=== PATIENT | male | born 1985 | race Caucasian/White ===

== ENCOUNTER 2022-06-11 11:40 | Inpatient (IN) | payer BC ==
--- OUTSIDE RECORDS SUMMARY | 2022-06-11 11:50 | XMS REPORT | Continuity of Care Document ---
:1985 Author Organization [facility] t Address [address] [place] [address] Care Team Providers Name Role Phone JOSE PABON Primary Care Physician Unavailable GUERLINE ADAM Attending Clinician Unavailable Val Lambert Attending Clinician [phone] NHAN EVANS Attending Clinician Unavailable Nhan Stark Attending Clinician Unknown, Attending Attending Clinician Unavailable Doctor Unassigned, [place] Attending Clinician Unavailable Margie Attending Clinician Unavailable Mookie MATIAS, Mackenzie Moore Attending Clinician Unavailable ETHAN PETTY Attending Clinician Unavailable ETHAN PETTY Attending Clinician Unavailable Jakub RAMÍREZ, Tiffanie Bryan Attending Clinician Sravan Ryan MD, Cristofer Castillo Attending Clinician [phone] Ita RAMÍREZ, Pancho Bowling Attending Clinician Peter PRADO, Ethan Attending Clinician Barbara RAMÍREZ, Uvaldo Celeste Attending Clinician ESCOBAR MACHADO Attending Clinician Unavailable Jeannette RAMÍREZ, Escobar Kenney Attending Clinician CODY DENT Attending Clinician Unavailable Alexandria RAMÍREZ, Wai Hemphill Attending Clinician Christofer RAMÍREZ, Evie Alvarez Attending Clinician Ree RAMÍREZ, Yudi Luna Attending Clinician [phone] Laura RAMÍREZ, Cody Massey Attending Clinician Kwame MATIAS, Niesha Attending Clinician Unavailable Kathleen Petty Attending Clinician Unavailable Daniela Baumann Attending Clinician Unavailable MINOR ALVAREZ Attending Clinician Unavailable Minor Alvarez OD Attending Clinician UNKNOWN, ATTENDING Attending Clinician Unavailable ESTELA GOMES Attending Clinician Unavailable MELLO DARDEN Attending Clinician Unavailable Aurora Mcgowan Audio Employee Attending Clinician Unavailable Michelle OSBORNE, Marla Moore Attending Clinician MARLA LEE Attending Clinician Unavailable Heidi Diaz MD Attending Clinician Tito Stewart MD Attending Clinician Pcp-Lab Attending Clinician Unavailable Romero RAMÍREZ, Rachell Attending Clinician Ye Kirkpatrick MD Attending Clinician Darwin Yao MD Attending Clinician Piazza_D Admitting Clinician Unavailable ETHAN PETTY Admitting Clinician Unavailable Ethan Petty DO Admitting Clinician ESCOBAR MACHADO Admitting Clinician Unavailable YUDI KEENAN Admitting Clinician Unavailable Yudi Keenan MD Admitting Clinician [phone] Physician, No Primary or Family Admitting Clinician Unavaila ble Payers Payer Name Policy Type Policy Number Effective Date Expiration Date Samreen [id number] [place] [id number] 2022 (POS) 00:00:00 [facility] [id number] 2021 (PPO) 00:00:00 Problems Condition Condition Condition Status Onset Resolution Last Treating Co mments Source Name Details Category Date Date Treatment Clinician Date Asperger's Asperger's Problem Active V illage disorder Disorder 09-11 Family 00:00: Practic 00 e Acute Acute Problem [facility] pancreatit Pancreatit 08-11 Fa crystal is is 00:00: Practic 00 e Type II Type II Problem [facility] diabetes Diabetes 08-11 Family mellitus Mellitus 00:00: Practi c uncontroll Uncontroll 00 e ed ed Tobacco Tobacco Disease Active Univers use use 3-30 ity of disorder disorder 00:00: [place] 00 Medical Branch Type 2 Type 2 Disease Active Univers diabetes diabetes 3-30 ity of mellitus mellitus 00:00: [place] without without 00 Medical complicati complicati Br anch on, on, without without long-term long-term current current use of use of insulin insulin SALVADOR SALVADOR Disease Active Univers (obstructi (obstructi 3-30 it y of ve sleep ve sleep 00:00: [place] apnea) apnea) 00 Medical Branch Abnormal Abnormal Disease Active Unive rs liver liver 3-04 ity of function function 00:00: [place] tests tests 00 Medical Branch Allergy to Allergy to Disease Active Overview : Univers other other 3-04 Formattin ity of foods foods 00:00: g of this [place] 00 note Medical might be Branch different from the original. 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-04 it y of recurrent recurrent 00:00: [place] allen major major 00 Medical depressive depressive Br anch disorder disorder Obesity Obesity Disease Active Univers 3-04 ity of 00:00: [place] Medical [facility] Obstructiv Obstructiv Disease Active U nivers e sleep e sleep 3-04 ity of apnea apnea 00:00: [place] (adult) (adult) 00 Medical (pediatric (pediatric Br anch ) ) Other Other Disease Active Univers specified specified 3-04 ity of pervasive pervasive 00:00: [place] developmen developmen 00 Me dical augusto augusto Branch disorders disorders No known No known Disease Unive rs active active ity of problems problems [facility] Allergies, Adverse Reactions, Alerts Allergy Allergy Status Severity Reaction(s) Onset Inactive Treating Comm ents Source Name Type Date Date Clinician SHELLFIS DRUG Active Rash Univers H INGREDI 07-10 ity of DERIVED 00:00: [place] [facility] Shellfis Propensi Active Rash RN Univer s h ty to 07-10 confirmed ity of Derived adverse 00:00: with [place] reaction 00 patient Medical s that Branch allergy is to shellfish only, has received Iodine before with no reaction. Penicill DA Active U UNKNOWN 2020-04 [facility] ins 05-29 [place] 00:00: [facility] 00 are [facility] shellfis FA Active U UNKNOWN 2020-04 [facility] h 05-29 [place] derived 00:00: [facility] 00 are [facility] shellfis FA Active SV 2018-04 [facility] h 06-03 [place] derived 00:00: d 00 [facility] shellfis FA Active SV HIVES 2018-04 [facility] h 2 Clear derived 00:00: [place] 00 [facility] IODINE Drug Active Rash 2013-04 Univers AND Class 0-08 ity of IODIDE 00:00: [place] CONTAINI 00 Medical NG Branch PRODUCTS Iodine Propensi Active Rash 2013-04 Univers And ty to 0-08 ity of Iodide adverse 00:00: [place] Containi reaction 00 Medica l ng s Branch Products PENICILL Drug Active Unknown-Cmnt Un cathy INS Class 7-01 ity of 00:00: [place] 00 Medical Branch Penicill Propensi Active Unknown - Uni vers ins ty to See comments 10-10 ity of adverse 00:00: [place] reaction 00 Medical s Branch Penicill Propensi Active Unknown - Uni vers ins ty to See comments 10-10 ity of adverse 00:00: [place] reaction 00 Medical s Branch Penicill Propensi Active Unknown - Uni vers ins ty to See comments 10-10 ity of adverse 00:00: [place] reaction 00 Medical s Branch PENICILL DA Active U [facility] IN 09-13 Clear 00:00: [place] 00 [facility] Penicill Allergy Active [place] in v to Family substanc Practic e e SULFA Allergy Active [place] (SULFONA to Family MIDE substanc Practic ANTIBIOT e e ICS) Social History Social Habit Start Date Stop Date Quantity Comments Source History [facility] University o f Alcohol Frequency [facility] Branch History [facility] o f Alcohol Std Drinks [facility] Branch History [facility] o f Alcohol Binge [facility] Branch History of tobacco Cigarette Smoker University of use [facility] Exposure to 2022-03-30 2022-04-09 Yes University of SARS-CoV-2 (event) 00:00:00 10:16:00 [facility] Alcohol intake 2022-01-20 2022-01-20 Current drinker Unive rsity of 00:00:00 00:00:00 of alcohol [facility] (finding) Branch Tobacco use and 2019-07-24 2019-07-24 Smokeless Universit y of exposure 00:00:00 00:00:00 tobacco non-user [facility] dical Branch Cigarettes smoked 2019-07-24 2019-07-24 Univers ity of current (pack per 00:00:00 00:00:00 [facility] ) - Reported Branch Cigarette 2019-07-24 2019-07-24 University of pack-years 00:00:00 00:00:00 [facility] Alcohol Comment 2018-11-21 2018-11-21 Seldom Universit y of 00:00:00 00:00:00 [facility] Sex [birth year] Universit y of 00:00:00 00:00:00 [facility] Smoking Status Start Date Stop Date Source Never Smoker [place] Family Dash partida Unknown if ever smoked Universit y of [facility] Smokes tobacco daily 2019-07-24 00:00:00 Univers ity [facility] Medications Ordered Filled Start Stop Current Ordering Indication Dosage Frequency Signature Comments Components Source Medication Medication Date Date Medication? Clinician (SIG) Name Name benzonatate 2021-04 Yes [id number] 200mg Take 1 Univers 200 mg 2-29 capsule by ity of capsule 00:00: mouth 3 [place] (three) Medical times [place] daily as needed for Cough. fluticasone 2021-04 Yes [id number] 2{spray Use 2 Univers propionate 2-29 } Sprays in ity of 50 00:00: each [place] mcg/actuati 00 nostril in Me dical on nasal the Branch spray morning. benzonatate 2021-04 Yes [id number] 200mg Take 1 Univers 200 mg 2-29 capsule by ity of capsule 00:00: mouth 3 [place] 00 (three) Medical times Branch daily as needed for Cough. fluticasone 2021-04 Yes [id number] 2{spray Use 2 Univers propionate 2-29 } Sprays in ity of 50 00:00: each [place] mcg/actuati 00 nostril in Me dical on nasal the Branch spray morning. benzonatate 2021-04 Yes [id number] 200mg Take 1 Univers 200 mg 2-29 capsule by ity of capsule 00:00: mouth 3 [place] 00 (three) Medical times Branch daily as needed for Cough. fluticasone 2021-04 Yes [id number] 2{spray Use 2 Univers propionate 2-29 } Sprays in ity of 50 00:00: each [place] mcg/actuati 00 nostril in Me dical on nasal the Branch spray morning. predniSONE 2021-04- Yes [id number] 40mg Take 2 Univers 20 mg 2-29 01-04 tablets by ity of tablet 00:00: 05:59 mouth in [place] 00 :00 the Medical morning Branch for 5 days. predniSONE 2021-04- Yes [id number] 40mg Take 2 Univers 20 mg 04-15 tablets by ity of tablet 00:00: 05:59 mouth in [place] 00 :00 the Medical morning Branch for 5 days. predniSONE 2021-04- Yes [id number] 40mg Take 2 Univers 20 mg - tablets by ity of tablet 00:00: 05:59 mouth in [place] 00 :00 the Medical morning Branch for 5 days. insulin 2021-04 Yes 38U 38 Units, Unive rs glargine 0-16 Subcutaneo ity o f (LANTUS 02:00: us, [facility], [place] U-100) 00 First dose Medical injection (after Branch 38 Units last modificati on) on 01/24/22 at 2100, Until Discontinu ed, Routine insulin 2021-04 Yes 7U 7 Units, Univer s lispro 0-15 Subcutaneo ity of (human) 17:00: us, TID [place] (HumaLOG 00 MEALS, Medical U-100) First dose Branch injection 7 (after Units last modificati on) on 01/24/22 at 1200, Until Discontinu ed, Routine insulin 2021-04- No 35U 35 Units, Univ ers glargine 0-15 10-15 Subcutaneo ity of (LANTUS 02:00: 14:43 us, [facility], [place] U-100) 00 :22 First dose Medical injection on Wed Branch 35 Units 01/23/22 at 2100, Until Discontinu ed, Routine insulin 2021-04 Yes [id number] 25U inject 25 Univers glargine 0-15 Units ity of 100 unit/mL 00:00: under the [place] injection 00 skin at Medical bedtime. Branch insulin 2021-04 Yes [id number] 6U inject 6 U nivers lispro, 0-15 Units ity of human, 100 00:00: under the [place] unit/mL 00 skin in Medical injection the Branch morning and 6 Units at noon and 6 Units in the evening. inject with meals. insulin 2021-04 Yes [id number] 2U inject 2 U nivers lispro, 0-15 Units ity of human, 100 00:00: under the [place] unit/mL 00 skin 3 Medical injection (three) Branch times daily with meals and at bedtime. insulin 2021-04 Yes [id number] 25U inject 25 Univers glargine 0-15 Units ity of 100 unit/mL 00:00: under the [place] injection 00 skin at Medical bedtime. Branch insulin 2021-04 Yes [id number] 6U inject 6 U nivers lispro, 0-15 Units ity of human, 100 00:00: under the [place] unit/mL 00 skin in Medical injection the Branch morning and 6 Units at noon and 6 Units in the evening. inject with meals. insulin 2021-04 Yes [id number] 2U inject 2 U nivers lispro, 0-15 Units ity of human, 100 00:00: under the [place] unit/mL 00 skin 3 Medical injection (three) Branch times daily with meals and at bedtime. insulin 2021-04 Yes [id number] 25U inject 25 Univers glargine 0-15 Units ity of 100 unit/mL 00:00: under the [place] injection 00 skin at Medical bedtime. Branch insulin 2021-04 Yes [id number] 6U inject 6 U nivers lispro, 0-15 Units ity of human, 100 00:00: under the [place] unit/mL 00 skin in Medical injection the Branch morning and 6 Units at noon and 6 Units in the evening. inject with meals. insulin 2021-04 Yes [id number] 2U inject 2 U nivers lispro, 0-15 Units ity of human, 100 00:00: under the [place] unit/mL 00 skin 3 Medical injection (three) Branch times daily with meals and at bedtime. insulin 2021-04 Yes [id number] 25U inject 25 Univers glargine 0-15 Units ity of 100 unit/mL 00:00: under the [place] injection 00 skin at Medical bedtime. Branch insulin 2021-04 Yes [id number] 6U inject 6 U nivers lispro, 0-15 Units ity of human, 100 00:00: under the [place] unit/mL 00 skin in Medical injection the Branch morning and 6 Units at noon and 6 Units in the evening. inject with meals. insulin 2021-04 Yes [id number] 2U inject 2 U nivers lispro, 0-15 Units ity of human, 100 00:00: under the [place] unit/mL 00 skin 3 Medical injection (three) Branch times daily with meals and at bedtime. insulin 2021-04 Yes [id number] 25U inject 25 Univers glargine 0-15 Units ity of 100 unit/mL 00:00: under the [place] injection 00 skin at Medical bedtime. Branch insulin 2021-04 Yes [id number] 6U inject 6 U nivers lispro, 0-15 Units ity of human, 100 00:00: under the [place] unit/mL 00 skin in Medical injection the Branch morning and 6 Units at noon and 6 Units in the evening. inject with meals. insulin 2021-04 Yes [id number] 2U inject 2 U nivers lispro, 0-15 Units ity of human, 100 00:00: under the [place] unit/mL 00 skin 3 Medical injection (three) Branch times daily with meals and at bedtime. insulin 2021-04 Yes [id number] 25U inject 25 Univers glargine 0-15 Units ity of 100 unit/mL 00:00: under the [place] injection 00 skin at Medical bedtime. Branch insulin 2021-04 Yes [id number] 6U inject 6 U nivers lispro, 0-15 Units ity of human, 100 00:00: under the [place] unit/mL 00 skin in Medical injection the Branch morning and 6 Units at noon and 6 Units in the evening. inject with meals. insulin 2021-04 Yes [id number] 2U inject 2 U nivers lispro, 0-15 Units ity of human, 100 00:00: under the [place] unit/mL 00 skin 3 Medical injection (three) Branch times daily with meals and at bedtime. Sliding 2021-04 Yes Subcutaneo Univ ers Scale 0-14 us, TID ity of Insulin - 22:00: MEALS+HS, [place] Lispro 00 First dose Medical (HumaLOG) + on Wed Branch Fsbg 01/23/22 Testing at 1700, Until Discontinu ed, Routine insulin 2021-04- No 6U 6 Units, Unive rs lispro 0-14 10-15 Subcutaneo ity of (human) 22:00: 14:43 us, TID [place] (HumaLOG 00 :22 MEALS, Medical U-100) First dose Branch injection 6 on Fri Units 01/23/22 at 1700, Until Discontinu ed, Routine dextrose 2021-04 Yes 250mL 250 mL, IV Un cathy 10% (D10W) 0-14 Infusion, ity of bolus 21:29: PRN - SEE [place] infusion 00 INSTRUCTIO Medic al 250 mL NS, Branch Administer over 60 Minutes, Other, If blood glucose is < or = 70 mg/dL and patient is unable to swallow or has mental status changes, Starting on 01/23/22 at 1629
If blood glucose is < or = 70 mg/dL and patient is unable to swallow or has mental status changes (Give glucagon order if patient needs fluid restrictio n): IF IV access available: Dextrose 10%. 1. 125 mL (? bag) of D10W IV infusion - equivalent to 12.5 g dextrose 2. Blood glucose - draw blood glucose 15 minutes after D10W Administra tion. 3. If blood glucose is < 80 mg/dL, repeat.
glucagon 2021-04 Yes 1mg 1 mg, Univers (GLUCAGEN 0-14 Intramuscu ity of DIAGNOSTIC 21:28: lar, PRN, [place] KIT) 56 Starting Medical injection 1 on Fri Branch mg 01/23/22 at 1628, Until Discontinu ed, SERG, Blood Glucose < or = 70 mg/dL and patient is unable to swallow or has mental changes. KCL 2021-04- No 40meq 40 mEq, Univers (KLOR-CON 0-13 10-13 Oral, ity of M20) tablet 20:02: 20:36 ONCE, 1 [place] 40 mEq 00 :00 dose, On Medical [place] Branch 01/22/22 at 1515, Routine D10W 10 % 2021-04- No at 175 Unive rs IV infusion 0-13 10-14 mL/hr, IV it y of 14:45: 14:02 Infusion, [place] 00 :27 CONTINUOUS Medical , Starting Branch on [place] 01/22/22 at 0945, Until 01/23/22 at 0902, Routine D10W 10 % 2021-04- No at 150 Unive rs IV infusion 0-13 10-13 mL/hr, IV it y of 11:30: 14:37 Infusion, [place] 00 :29 CONTINUOUS [facility] , Starting Branch on [facility] 01/22/22 at 0630, Until [facility] 01/22/22 at 0937, Routine D10W 10 % 2021-04- No at 250 Unive rs IV infusion 0-13 10-13 mL/hr, IV it y of 10:15: 11:26 Infusion, [place] 00 :23 CONTINUOUS Medical , Starting Branch on [facility] 01/22/22 at 0515, Until [facility] 01/22/22 at 0626, Routine D10W 10 % 2021-04- No at 200 Unive rs IV infusion 0-13 10-13 mL/hr, IV it y of 07:00: 10:01 Infusion, [place] 00 :12 CONTINUOUS [facility] , Starting Branch on [facility] 01/22/22 at 0200, Until [facility] 01/22/22 at 0501, Routine KCL 2021-04- No 40meq 40 mEq, Univers (KLOR-CON 0-13 10-13 Oral, ity of M20) tablet 06:30: 05:48 ONCE, 1 [place] 40 mEq 00 :00 dose, On Medical [facility] Branch 01/22/22 at 0130, Routine D10W 10 % 2021-04- No at 150 Unive rs IV infusion 0-13 10-13 mL/hr, IV it y of 05:30: 06:54 Infusion, [place] 00 :00 [facility] , Starting Branch on [facility] 01/22/22 at 0030, Until [facility] 01/22/22 at 0154, Routine atorvastati 2021-04 Yes 40mg 40 mg, Univ ers n (LIPITOR) 0-13 Oral, QHS, it y of tablet 40 02:00: First dose [place] mg 00 on [facility] 01/21/22 Branch at 2100, Until Discontinu ed, Routine acetaminoph 2021-04 Yes 650mg 650 mg, Un cathy en 0-13 Oral, ity of (TYLENOL) 01:04: [facility], [place] tablet 650 43 Starting Medic al mg on [facility] Branch 01/21/22 at 2004, Until Discontinu ed, Routine, Pain (scale 4-6), Temp > 38.5 C D5W IV 2021-04- No 1000mL at 150 Univer s infusion 0-12 10-13 mL/hr, IV ity o f 1,000 mL 23:15: 03:56 Infusion, [place] 00 :46 CONTINUOUS Medical , Starting Branch on Wed01/21/22 at 1815, Until Wed01/21/22 at 2256, Routine D5W IV 2021-04- No 1000mL at 125 Univer s infusion 0-12 10-12 mL/hr, IV ity o f 1,000 mL 21:30: 23:06 Infusion, [place] 00 :57 CONTINUOUS Medical , Starting Branch on Wed01/21/22 at 1630, Until Wed01/21/22 at 1806, Routine KCL 2021-04- No 40meq 40 mEq, Univers (KLOR-CON 0-12 10-12 Oral, ity of M20) tablet 17:23: 17:39 ONCE, 1 [place] 40 mEq 00 :00 dose, On Medical Wed Branch 01/21/22 at 1230, SERG D5W IV 2021-04- No 1000mL at 100 Univer s infusion 0-12 10-12 mL/hr, IV ity o f 1,000 mL 16:34: 21:25 Infusion, [place] 00 :09 CONTINUOUS Medical , Starting Branch on Wed01/21/22 at 1145, Until Wed01/21/22 at 1625, Routine insulin 2021-04- No .2U/kg/ 0.2 Univer s regular 0-12 10-14 h Units/kg/h ity o f human 16:31: 11:16 r ?98.9 kg [place] (HUMULIN R) 10 :12 (19.78 Medica l 100 Units mL/hr), IV Bran ch in NaCl Infusion, 0.9% (NS) TITRATE, 100 mL Parameters infusion in Admin. Instr., Starting on Wed01/21/22 at 1131
PL EASE USE NORMOGLYCE MARILEE CALCULATOR &nbs p;For Patients WITHOUT ESRD: &nbs p;INITIA TION OF INSULIN DRIP:&nb sp; I f two consecutiv e blood glucose levels (BG) are at or above 180 mg/dL: begin continuous intravenou s infusion of regular Insulin (100 units/100 mL NS) at the following rate: as follows:&n bsp; 1 unit/hr (1 mL/hr.) if initial BG between 180 and 220 mg/dL OR 2 units/hr (2 mL/hr.) if initial BG above 220 mg/dL. &nbs p;Check BG at least every hour until three consecutiv e BG measuremen ts remain in the 140- 180 mg/dL range; BG monitoring may then change to every 2 hours if patient is otherwise stable. Go back to closer BG monitoring as soon as condition warrants. &nbs p; INSULIN RATE ADJUSTMENT INSTRUCTIO NS (to keep BG in the 140- 180 mg/dL range) &n bsp;FOR BLOOD GLUCOSE LESS THAN OR EQUAL THAN 70 MG/DL: Stop insulin infusion, notify ICU dimension warehouse supervisor, and treat using hypoglycem ia protocol. Once BG &n bsp;greate r than 80 mg/dL start monitoring glucose every hour. Restart Insulin infusion at HALF of prior rate only when TWO consecutiv e BG levels 1 hour apart are at or above 180 mg/dL. &nbs p;FOR BLOOD GLUCOSE BETWEEN 71-139 MG/DL:&nbs p; St op insulin and continue to check BG every hour.&nbsp ; Res tart insulin infusion at HALF of prior rate once BG is above 140 mg/dL.&nbs p; FO R BLOOD GLUCOSE BETWEEN 140-180 MG/DL: Monitor BG hourly; may recheck BG in 2 hours if BG has been stable within this range for THREE consecutiv e readings.& nbsp;&nbsp ;If BG is stable (+/- 20 mg/dL change) at 140-180 mg/dL, no insulin rate change is needed.&nb sp; If BG hourly levels decreasing by more than 20 mg/dL: DECREASE insulin rate by 1.0 unit/hr. If BG hourly levels increasing by more than 20 mg/dL: INCREASE insulin rate by 0.5 unit/hr.&n bsp; FOR BLOOD GLUCOSE ABOVE 180 MG/DL: Monitor BG hourly. If BG falls by less than 40 mg/dL from previous measure, increase insulin rate by 1 unit an hour if BG is between 180 and 220 mg/dL and by 2 units an hour if BG is above 220 mg/dL. Recheck BG in 1 hour.&nbsp ; If BG falls by 40 mg/dL or more from previous measure, then no rate change is needed.&nb sp; N otify ICU Lithoplate Maker if BG remains above 220 mg/dL for longer than 4 hours despite treatment.
fenofibrate 2021-04 Yes 134mg 134 mg, Un cathy micronized 0-12 Oral, ity of (LOFIBRA) 14:00: DAILY, [place] capsule 134 00 First dose Me dical mg on Wed Branch 01/21/22 at 0900, Until Discontinu ed, Routine heparin 2021-04 Yes 5000U 5,000 Univers (porcine) 0-12 Units, ity of injection 13:00: Subcutaneo [place] 5,000 Units 00 us, Q12H, Med ical First dose Branch on Wed01/21/22 at 0800, Until Discontinu ed, Routine KCL 2021-04- No 40meq 40 mEq, Univers (KLOR-CON 001-21 Oral, ity of M20) tablet 07:30: 09:27 ONCE, 1 [place] 40 mEq 00 :00 dose, On Medical Wed Branch 01/21/22 at 0230, Routine potassium 2021-04- No 20meq 20 mEq, IV Univers chloride in 001-21 Piggyback, i ty of water (KCL) 07:00: 10:59 Q2H, 2 [place] 20 mEq/100 00 :00 doses, Medical mL RTU IVPB First dose Br anch 20 mEq on Wed01/21/22 at 0200, Last dose on Wed01/21/22 at 0400, 100 mL magnesium 2021-04- No 2g 2 g, IV Univ ers sulfate in 001-21 Piggyback, it y of water 2 06:30: 07:38 Administer [place] gram/50 mL 00 :00 over 60 Medica l (4 %) Minutes, Branch infusion 2 ONCE, 1 g dose, On Wed01/21/22 at 0130, Routine KCL 2021-04- No 40meq 40 mEq, Univers (KLOR-CON 0-12 10-12 Oral, ity of M20) tablet 06:00: 06:27 ONCE, 1 [place] 40 mEq 00 :00 dose, On Medical Wed Branch 01/21/22 at 0100, Routine KCL 2021-04 No 20meq 20 mEq, Univers (KLOR-CON 0-12 10-12 Oral, Q2H, ity of M20) tablet 03:00: 04:55 2 doses, [place] 20 mEq 00 :00 First dose Medical on Wed Branch 01/20/22 at 2200, Last dose on Wed01/21/22 at 0000, Routine dextrose 50 2021-04 Yes 25mL 25 mL, Univ ers % in water 0-12 Slow IV ity of (D50W) 02:32: Push, PRN, [place] injection 21 Starting Medica l 25 mL on [facility] Branch 01/20/22 at 2132, Until Discontinu ed, SERG, Blood Glucose < or = 70 mg/dL and patient is unable to swallow or has mental status changes. glucagon 2021-04 No 1mg 1 mg, Univers (GLUCAGEN 0-14 Intramuscu ity of DIAGNOSTIC 02:32: 19:38 lar, PRN, [place] KIT) 21 :50 Starting Medical injection 1 on [facility] mg 01/20/22 at 2132, Until Wed01/23/22 at 1438, SERG, Blood Glucose < or = 70 mg/dL and patient is unable to swallow or has mental changes. insulin 2021-04- No 9U/h 9 Units/hr Uni vers regular 001-21 (9 mL/hr), ity o f human 09:18: 16:35 IV [place] (HUMULIN R) 37 :30 Infusion, Med ical 100 Units TITRATE, Branch in NaCl Parameters 0.9% (NS) in Admin. 100 mL Instr., infusion Starting on Wed01/20/22 at 0418
PL EASE USE NORMOGLYCE MARILEE CALCULATOR &nbs p;For Patients WITHOUT ESRD: &nbs p;INITIA TION OF INSULIN DRIP:&nb sp; I f two consecutiv e blood glucose levels (BG) are at or above 180 mg/dL: begin continuous intravenou s infusion of regular Insulin (100 units/100 mL NS) at the following rate: as follows:&n bsp; 1 unit/hr (1 mL/hr.) if initial BG between 180 and 220 mg/dL OR 2 units/hr (2 mL/hr.) if initial BG above 220 mg/dL. &nbs p;Check BG at least every hour until three consecutiv e BG measuremen ts remain in the 140- 180 mg/dL range; BG monitoring may then change to every 2 hours if patient is otherwise stable. Go back to closer BG monitoring as soon as condition warrants. &nbs p; INSULIN RATE ADJUSTMENT INSTRUCTIO NS (to keep BG in the 140- 180 mg/dL range) &n bsp;FOR BLOOD GLUCOSE LESS THAN OR EQUAL THAN 70 MG/DL: Stop insulin infusion, notify ICU dimension warehouse supervisor, and treat using hypoglycem ia protocol. Once BG &n bsp;greate r than 80 mg/dL start monitoring glucose every hour. Restart Insulin infusion at HALF of prior rate only when TWO consecutiv e BG levels 1 hour apart are at or above 180 mg/dL. &nbs p;FOR BLOOD GLUCOSE BETWEEN 71-139 MG/DL:&nbs p; St op insulin and continue to check BG every hour.&nbsp ; Res tart insulin infusion at HALF of prior rate once BG is above 140 mg/dL.&nbs p; FO R BLOOD GLUCOSE BETWEEN 140-180 MG/DL: Monitor BG hourly; may recheck BG in 2 hours if BG has been stable within this range for THREE consecutiv e readings.& nbsp;&nbsp ;If BG is stable (+/- 20 mg/dL change) at 140-180 mg/dL, no insulin rate change is needed.&nb sp; If BG hourly levels decreasing by more than 20 mg/dL: DECREASE insulin rate by 1.0 unit/hr. If BG hourly levels increasing by more than 20 mg/dL: INCREASE insulin rate by 0.5 unit/hr.&n bsp; FOR BLOOD GLUCOSE ABOVE 180 MG/DL: Monitor BG hourly. If BG falls by less than 40 mg/dL from previous measure, increase insulin rate by 1 unit an hour if BG is between 180 and 220 mg/dL and by 2 units an hour if BG is above 220 mg/dL. Recheck BG in 1 hour.&nbsp ; If BG falls by 40 mg/dL or more from previous measure, then no rate change is needed.&nb sp; N otify ICU Lithoplate Maker if BG remains above 220 mg/dL for longer than 4 hours despite treatment.
morpHINE (4 2021-04 No 4mg 4 mg, Slow Univers mg/mL) 001-20 IV Push, ity of injection 4 08:30: 07:46 ONCE, 1 [place] mg 00 :00 dose, On Medical [facility] 01/20/22 at 0330, STAT iopamidol 2021-04- No [id number] 100mL 100 mL, Univers (ISOVUE 001-20 Intravenou ity o f 370-500 mL) 08:00: 08:00 s, ONCE, 1 [place] injection 00 :00 dose, On Medica l 100 mL [facility] 01/20/22 at 0300, Routine ondansetron 2021-04 No 4mg 4 mg, Slow Univers (ZOFRAN 001-20 IV Push, ity of (PF)) 07:30: 07:46 ONCE, 1 [place] injection 4 00 :00 dose, On Medi elian mg [facility] 01/20/22 at 0230, SERG cephALEXin 2021- No [id number] 500mg Take 1 Univers (KEFLEX) 08-09 [id number] capsule by it y of 500 mg 00:00: 04:59 mouth 2 [place] capsule 00 :00 (two) Medical [facility] daily for 7 days. fenofibrate Yes [id number] 134mg Take 1 Univers micronized 4-04 capsule by ity of 134 mg 00:00: mouth [place] capsule 00 daily. [facility] Branch fenofibrate Yes [id number] 134mg Take 1 Univers micronized 4-04 capsule by ity of 134 mg 00:00: mouth [place] capsule 00 daily. Medical Branch fenofibrate Yes [id number] 134mg Take 1 Univers micronized 4-04 capsule by ity of 134 mg 00:00: mouth [place] capsule 00 daily. Medical Branch fenofibrate Yes [id number] 134mg Take 1 Univers micronized 4-04 capsule by ity of 134 mg 00:00: mouth [place] capsule 00 daily. Medical Branch fenofibrate Yes [id number] 134mg Take 1 Univers micronized 4-04 capsule by ity of 134 mg 00:00: mouth [place] capsule 00 daily. Medical Branch fenofibrate Yes [id number] 134mg Take 1 Univers micronized 4-04 capsule by ity of 134 mg 00:00: mouth [place] capsule 00 daily. Medical Branch fenofibrate Yes [id number] 134mg Take 1 Univers micronized 4-04 capsule by ity of 134 mg 00:00: mouth [place] capsule 00 daily. Medical Branch fenofibrate Yes [id number] 134mg Take 1 Univers micronized 4-04 capsule by ity of 134 mg 00:00: mouth [place] capsule 00 daily. Medical Branch fenofibrate Yes [id number] 134mg Take 1 Univers micronized 4-04 capsule by ity of 134 mg 00:00: mouth [place] capsule 00 daily. Medical Branch fenofibrate Yes [id number] 134mg Take 1 Univers micronized 4-04 capsule by ity of 134 mg 00:00: mouth [place] capsule 00 daily. Medical Branch Sliding Yes Subcutaneo Univ ers Scale 4-03 us, TID ity of Insulin - 22:00: MEALS+HS, [place] Lispro 00 First dose Medical (HUMALOG) + (after Branch Fsbg last Testing modificati on) on 07/13/21 at 1700, Until Discontinu ed, Routine insulin Yes 15U 15 Units, Unive rs glargine 4-03 Subcutaneo ity o f (LANTUS 14:00: [place], DAILY, [place] U-100) 00 First dose Medical injection on Sun Branch 15 Units 07/13/21 at 0900, Until Discontinu ed, Routine magnesium 2021- No 2g 2 g, IV Univ ers sulfate in 07-13 04-03 Piggyback, it y of water 2 12:30: 14:23 Administer [place] gram/50 mL 00 :00 over 60 Medica l (4 %) Minutes, Branch infusion 2 ONCE, 1 g dose, On 07/13/21 at 0730, Routine atorvastati Yes [id number] 40mg Take 1 Univers n 40 mg 4-03 tablet by ity of tablet 00:00: mouth at [place] 00 bedtime. Medical Branch lancets Yes [id number] Check Unive rs (TECHLITE 4-03 blood ity of LANCETS) 28 00:00: glucose 3 [place] gauge Misc 00 time(s) a Medi elian day. Branch blood sugar Yes [id number] Check U nivers diagnostic 4-03 blood ity of (GLUCOCARD 00:00: glucose 3 [place] SHINE TEST 00 time(s) a Medi elian STRIPS) day. Branch strip Lancing Yes [id number] Use as Univ ers Device with 4- directed ity of Lancets 00:00: [place] (MULTI-LANC 00 Medical ET DEVICE Branch 2) Kit Insulin Yes [id number] Use as Univ ers [place], 4- directed ity of Disposable, 00:00: [place] (BD INSULIN 00 Medical PEN NEEDLE Branch UF) 31 gauge x 5/16" Ndle atorvastati Yes [id number] 40mg Take 1 Univers n 40 mg 4- tablet by ity of tablet 00:00: mouth at [place] 00 bedtime. Medical Branch lancets Yes [id number] Check Unive rs (TECHLITE 4-03 blood ity of LANCETS) 28 00:00: glucose 3 [place] gauge Misc 00 time(s) a Medi elian day. Branch blood sugar Yes [id number] Check U nivers diagnostic 4-03 blood ity of (GLUCOCARD 00:00: glucose 3 [place] SHINE TEST 00 time(s) a Medi elian STRIPS) day. Branch strip Lancing Yes [id number] Use as Univ ers Device with 4-03 directed ity of Lancets 00:00: [place] (MULTI-LANC 00 Medical ET DEVICE Branch 2) Kit Insulin Yes [id number] Use as Univ ers [place], 4-03 directed ity of Disposable, 00:00: [place] (BD INSULIN 00 Medical PEN NEEDLE Branch UF) 31 gauge x 5/16" Ndle atorvastati Yes [id number] 40mg Take 1 Univers n 40 mg 4-03 tablet by ity of tablet 00:00: mouth at [place] 00 bedtime. Medical Branch lancets Yes [id number] Check Unive rs (TECHLITE 4-03 blood ity of LANCETS) 28 00:00: glucose 3 [place] gauge Misc 00 time(s) a Medi elian day. Branch blood sugar Yes [id number] Check U nivers diagnostic 4-03 blood ity of (GLUCOCARD 00:00: glucose 3 [place] SHINE TEST 00 time(s) a Medi elian STRIPS) day. Branch strip Lancing Yes [id number] Use as Univ ers Device with 4-03 directed ity of Lancets 00:00: [place] (MULTI-LANC 00 Medical ET DEVICE Branch 2) Kit Insulin Yes [id number] Use as Univ ers [place], 4-03 directed ity of Disposable, 00:00: [place] (BD INSULIN 00 Medical PEN NEEDLE Branch UF) 31 gauge x 5/16" Ndle atorvastati Yes [id number] 40mg Take 1 Univers n 40 mg 4-03 tablet by ity of tablet 00:00: mouth at [place] 00 bedtime. Medical Branch lancets Yes [id number] Check Unive rs (TECHLITE 4-03 blood ity of LANCETS) 28 00:00: glucose 3 [place] gauge Misc 00 time(s) a Medi elian day. Branch blood sugar Yes [id number] Check U nivers diagnostic 4-03 blood ity of (GLUCOCARD 00:00: glucose 3 [place] SHINE TEST 00 time(s) a Medi elian STRIPS) day. Branch strip Lancing Yes [id number] Use as Univ ers Device with 4-03 directed ity of Lancets 00:00: [place] (MULTI-LANC 00 Medical ET DEVICE Branch 2) Kit Insulin Yes [id number] Use as Univ ers [place], 4-03 directed ity of Disposable, 00:00: [place] (BD INSULIN Medical PEN NEEDLE Branch UF) 31 gauge x 5/16" Ndle atorvastati 0 Yes [id number] 40mg Take 1 Univers n 40 mg 4-03 tablet by ity of tablet 00:00: mouth at [place] 00 bedtime. Medical Branch lancets Yes [id number] Check Unive rs (TECHLITE 4-03 blood ity of LANCETS) 28 00:00: glucose 3 [place] gauge Misc 00 time(s) a Medi elian day. Branch blood sugar Yes [id number] Check U nivers diagnostic 4-03 blood ity of (GLUCOCARD 00:00: glucose 3 [place] SHINE TEST 00 time(s) a Medi elian STRIPS) day. Branch strip Lancing Yes [id number] Use as Univ ers Device with 4-03 directed ity of Lancets 00:00: [place] (MULTI-LANC 00 Medical ET DEVICE Branch 2) Kit Insulin Yes [id number] Use as Univ ers [place], 4-03 directed ity of Disposable, 00:00: [place] (BD INSULIN Medical PEN NEEDLE Branch UF) 31 gauge x 5/16" Ndle atorvastati 0 Yes [id number] 40mg Take 1 Univers n 40 mg 4-03 tablet by ity of tablet 00:00: mouth at [place] 00 bedtime. Medical Branch lancets Yes [id number] Check Unive rs (TECHLITE 4-03 blood ity of LANCETS) 28 00:00: glucose 3 [place] gauge Misc 00 time(s) a Medi elian day. Branch blood sugar Yes [id number] Check U nivers diagnostic 4-03 blood ity of (GLUCOCARD 00:00: glucose 3 [place] SHINE TEST 00 time(s) a Medi elian STRIPS) day. Branch strip Lancing Yes [id number] Use as Univ ers Device with 4-03 directed ity of Lancets 00:00: [place] (MULTI-LANC 00 Medical ET DEVICE Branch 2) Kit Insulin Yes [id number] Use as Univ ers [place], 4-03 directed ity of Disposable, 00:00: [place] (BD INSULIN 00 Medical PEN NEEDLE Branch UF) 31 gauge x 5/16" Ndle atorvastati Yes [id number] 40mg Take 1 Univers n 40 mg 4-03 tablet by ity of tablet 00:00: mouth at [place] 00 bedtime. Medical Branch lancets Yes [id number] Check Unive rs (TECHLITE 4-03 blood ity of LANCETS) 28 00:00: glucose 3 [place] gauge Misc 00 time(s) a Medi elian day. Branch blood sugar Yes [id number] Check U nivers diagnostic 4-03 blood ity of (GLUCOCARD 00:00: glucose 3 [place] SHINE TEST 00 time(s) a Medi elian STRIPS) day. Branch strip Lancing Yes [id number] Use as Univ ers Device with 4-03 directed ity of Lancets 00:00: [place] (MULTI-LANC 00 Medical ET DEVICE Branch 2) Kit Insulin Yes [id number] Use as Univ ers [place], 4-03 directed ity of Disposable, 00:00: [place] (BD INSULIN Medical PEN NEEDLE Branch UF) 31 gauge x 5/16" Ndle atorvastati Yes [id number] 40mg Take 1 Univers n 40 mg 4-03 tablet by ity of tablet 00:00: mouth at [place] 00 bedtime. Medical Branch lancets Yes [id number] Check Unive rs (TECHLITE 4-03 blood ity of LANCETS) 28 00:00: glucose 3 [place] gauge Misc 00 time(s) a Medi elian day. Branch blood sugar Yes [id number] Check U nivers diagnostic 4-03 blood ity of (GLUCOCARD 00:00: glucose 3 [place] SHINE TEST 00 time(s) a Medi elian STRIPS) day. Branch strip Lancing Yes [id number] Use as Univ ers Device with 4-03 directed ity of Lancets 00:00: [place] (MULTI-LANC 00 Medical ET DEVICE Branch 2) Kit Insulin Yes [id number] Use as Univ ers [place], 4-03 directed ity of Disposable, 00:00: [place] (BD INSULIN 00 Medical PEN NEEDLE Branch UF) 31 gauge x 5/16" Ndle atorvastati 2022-0 Yes [id number] 40mg Take 1 Univers n 40 mg 4-03 tablet by ity of tablet 00:00: mouth at [place] 00 bedtime. Medical Branch lancets Yes [id number] Check Unive rs (TECHLITE 4-03 blood ity of LANCETS) 28 00:00: glucose 3 [place] gauge Misc 00 time(s) a Medi elian day. Branch blood sugar Yes [id number] Check U nivers diagnostic 4-03 blood ity of (GLUCOCARD 00:00: glucose 3 [place] SHINE TEST 00 time(s) a Medi elian STRIPS) day. Branch strip Lancing Yes [id number] Use as Univ ers Device with 4-03 directed ity of Lancets 00:00: [place] (MULTI-LANC 00 Medical ET DEVICE Branch 2) Kit Insulin Yes [id number] Use as Univ ers [place], 4-03 directed ity of Disposable, 00:00: [place] (BD INSULIN Medical PEN NEEDLE Branch UF) 31 gauge x 5/16" Ndle atorvastati Yes [id number] 40mg Take 1 Univers n 40 mg 4-03 tablet by ity of tablet 00:00: mouth at [place] 00 bedtime. Medical Branch lancets Yes [id number] Check Unive rs (TECHLITE 4-03 blood ity of LANCETS) 28 00:00: glucose 3 [place] gauge Misc 00 time(s) a Medi elian day. Branch blood sugar Yes [id number] Check U nivers diagnostic 4-03 blood ity of (GLUCOCARD 00:00: glucose 3 [place] SHINE TEST 00 time(s) a Medi elian STRIPS) day. Branch strip Lancing Yes [id number] Use as Univ ers Device with 4-03 directed ity of Lancets 00:00: [place] (MULTI-LANC 00 Medical ET DEVICE Branch 2) Kit Insulin Yes [id number] Use as Univ ers [place], 4-03 directed ity of Disposable, 00:00: [place] (BD INSULIN 00 Medical PEN NEEDLE Branch UF) 31 gauge x 5/16" Ndle Insulin 2021- No [id number] 22U inject 22 Univers Glargine 4-03 07-03 Units ity of (LANTUS 00:00: 04:59 under the [facility] SOLOSTAR 00 :00 skin daily Medic al U-100 for 90 Branch INSULIN) days. 100 unit/mL (3 mL) injection insulin 2021- No [id number] 3U inject 3 U nivers lispro 4- 07-03 Units ity of (HUMALOG 00:00: 04:59 under the [place] as [place] 00 :00 skin 3 Medical KWIKPEN (three) Branch U-100) 100 times unit/mL daily inph before meals for 90 days. metFORMIN 2021- No [id number] 1000mg Take 2 Univers 500 mg -06 16-03 tablets by ity of tablet 00:00: 04:59 mouth 2 [place] 00 :00 (two) Medical times Branch daily with meals for 90 days. Insulin 2021- No [id number] 22U inject 22 Univers Glargine 4- 07-03 Units ity of (LANTUS 00:00: 04:59 under the [facility] SOLOSTAR 00 :00 skin daily Medic al U-100 for 90 Branch INSULIN) days. 100 unit/mL (3 mL) injection insulin 2021- No [id number] 3U inject 3 U nivers lispro 4- 07-03 Units ity of (HUMALOG 00:00: 04:59 under the [place] 00 :00 skin 3 Medical KWIKPEN (three) Branch U-100) 100 times unit/mL daily inph before meals for 90 days. metFORMIN 2021- No [id number] 1000mg Take 2 Univers 500 mg -06 16-03 tablets by ity of tablet 00:00: 04:59 mouth 2 00 :00 (two) Medical times Branch daily with meals for 90 days. Insulin 2021- No [id number] 22U inject 22 Univers Glargine 4-03 07-03 Units ity of (LANTUS 00:00: 04:59 under the [facility] [employer] SOLOSTAR 00 :00 skin daily Medic al U-100 for 90 Branch INSULIN) days. 100 unit/mL (3 mL) injection insulin 2021- No [id number] 3U inject 3 U nivers lispro 4- 07-03 Units ity of (HUMALOG 00:00: 04:59 under the [place] 00 :00 skin 3 Medical KWIKPEN (three) Branch U-100) 100 times unit/mL daily inph before meals for 90 days. metFORMIN 2021- No [id number] 1000mg Take 2 Univers 500 mg 07-13-03 tablets by ity of tablet 00:00: 04:59 mouth 2 [place] 00 :00 (two) Medical times Branch daily with meals for 90 days. Insulin 2021- No [id number] 22U inject 22 Univers Glargine 07-13-03 Units ity of (LANTUS 00:00: 04:59 [place] SOLOSTAR 00 :00 skin daily Medic al U-100 for 90 Branch INSULIN) days. 100 unit/mL (3 mL) injection insulin 2021- No [id number] 3U inject 3 U nivers lispro 07-13-03 Units ity of (HUMALOG 00:00: 04:59 under the [place] 00 :00 skin 3 Medical KWIKPEN (three) Branch U-100) 100 times unit/mL daily inph before meals for 90 days. metFORMIN 2021- No [id number] 1000mg Take 2 Univers 500 mg 07-13- tablets by ity of tablet 00:00: 04:59 mouth 2 [place] 00 :00 (two) Medical times Branch daily with meals for 90 days. flu 2021- No [id number] .5mL 0.5 mL by Uni vers vaccine, 07-13 Intramuscu ity of cell-based, 00:00: 04:59 lar route [place] 6 months to 00 :00 once now Medi elian 65 yrs 60 for 1 Branch mcg (15 mcg dose. x 4)/0.5 mL flu 2021- No [id number] .5mL 0.5 mL by Uni vers vaccine, 07-13 Intramuscu ity of cell-based, 00:00: 04:59 lar route [place] 6 months to 00 :00 once now Medi elian 65 yrs 60 for 1 Branch mcg (15 mcg dose. x 4)/0.5 mL pen needle, 2021- No [id number] 1{box} 1 Box Univers diabetic 30 07-13 04-03 daily. ity o f gauge x 00:00: 00:00 [place] 316" Ndle 00 :00 Medical [place] fenofibrate Yes 134mg 134 mg, Un cathy micronized 07-12 Oral, ity of (LOFIBRA) 14:00: DAILY, [place] capsule 134 00 First dose Me dical mg on Sat Branch 07/12/21 at 0900, Until Discontinu ed, Routine insulin Yes .15U/kg 5 Units Univ ers lispro 4- /d (rounded ity of (human) 22:00: from 5.075 [place] (HumaLOG 00 Units = Medical U-100) 0.15 Branch injection 5 Units/kg/d Units ay ?101.5 kg), Subcutaneo us, TID MEALS, First dose on Wed07/11/21 at 1700, Until Discontinu ed, Routine Sliding Subcutaneo Uni vers Scale 07-1103 us, Q4H, ity of Insulin - 21:00: 18:48 First dose [place] Lispro 00 :47 on Wed Medical (HUMALOG) + 07/11/21 at [facility] Fsbg 1600, Testing Until Discontinu ed, Routine dextrose Yes 250mL 250 mL, IV Un cathy 10% (D10W) 07-11 Infusion, ity of bolus 20:38: PRN - SEE [place] infusion 48 INSTRUCTIO Medic al 250 mL NS, Branch hypoglycem ia, Starting on Wed07/11/21 at 1538
De xtrose 10% 250 mL bag contains:& nbsp;10 gm = 100 mL 20 gm = 200 mL 25 gm = 250 mL (whole bag) The maximum rate at which dextrose can be infused without producing glycosuria is 0.5 g/kg/hour. &nbs p;BUD: If wrapper is open bag is good for 30 days at room temperatur e. <b r> KCL Yes 40meq 40 mEq, Univers (KLOR-CON 07-11 Oral, ity of M20) tablet 17:45: DAILY, [place] 40 mEq 00 First dose Medical (after Branch last modificati on) on Wed07/11/21 at 1245, Until Discontinu ed, Routine D5W-LR IV 2021- No 1000mL at 200 Uni vers infusion 07-11 mL/hr, IV ity o f 1,000 mL 17:30: 23:45 Infusion, [place] 00 :35 CONTINUOUS Medical , Starting Branch on Wed07/11/21 at 1230, Until Wed07/11/21 at 1845, Routine NaCl 0.9% Yes 10mL 10 mL, Univer s (NS) 07-11 Slow IV ity of injection 13:18: Push, PRN, [place] 10 mL 00 Starting Medical on Wed Branch 07/11/21 at 0818, Until Discontinu ed, Routine, line maintenanc e lidocaine Yes 5mL 5 mL, Univers 1% (PF) 07-11 Subcutaneo ity of (XYLOCAINE) 13:18: us, PRN, [place] injection 5 00 Starting Medi elian mL on Wed Branch 07/11/21 at 0818, Until Discontinu ed, Routine, Local anesthesia acetaminoph Yes 650mg 650 mg, Un cathy en 07-11 Oral, ity of (TYLENOL) 13:14: Q6HPRN, [place] tablet 650 44 Starting Medic al mg on Wed Branch 07/11/21 at 0814, Until Discontinu ed, Routine, Pain (scale 4-6) heparin Yes 5000U 5,000 Univers (porcine) 07-11 Units, ity of injection 13:00: Subcutaneo [place] 5,000 Units 00 us, Q12H, Med ical First dose Branch on Wed07/11/21 at 0800, Until Discontinu ed, Routine D10W 0.9% 2021- No IV Univers NaCl (NS) 07-11 Infusion, ity of WITH 08:30: 13:24 CONTINUOUS [place] ADDITIVES 00 :59 , Starting Medi elian on Wed Branch 07/11/21 at 0330, Until Wed07/11/21 at 0824, 1,000 mL, at 100 mL/hr insulin Yes .05U/kg 0.05 Univers regular 4-01 /h Units/kg/h ity of human 07:30: r ?102.1 [place] (HUMULIN R) 09 kg (5.105 Med ical 100 Units mL/hr, Branch in NaCl rounded to 0.9% (NS) 5.11 100 mL mL/hr), IV infusion Infusion, TITRATE, Parameters in Admin. Instr., Follow DKA Insulin Rate Adjustment Protocol, Starting on Wed07/11/21 at 0230
- Start insulin infusion at 0.1 units/kg /hr. Fixed dose - Hold insulin and NHO STAT if potassium is less than 3.3 mEq/L.&nbs p;- NHO STAT if blood glucose less than 100 mg/dL or greater than 600 mg/dL or if blood glucose not decreased by 50 mg/dL in the first hour of insulin infusion.& nbsp;- Once blood glucose is less than or equal to 200 mg/dL in patient with DKA or blood glucose is less than or equal to 300 mg/dL in patient with HHS, change to fluids with dextrose.< br> insulin 2021-0 202- No .1U/kg/ 0.1 [facility] regular 4-01 04-01 h Units/kg/h ity o f human 02:58: 07:30 r ?102.1 [place] (HUMULIN R) 21 :27 kg (10.21 Med ical 100 Units mL/hr), IV Bran ch in NaCl Infusion, 0.9% (NS) TITRATE, 100 mL Parameters infusion in Admin. Instr., Follow DKA Insulin Rate Adjustment Protocol, Starting on Wed07/10/21 at 2158
- Start insulin infusion at 0.1 units/kg /hr. Fixed dose - Hold insulin and NHO STAT if potassium is less than 3.3 mEq/L.&nbs p;- NHO STAT if blood glucose less than 100 mg/dL or greater than 600 mg/dL or if blood glucose not decreased by 50 mg/dL in the first hour of insulin infusion.& nbsp;- Once blood glucose is less than or equal to 200 mg/dL in patient with DKA or blood glucose is less than or equal to 300 mg/dL in patient with HHS, change to fluids with dextrose.< br> D5W 0.9% IV Univers NaCl (NS) 1 07-11 Infusion, it y of L + KCL 20 02:22: 16:14 at 200 [place] mEq 00 :51 mL/hr, PRN Medical - SEE Branch INSTRUCTIO NS, Starting on Wed07/10/21 at 2122, Until Wed07/11/21 at 1114, SERG, Blood glucose control atorvastati Yes 40mg 40 mg, Univ ers n (LIPITOR) 07-11 Oral, QHS, it y of tablet 40 02:00: First dose [place] mg 00 on [place] [facility] 07/10/21 at Branch 2100, Until Discontinu ed, Routine Sliding No Subcutaneo Uni vers Scale 07-10 us, Q6H, ity of Insulin - 23:00: 19:43 First dose [place] Lispro 00 :23 (after Medical (HumaLOG) + last Branch Fsbg modificati Testing on) on [facility] 07/10/21 at 1800, Until Discontinu ed, Routine iopamidol 2021- No [id number] 100mL 100 mL, Univers (ISOVUE 07-10 Intravenou ity o f 370-500 mL) 15:34: 15:35 s, ONCE, 1 [place] injection 00 :00 dose, On Medica l 100 mL [facility] Branch 07/10/21 at 1045, Routine insulin 2021- No 15U 15 Units, Univ ers glargine 07-10 Subcutaneo ity of (LANTUS 02:00: 03:28 us, QHS, [place] U-100) 00 :23 First dose Medical injection on Wed Branch 15 Units 07/09/21 at 2100, Until Discontinu ed, Routine famotidine Yes 20mg 20 mg, Unive rs (PEPCID 07-10 Slow IV ity of (PF)) 01:00: Push, [place] injection 00 Q12H, Medical 20 mg First dose Branch on Wed07/09/21 at 2000, Until Discontinu ed, Routine heparin 2021- No 5000U 5,000 Univers (porcine) 07-10 Units, ity of injection 01:00: 02:46 Subcutaneo [place] 5,000 Units 00 :43 us, Q12H, Med ical First dose Branch on Wed07/09/21 at 2000, Until Discontinu ed, Routine gemfibroziL 600mg 600 mg, U nivers (LOPID) 07-09 0402 Oral, ity of tablet 600 22:15: 02:56 BIDAC, [place] mg 00 :14 First dose Medical on Wed Branch 07/09/21 at 1715, Until Discontinu ed, Routine Sliding Subcutaneo Uni vers Scale 07-09 0331 us, TID ity of Insulin - 22:00: 17:10 MEALS+HS, [place] Lispro 00 :02 First dose Medical (HumaLOG) + on Wed Branch Fsbg 07/09/21 at Testing 1700, Until Discontinu ed, Routine magnesium No 2g 2 g, IV [facility] ers sulfate in 07-09 Piggyback, it y of water 2 21:00: 23:43 Administer [place] gram/50 mL 00 :00 over 60 Medica l (4 %) Minutes, Branch infusion 2 ONCE, 1 g dose, On Wed07/09/21 at 1600, Routine nicotine Yes 1{patch 1 Patch, Un cathy (NICODERM) 07-09 } Topical, ity o f 21 mg/24 hr 19:45: Administer [place] patch 1 00 over 24 Medical Patch Hours, Branch Q24H, First dose on Wed07/09/21 at 1445, Until Discontinu ed, Routine glucagon Yes 1mg 1 mg, Univers (GLUCAGEN 07-09 Intramuscu ity of DIAGNOSTIC 18:04: lar, PRN, [place] KIT) 43 Starting Medical injection 1 on Wed Branch mg 07/09/21 at 1304, Until Discontinu ed, SERG, Blood Glucose < or = 70 mg/dL and patient is unable to swallow or has mental changes. lactated 1000mL at 306 [facility] ers ringers IV 07-09 04-01 mL/hr, ity of infusion 17:45: 03:37 1,000 mL, [place] 1,000 mL 00 :59 IV Medical Infusion, Branch CONTINUOUS , Starting on Wed07/09/21 at 1245, Until [place] 07/10/21 at 2237, Routine morpHINE 2021- No 4mg 4 mg, Slow Un cathy injection 4 07-09 04-01 IV Push, ity of mg 17:28: 03:26 Q4HPRN, [place] 27 :16 Starting Medical on Wed Branch 07/09/21 at 1228, Until [place] 07/10/21 at 2226, Routine, Pain (scale 7-10) ondansetron Yes 4mg 4 mg, Slow Univers (ZOFRAN 3-30 IV Push, ity of (PF)) 17:27: Q6HPRN, [place] injection 4 50 Starting Medi elian mg on Wed Branch 07/09/21 at 1227, Until Discontinu ed, Routine, Nausea and Vomiting (N/V) ondansetron 2021-0 2021- No 8mg 8 mg, Slow Univers (ZOFRAN 3-30 -30 IV Push, ity of (PF)) 16:30: 15:34 ONCE, 1 [place] injection 8 00 :00 dose, On Medi elian mg Wed Branch 07/09/21 at 1130, SERG NaCl 0.9% 2021- No 1000mL at 999 Uni vers (NS) bolus 3 03-30 mL/hr, ity of infusion 16:30: 16:58 1,000 mL, [place] as 1,000 mL 00 :00 IV Medical Infusion, Branch ONCE, 1 dose, On Wed07/09/21 at 1130, SERG insulin 2021-0 2021- No 6U 6 Units, Unive rs regular 07-09-30 Subcutaneo ity o f human 16:15: 15:22 us, ONCE, [place] (HUMULIN R) 00 :00 1 dose, On Me dical injection 6 Wed Branch Units 07/09/21 at 1115, Routine NaCl 0.9% 2021- No 1000mL at 999 Uni vers (NS) bolus 330 03-30 mL/hr, ity of infusion 14:45: 14:45 1,000 mL, [place] as 1,000 mL 00 :00 IV Medical Infusion, Branch ONCE, 1 dose, On Wed07/09/21 at 0945, SERG ondansetron 2021- No 8mg 8 mg, Slow Univers (ZOFRAN 07-09 IV Push, ity of (PF)) 14:45: 13:49 ONCE, 1 [place] injection 8 00 :00 dose, On Medi elian mg Wed Branch 07/09/21 at 0945, SERG ketorolac 2021- No 30mg 30 mg, Unive rs (TORADOL) 07-09 Intramuscu ity of injection 14:45: 13:49 lar, ONCE, [place] 30 mg 00 :00 1 dose, On Medical Wed Branch 07/09/21 at 0945, SERG morpHINE 2021- No 4mg 4 mg, Slow Un cathy injection 4 07-09 IV Push, ity of mg 14:45: 13:47 ONCE, 1 [place] 00 :00 dose, On Medical Wed Branch 07/09/21 at 0945, STAT azithromyci Yes [id number] 250mg Take 1 Univers n 3-04 tablet by ity of (ZITHROMAX) 00:00: mouth [place] 250 mg 00 SEE-INSTRU Medical tablet CTIONS. Branch Take 500 mg day 1, then 250 mg days 2 to 5. azithromyci Yes [id number] 250mg Take 1 Univers n 3-04 tablet by ity of (ZITHROMAX) 00:00: mouth [place] 250 mg 00 SEE-INSTRU Medical tablet CTIONS. Branch Take 500 mg day 1, then 250 mg days 2 to 5. azithromyci Yes [id number] 250mg Take 1 Univers n 3-04 tablet by ity of (ZITHROMAX) 00:00: mouth [place] 250 mg 00 SEE-INSTRU Medical tablet CTIONS. Branch Take 500 mg day 1, then 250 mg days 2 to 5. azithromyci 2021- No [id number] 250mg Take 1 Univers n 3-04 03-30 tablet by ity of (ZITHROMAX) 00:00: 00:00 [place] 250 mg 00 :00 SEE-INSTRU Medical tablet CTIONS. Branch Take 500 mg day 1, then 250 mg days 2 to 5. carbamide 2020- No [id number] 5[drp] Place 5 Univers peroxide 3-04 04-04 [id number] Drops in ity o f 6.5 % otic 00:00: 04:59 [place] ears [place] solution 00 :00 2 (two) Medical times Branch daily for 30 days. carbamide 2020- No [id number] 5[drp] Place 5 Univers peroxide 3-04 04-04 [id number] Drops in ity o f 6.5 % otic 00:00: 04:59 [place] ears [place] solution 00 :00 2 (two) Medical times Branch daily for 30 days. carbamide 2020- No [id number] 5[drp] Place 5 Univers peroxide 3-04 04-04 [id number] Drops in ity o f 6.5 % otic 00:00: 04:59 [place] ears [place] solution 00 :00 2 (two) Medical times Branch daily for 30 days. SERTraline 2020-0 2020- No 50mg Take 50 mg Univers 50 mg 4-15 04-14 by mouth ity of tablet 01:06: 00:00 daily. [place] 56 :00 [facility] SERTraline 2020-0 2020- No 50mg Take 50 mg Univers 50 mg 4-15 04-14 by mouth ity of tablet 01:06: 00:00 daily. [place] 56 :00 [facility] SERTraline 2020-0 Yes 50mg Take 50 mg U nivers 50 mg 4-14 by mouth ity of tablet 19:11: daily. [address] carbamide 2019-0 2019- No [id number] 5[drp] Place 5 Univers peroxide 4-14 05-15 [id number] Drops in ity o f 6.5 % otic 00:00: 04:59 right ear [place] solution 00 :00 2 (two) Medical times Branch daily for 30 days. carbamide 2019-0 2019- No [id number] 5[drp] Place 5 Univers peroxide 4-14 05-15 [id number] Drops in ity o f 6.5 % otic 00:00: 04:59 right ear [place] solution 00 :00 2 (two) Medical times Branch daily for 30 days. carbamide 2019-0 2019- No [id number] 5[drp] Place 5 Univers peroxide 4-14 05-15 [id number] Drops in ity o f 6.5 % otic 00:00: 04:59 right ear [place] solution 00 :00 2 (two) Medical times Branch daily for 30 days. carbamide 2020- No [id number] 5[drp] Place 5 Univers peroxide 07-24 [id number] Drops in ity o f 6.5 % otic 00:00: 04:59 right ear [place] solution 00 :00 2 (two) Medical times Branch daily for 30 days. SERTraline 2019-0 Yes 50mg Take 50 mg U nivers 50 mg 8-13 by mouth ity of tablet 01:23: daily. [address] SERTraline 2019-0 Yes 50mg Take 50 mg U nivers 50 mg 8-13 by mouth ity of tablet 01:23: daily. [address] SERTraline 2019-0 Yes 50mg Take 50 mg U nivers 50 mg 8-13 by mouth ity of tablet 01:23: daily. [address] SERTraline 2019-0 Yes 50mg Take 50 mg U nivers 50 mg 8-13 by mouth ity of tablet 01:23: daily. [address] SERTraline 2019-0 Yes 50mg Take 50 mg U nivers 50 mg 8-13 by mouth ity of tablet 01:23: daily. [address] SERTraline 2019-0 Yes 50mg Take 50 mg U nivers 50 mg 8-13 by mouth ity of tablet 01:23: daily. [address] SERTraline 2019-0 Yes 50mg Take 50 mg U nivers 50 mg 8-13 by mouth ity of tablet 01:23: daily. [address] ciprofloxac 2018- 2019- No [id number] 4[drp] Place 4 Univers in-dexameth 8-12 08-20 Drops in ity of asone 00:00: 04:59 right ear [place] (CIPRODEX) 00 :00 2 (two) Medica l 0.3-0.1 % times Branch otic drops daily for 7 days. ciprofloxac 2018- 2019- No [id number] 4[drp] Place 4 Univers in-dexameth 8-12 08-20 Drops in ity of asone 00:00: 04:59 right ear [place] (CIPRODEX) 00 :00 2 (two) Medica l 0.3-0.1 % times Branch otic drops daily for 7 days. doxycycline Yes 100mg Take 1 Uni vers 100 mg 5-11 tablet by ity of tablet 00:00: mouth 2 [place] 00 (two) Medical times Branch daily. doxycycline 2018- No 100mg Take 1 Un cathy 100 mg 5-11 08-12 tablet by ity of tablet 00:00: 00:00 mouth 2 [place] 00 :00 (two) Medical times Branch daily. naproxen 2013-04 Yes 500mg Take 1 Tab Un [facility]athy (NAPROSYN) 0-08 by mouth 2 ity of 500 mg 00:00: (two) [place] tablet 00 times Medical daily with Branch meals. naproxen 2013-04- No 500mg Take 1 Tab U nivers (NAPROSYN) 0-08 08-12 by mouth 2 it y of 500 mg 00:00: 00:00 (two) [place] tablet 00 :00 times Medical daily with Branch meals. Lantus Lantus No [facility] Solostar Solostar Solostar Fam patito U-100 U-100 U-100 Practic Insulin 100 Insulin 100 Insulin e unit/mL (3 unit/mL (3 100 mL) mL) unit/mL (3 subcutaneou subcutaneou mL) s pen s pen subcutaneo INJECT 25 INJECT 25 us pen UNITS UNDER UNITS UNDER INJECT 25 THE SKIN THE SKIN UNITS DAILY FOR DAILY FOR UNDER THE 90 DAYS. 90 DAYS. SKIN DAILY FOR 90 DAYS. metformin metformin No metformin [place] 500 mg 500 mg 500 mg Family tablet TAKE tablet TAKE tablet Practic 2 TABLETS 2 TABLETS TAKE 2 e BY MOUTH 2 BY MOUTH 2 TABLETS BY (TWO) TIMES (TWO) TIMES MOUTH 2 DAILY WITH DAILY WITH (TWO) MEALS FOR MEALS FOR TIMES 90 DAYS. 90 DAYS. DAILY WITH MEALS FOR 90 DAYS. pioglitazon pioglitazon No pioglitazo [place] e 15 mg e 15 mg ne 15 mg Famil y tablet TAKE tablet TAKE tablet Practic 1 TABLET BY 1 TABLET BY TAKE 1 e MOUTH EVERY MOUTH EVERY TABLET BY DAY DAY MOUTH EVERY DAY Accu-Chek Accu-Chek No Accu-Chek [facility] Guide Guide Guide Family Glucose Glucose Glucose Practi c Meter TEST Meter TEST Meter TEST e GLUCOSE 3 GLUCOSE 3 GLUCOSE 3 TIMES DAILY TIMES DAILY TIMES DAILY Accu-Chek Accu-Chek No Accu-Chek [facility] Guide test Guide test Guide test Family strips TEST strips TEST strips Practic 3 TIMES 3 TIMES TEST 3 e DAILY DAILY TIMES DAILY Accu-Chek Accu-Chek No Accu-Chek [facility] Softclix Softclix Softclix Fam patito Lancets Lancets Lancets Practi c CHECK BLOOD CHECK BLOOD CHECK e GLUCOSE 3 GLUCOSE 3 BLOOD TIME(S) A TIME(S) A GLUCOSE 3 DAY. DAY. TIME(S) A DAY. atorvastati atorvastati No atorvastat [facility] n 40 mg n 40 mg in 40 mg Famil y tablet TAKE tablet TAKE tablet Practic 1 TABLET BY 1 TABLET BY TAKE 1 e MOUTH MOUTH TABLET BY EVERYDAY AT EVERYDAY AT MOUTH BEDTIME BEDTIME EVERYDAY AT BEDTIME BD BD No BD [place] Ultra-Fine Ultra-Fine Ultra-Fine Family Mini Pen Mini Pen Mini Pen Pra ctic Needle 31 Needle 31 Needle 31 e gauge x gauge x gauge x 3/16" USE 3/16" USE 3/16" USE DAILY FOR DAILY FOR DAILY FOR INSULIN INSULIN INSULIN PENS (4 PENS (4 PENS (4 DOSES DOSES DOSES DAILY) DAILY) DAILY) No known No [facility] fen[facility] fenofibrate No fenofibrat [facility] micronized micronized e Fam patito 134 mg 134 mg micronized Pract ic capsule capsule 134 mg e TAKE 1 TAKE 1 capsule CAPSULE BY CAPSULE BY TAKE 1 MOUTH EVERY MOUTH EVERY CAPSULE BY DAY DAY MOUTH EVERY DAY FreeStyle FreeStyle No FreeStyle [facility] [place] 14 [address] 14 [place] 14 Fam patito Day [place] Day Brashear Day Brashear Practic USE DAILY USE DAILY USE DAILY e TO CHECK TO CHECK TO CHECK BLOOD SUGAR BLOOD SUGAR BLOOD SUGAR FreeStyle FreeStyle No FreeStyle [facility] [place] 14 [place] 14 Gyu 14 Fam patito Day Sensor Day Sensor Day Sensor Practic kit USE kit USE kit USE e DAILY TO DAILY TO DAILY TO CHECK BLOOD CHECK BLOOD CHECK SUGAR SUGAR BLOOD SUGAR Humalog Humalog No Humalog [place] KwikPen KwikPen KwikPen Family (U-100) (U-100) (U-100) Practi c Insulin 100 Insulin 100 Insulin e unit/mL unit/mL 100 subcutaneou subcutaneou unit/mL s INJECT 3 s INJECT 3 subcutaneo UNITS UNDER UNITS UNDER us INJECT THE SKIN 3 THE SKIN 3 3 UNITS (THREE) (THREE) UNDER THE TIMES DAILY TIMES DAILY SKIN 3 BEFORE BEFORE (THREE) MEALS FOR MEALS FOR TIMES 90 DAYS. 90 DAYS. DAILY BEFORE MEALS FOR 90 DAYS. hydrocodone hydrocodone No hydrocodon [place] 5 5 e 5 Family mg-acetamin mg-acetamin mg-acetami Practic ophen 325 ophen 325 nophen 325 e mg tablet 1 mg tablet 1 mg tablet TABLET BY TABLET BY 1 TABLET MOUTH FOUR MOUTH FOUR BY MOUTH TIMES A DAY TIMES A DAY FOUR TIMES NEEDED NEEDED A DAY FOR FOR NEEDED FOR SHOULDER SHOULDER SHOULDER PAIN PAIN PAIN Immunizations Ordered Filled Immunization Date Status Comments [facility] e Immunization Name Name [facility] 2021-08-09 Completed University of 00:00: [facility] 2021-08-09 Completed University of 00:00: [facility] 2021-08-09 Completed University of 00:00: [facility] 2021-08-09 Completed University of 00:00:00 [facility] 2021-08-09 Completed University of 00:00: [facility] 2021-08-09 Completed University of 00:00:00 [facility] 2021-08-09 Completed University of 00:00:00 [facility] SARS-COV-2 COVID-19 2020-05-01 Completed Unive rsity of PFIZER VACCINE 00:00:00 [facility] SARS-COV-2 COVID-19 2020-05-01 Completed Unive rsity of PFIZER VACCINE 00:00:00 [facility] SARS-COV-2 COVID-19 2020-05-01 Completed Unive rsity of PFIZER VACCINE 00:00:00 [facility] SARS-COV-2 COVID-19 2020-05-01 Completed Unive rsity of PFIZER VACCINE 00:00:00 [facility] SARS-COV-2 COVID-19 2020-05-01 Completed Unive rsity of PFIZER VACCINE 00:00:00 [facility] SARS-COV-2 COVID-19 2020-05-01 Completed Unive rsity of PFIZER VACCINE 00:00:00 [facility] SARS-COV-2 COVID-19 2020-05-01 Completed Unive rsity of PFIZER VACCINE 00:00:00 [facility] SARS-COV-2 COVID-19 2020-05-01 Completed Unive rsity of PFIZER VACCINE 00:00:00 [facility] SARS-COV-2 COVID-19 2020-05-01 Completed Unive rsity of PFIZER VACCINE 00:00:00 [facility] SARS-COV-2 COVID-19 2020-05-01 Completed Unive rsity of PFIZER VACCINE 00:00:00 [facility] SARS-COV-2 COVID-19 2020-05-01 Completed Unive rsity of PFIZER VACCINE 00:00:00 [facility] SARS-COV-2 COVID-19 2020-05-01 Completed Unive rsity of PFIZER VACCINE 00:00:00 [facility] SARS-COV-2 COVID-19 2020-05-01 Completed Unive rsity of PFIZER VACCINE 00:00:00 [facility] Pfizer COVID-19 Pfizer COVID-19 2020-05-01 Completed Vaccine Vaccine 00:00:00 SARS-COV-2 COVID-19 2020-04-09 Completed Unive rsity of PFIZER VACCINE 00:00:00 [facility] SARS-COV-2 COVID-19 2020-04-09 Completed Unive rsity of PFIZER VACCINE 00:00:00 [facility] SARS-COV-2 COVID-19 2020-04-09 Completed Unive rsity of PFIZER VACCINE 00:00:00 [facility] SARS-COV-2 COVID-19 2020-04-09 Completed Unive rsity of PFIZER VACCINE 00:00:00 [facility] SARS-COV-2 COVID-19 2020-04-09 Completed Unive rsity of PFIZER VACCINE 00:00:00 [facility] SARS-COV-2 COVID-19 2020-04-09 Completed Unive rsity of PFIZER VACCINE 00:00:00 [facility] SARS-COV-2 COVID-19 2020-04-09 Completed Unive rsity of PFIZER VACCINE 00:00:00 [facility] SARS-COV-2 COVID-19 2020-04-09 Completed Unive rsity of PFIZER VACCINE 00:00:00 [facility] SARS-COV-2 COVID-19 2020-04-09 Completed Unive rsity of PFIZER VACCINE 00:00:00 [facility] SARS-COV-2 COVID-19 2020-04-09 Completed Unive rsity of PFIZER VACCINE 00:00:00 [facility] SARS-COV-2 COVID-19 2020-04-09 Completed Unive rsity of PFIZER VACCINE 00:00:00 [facility] SARS-COV-2 COVID-19 2020-04-09 Completed Unive rsity of PFIZER VACCINE 00:00:00 [facility] SARS-COV-2 COVID-19 2020-04-09 Completed Unive rsity of PFIZER VACCINE 00:00:00 [facility] Pfizer COVID-19 Pfizer COVID-19 2020-04-09 Completed Vaccine Vaccine 00:00:00 Influenza Virus 2019-01-31 Completed Universit y of Vaccine 00:00:00 [facility] Influenza Virus 2019-01-31 Completed Universit y of Vaccine 00:00:00 [facility] Influenza Virus 2019-01-31 Completed Universit y of Vaccine 00:00:00 [facility] Influenza Virus 2019-01-31 Completed Universit y of Vaccine 00:00:00 [facility] Influenza Virus 2019-01-31 Completed Universit y of Vaccine 00:00:00 [facility] Influenza Virus 2019-01-31 Completed Universit y of Vaccine 00:00:00 [facility] Influenza Virus 2019-01-31 Completed Universit y of Vaccine 00:00:00 [facility] Influenza Virus 2019-01-31 Completed Universit y of Vaccine 00:00:00 [facility] Influenza Virus 2019-01-31 Completed Universit y of Vaccine 00:00:00 [facility] Influenza Virus 2019-01-31 Completed Universit y of Vaccine 00:00:00 [facility] Influenza Virus 2019-01-31 Completed Universit y of Vaccine 00:00:00 [facility] Influenza Virus 2019-01-31 Completed Universit y of Vaccine 00:00:00 [facility] Influenza Virus 2019-01-31 Completed Universit y of Vaccine 00:00:00 [facility] Influenza Virus 2019-01-31 Completed Universit y of Vaccine 00:00:00 [facility] Influenza Virus 2019-01-31 Completed Universit y of Vaccine 00:00:00 [facility] Influenza Virus 2019-01-31 Completed Universit y of Vaccine 00:00:00 [facility] Influenza Virus 2019-01-31 Completed Universit y of Vaccine 00:00:00 [facility] Influenza Virus 2019-01-31 Completed Universit y of Vaccine 00:00:00 [facility] Influenza Virus 2019-01-31 Completed Universit y of Vaccine 00:00:00 [facility] Branch Influenza Virus 2019-01-31 Completed Universit y of Vaccine 00:00:00 [facility] Branch Influenza Virus 2019-01-31 Completed Universit y of Vaccine 00:00:00 [facility] Influenza Virus 2019-01-31 Completed Universit y of Vaccine 00:00:00 [facility] Influenza Virus 2019-01-31 Completed Universit y of Vaccine 00:00:00 [place] [facility] Td 2012-06-12 Completed University of 00:00:00 [place] [facility] Td 2012-06-12 Completed University of 00:00:00 [place] [facility] Td 2012-06-12 Completed University of 00:00:00 [place] [facility] Td 2012-06-12 Completed University of 00:00:00 [place] [facility] Td 2012-06-12 Completed University of 00:00:00 [place] [facility] Td 2012-06-12 Completed University of 00:00:00 [place] [facility] Td 2012-06-12 Completed University of 00:00:00 [place] [facility] Td 2012-06-12 Completed University of 00:00:00 [place] [facility] Td 2012-06-12 Completed University of 00:00:00 [place] [facility] Td 2012-06-12 Completed University of 00:00:00 [place] [facility] Td 2012-06-12 Completed University of 00:00:00 [place] [facility] Td 2012-06-12 Completed University of 00:00:00 [place] [facility] Td 2012-06-12 Completed University of 00:00:00 [place] [facility] Td 2012-06-12 Completed University of 00:00:00 [place] [facility] Td 2012-06-12 Completed University of 00:00:00 [place] [facility] Td 2012-06-12 Completed University of 00:00:00 [place] [facility] Td 2012-06-12 Completed University of 00:00:00 [place] [facility] Td 2012-06-12 Completed University of 00:00:00 [place] [facility] Td 2012-06-12 Completed University of 00:00:00 [place] [facility] Td 2012-06-12 Completed University of 00:00:00 [place] [facility] Td 2012-06-12 Completed University of 00:00:00 [facility] Branch TD, NOS 2012-06-12 Completed University of 00:00:00 [place] [facility] TD, NOS 2012-06-12 Completed University of 00:00:00 [place] [facility] Td 2012-06-12 Completed University of 00:00:00 [place] [facility] TD, NOS 2012-06-12 Completed University of 00:00:00 [place] [facility] TD, NOS 2012-06-12 Completed University of 00:00:00 [facility] Vital Signs Vital Name Observation Time Observation Value Comments Source Systolic blood 2022-04-09 16:19:00 135 mm[Hg] Univer sity of pressure [place] [facility] Diastolic blood 2022-04-09 16:19:00 86 mm[Hg] Unive rsity of pressure [place] [facility] Heart rate 2022-04-09 16:17:00 97 /min Universi ty of [place] [facility] Body temperature 2022-04-09 16:17:00 36.78 [place] Univ ersity of [place] [facility] Respiratory rate 2022-04-09 16:17:00 20 /min Univ ersity of [place] [facility] Body height 2022-04-09 16:17:00 188 cm Universi ty of [place] [facility] Body weight 2022-04-09 16:17:00 108.41 kg Universi ty of [place] [facility] BMI 2022-04-09 16:17:00 30.69 kg/m2 Universi ty of [place] [facility] Oxygen saturation in 2022-04-09 16:17:00 98 /min University of Arterial blood by [facility] Pulse oximetry Branch Systolic blood 2022-01-24 16:52:00 113 mm[Hg] Univer sity of pressure [place] [facility] Diastolic blood 2022-01-24 16:52:00 76 mm[Hg] Unive rsity of pressure [place] [facility] Heart rate 2022-01-24 16:52:00 87 /min Universi ty of [place] [facility] Body temperature 2022-01-24 16:52:00 36.61 [place] Univ ersity of [facility] Branch Oxygen saturation in 2022-01-24 16:52:00 97 /min University of Arterial blood by [facility] Pulse oximetry Branch Respiratory rate 2022-01-24 09:58:00 18 /min Univ ersity of [place] [facility] Body height 2022-01-23 14:26:00 188 cm Universi ty of [place] [facility] Body weight 2022-01-23 14:26:00 98.9 kg [facility] BMI 2022-01-23 14:26:00 27.99 kg/m2 [facility] BP Diastolic 2021-10-09 00:00:00 78 mm[Hg] [facility] Height 2021-10-09 00:00:00 74 [in_i] [facility] BMI (Body Mass 2021-10-09 00:00:00 29.5 kg/m2 [facility] BP Systolic 2021-10-09 00:00:00 130 mm[Hg] [facility] Body Weight 2021-10-09 00:00:00 230 [lb_av] [facility] BP Diastolic 2021-09-11 00:00:00 72 mm[Hg] [facility] Height 2021-09-11 00:00:00 74 [in_i] [facility] BMI (Body Mass 2021-09-11 00:00:00 29.4 kg/m2 [facility] BP Systolic 2021-09-11 00:00:00 110 mm[Hg] [facility] Body Weight 2021-09-11 00:00:00 229 [lb_av] [facility] BP Diastolic 2021-08-11 00:00:00 66 mm[Hg] [facility] Height 2021-08-11 00:00:00 74 [in_i] [facility] BMI (Body Mass 2021-08-11 00:00:00 29.5 kg/m2 [facility] BP Systolic 2021-08-11 00:00:00 122 mm[Hg] [facility] Body Weight 2021-08-11 00:00:00 229.8 [lb_av] [facility] Systolic blood 2021-08-09 10:42:00 119 mm[Hg] Univer sity of pressure [facility] Diastolic blood 2021-08-09 10:42:00 68 mm[Hg] Unive rsity of [facility] Heart rate 2021-08-09 10:42:00 84 /min [facility] Body temperature 2021-08-09 10:42:[address] [place] [address] 2021-08-09 10:42:00 16 /min [facility] Body weight 2021-08-09 10:42:00 98.884 kg [facility] [place] [facility] BMI 2021-08-09 10:42:00 27.99 kg/m2 [facility] [place] [facility] Oxygen saturation in 2021-08-09 10:42:00 99 /min University of Arterial blood by [place] [employer] elian Pulse oximetry Branch Systolic blood 2021-07-13 20:29:00 122 mm[Hg] Univer sity of pressure [place] [facility] Diastolic blood 2021-07-13 20:29:00 68 mm[Hg] Unive rsity of pressure [place] [facility] Heart rate 2021-07-13 20:29:00 70 /min Universi ty of [place] [facility] Body temperature 2021-07-13 20:29:00 36.61 [place] Univ ersity of [place] [facility] Respiratory rate 2021-07-13 20:29:00 18 /min Univ ersity of [place] [facility] Oxygen saturation in 2021-07-13 20:29:00 97 /min University of Arterial blood by [facility] Pulse oximetry Branch Body weight 2021-07-11 13:00:00 101.5 kg [facility] [place] [facility] BMI 2021-07-11 13:00:00 28.73 kg/m2 [facility] [place] [facility] Body height 2021-07-09 20:31:00 188 cm [facility] [place] [facility] Systolic blood 2020-06-13 20:20:00 135 mm[Hg] Univer sity of pressure [place] [facility] Diastolic blood 2020-06-13 20:20:00 89 mm[Hg] Unive rsity of pressure [place] [facility] Heart rate 2020-06-13 20:20:00 104 /min [facility] [place] [facility] Body temperature 2020-06-13 20:20:00 37 [place] Univ ersity of [place] [facility] Respiratory rate 2020-06-13 20:20:00 18 /min Univ ersity of [place] [facility] Body weight 2020-06-13 20:20:00 106.142 kg [facility] [place] [facility] BMI 2020-06-13 20:20:00 30.04 kg/m2 [facility] [place] [facility] Oxygen saturation in 2020-06-13 20:20:00 98 /min University of Arterial blood by [facility] Pulse oximetry Branch Systolic blood 2019-07-25 19:16:00 122 mm[Hg] Univer sity of pressure [place] [facility] Diastolic blood 2019-07-25 19:16:00 81 mm[Hg] Unive rsity of pressure [place] [facility] Heart rate 2019-07-25 19:16:00 122 /min [facility]i ty [facility] [place] [facility] Body temperature 2019-07-25 19:16:00 37.56 [place] Univ ers[facility] of [place] [facility] Respiratory rate 2019-07-25 19:16:00 16 /min Univ ersity of [place] [facility] Body height 2019-07-25 19:16:00 188 cm [facility]i [facility] [place] [facility] Body weight 2019-07-25 19:16:00 101.651 kg [facility] [place] [facility] BMI 2019-07-25 19:16:00 28.77 kg/m2 [facility] [place] [facility] Oxygen saturation in 2019-07-25 19:16:00 96 /min University of Arterial blood by [place] [employer] elian Pulse oximetry Branch Systolic blood 2019-05-27 18:16:00 105 mm[Hg] Univer sity of pressure [place] [facility] Diastolic blood 2019-05-27 18:16:00 72 mm[Hg] Unive rsity of pressure [facility] [place] [facility] Heart rate 2019-05-27 18:16:00 110 /min [facility]i ty [facility] [place] [facility] Body temperature 2019-05-27 18:16:00 36.83 [place] Univ ers[facility] of [place] [facility] Respiratory rate 2019-05-27 18:16:00 26 /min Univ ersity of [place] [facility] Body height 2019-05-27 18:16:00 188 cm [facility]i ty [facility] [place] [facility] Body weight 2019-05-27 18:16:00 108.138 kg [facility] [place] [facility] BMI 2019-05-27 18:16:00 30.61 kg/m2 [facility]i ty [facility] [place] [facility] Oxygen saturation in 2019-05-27 18:16:00 98 /min [facility] of Arterial blood by [place] [employer] elian Pulse oximetry Branch Systolic blood 2018-11-22 01:11:00 132 mm[Hg] Univer sity of pressure [place] [facility] Diastolic blood 2018-11-22 01:11:00 78 mm[Hg] Unive rsity of pressure [place] [facility] Heart rate 2018-11-22 01:11:00 90 /min [facility] [place] [facility] Body temperature 2018-11-22 01:11:00 36.72 Coral [facility] ersity of [facility] Respiratory rate 2018-11-22 01:11:00 18 /min Univ ersity of [facility] Body height 2018-11-22 01:11:00 188 cm [facility] [place] [facility] Body weight 2018-11-22 01:11:00 112.946 kg Universi ty of [facility] BMI 2018-11-22 01:11:00 31.97 kg/m2 Universi ty of [facility] Oxygen saturation in 2018-11-22 01:11:00 99 /min [facility] of Arterial blood by [facility] Pulse oximetry Branch Systolic blood 2018-11-22 01:11:00 132 mm[Hg] Univer sity of pressure [facility] Diastolic blood 2018-11-22 01:11:00 78 mm[Hg] Unive rsity of pressure [facility] Heart rate 2018-11-22 01:11:00 90 /min Universi ty of [facility] Body temperature 2018-11-22 01:11:00 36.72 Coral [facility] ersity of [facility] Respiratory rate 2018-11-22 01:11:00 18 /min [facility] ersity of [facility] Body height 2018-11-22 01:11:00 188 cm Universi ty of [facility] Body weight 2018-11-22 01:11:00 112.946 kg Universi ty of [facility] BMI 2018-11-22 01:11:00 31.97 kg/m2 Universi ty of [facility] Oxygen saturation in 2018-11-22 01:11:00 99 /min [facility] of Arterial blood by [facility] Pulse oximetry Branch Procedures Procedure Date / Time Performing Clinician Source Performed ASSIGNMENT OF BENEFITS 2022-04-09 15:47:22 Doctor Unassigned, No [facility] Name [facility] POCT SARS-COV-2 ANTIGEN 2022-04-09 00:00:00 Val Victor [facility] (BINAX NOW) [facility] POCT GLUCOSE (AUTOMATED) 2022-01-24 18:59:00 Ethan Petty [facility] POCT GLUCOSE (AUTOMATED) 2022-01-24 13:01:00 Ethan Petty [facility] BASIC METABOLIC PANEL 2022-01-24 08:28:00 Bijal Huertas [facility] (NA, K, CL, CO2, GLUCOSE, Medica l Branch BUN, CREATININE, CA) LIPID PANEL ([id number])(TOTAL 2022-01-24 08:28:00 Kiya [facility] CHOLESTEROL, [facility] TRIGLYCERIDES, HDL) CBC WITH DIFF 2022-01-24 08:28:00 Kiya [facility] LOW-DENSITY LIPOPROTEIN, 2022-01-24 08:28:00 Kiya [facility] DIRECT [facility] POCT GLUCOSE (AUTOMATED) 2022-01-24 01:42:00 Ethan Petty Uni versity [facility] POCT GLUCOSE (AUTOMATED) 2022-01-23 23:11:00 Pancho Jean Baptiste Uni versity [facility] LIPASE 2022-01-23 22:47:00 [facility] LIPID PANEL ([id number])(TOTAL 2022-01-23 22:47:00 [facility] CHOLESTEROL, [facility] TRIGLYCERIDES, HDL) LOW-DENSITY LIPOPROTEIN, 2022-01-23 22:47:00 [facility] POCT GLUCOSE (AUTOMATED) 2022-01-23 14:26:00 Pancho Jean Baptiste Uni versity [facility] POTASSIUM SERUM 2022-01-23 12:03:00 Mary Jane Soares [facility] TRIGLYCERIDES 2022-01-23 12:03:00 Pernell Ross [facility] POCT GLUCOSE (AUTOMATED) 2022-01-23 11:41:00 Pancho Jean Baptiste Uni versity of [facility] POCT GLUCOSE (AUTOMATED) 2022-01-23 10:49:00 Pancho Jean Baptiste Uni versity of [facility] POCT GLUCOSE (AUTOMATED) 2022-01-23 09:49:00 Pancho Jean Baptiste Uni versity of [facility] POCT GLUCOSE (AUTOMATED) 2022-01-23 09:04:00 Pancho Jean Baptiste [facility] [place] [facility] POCT GLUCOSE (AUTOMATED) 2022-01-23 07:48:00 Pancho Jean Baptiste Uni versity of [place] [facility] POCT GLUCOSE (AUTOMATED) 2022-01-23 05:54:00 Pancho Jean Baptiste Uni versity of [facility] Branch POTASSIUM SERUM 2022-01-23 05:09:00 [facility] TRIGLYCERIDES 2022-01-23 05:09:00 Pernell Ross [facility] POCT GLUCOSE (AUTOMATED) 2022-01-23 05:07:00 Pancho Jean Baptiste Uni versity of [place] [facility] POCT GLUCOSE (AUTOMATED) 2022-01-23 03:55:00 Pancho Jean Baptiste Uni versity [facility] [place] [facility] POCT GLUCOSE (AUTOMATED) 2022-01-23 02:53:00 Pancho Jean Baptiste Uni versity [facility] [place] [facility] POCT GLUCOSE (AUTOMATED) 2022-01-23 01:55:00 Pancho Jean Baptiste Uni versity [facility] [place] [facility] POCT GLUCOSE (AUTOMATED) 2022-01-23 00:37:00 Pancho Jean Baptiste [facility] [place] [facility] POCT GLUCOSE (AUTOMATED) 2022-01-22 22:58:00 Pancho Jean Baptiste Uni versity of [place] [facility] POCT GLUCOSE (AUTOMATED) 2022-01-22 22:17:00 Pancho Jean Baptiste Uni versity [facility] [place] [facility] POCT GLUCOSE (AUTOMATED) 2022-01-22 20:43:00 Pancho Jean Baptiste Uni versity of [place] [facility] POCT GLUCOSE (AUTOMATED) 2022-01-22 20:02:00 Pancho Jean Baptiste Uni versity of [facility] Branch POTASSIUM SERUM 2022-01-22 18:52:00 [facility] TRIGLY[facility]ES 2022-01-22 18:52:00 Vandana Pernell [facility] POCT GLUCOSE (AUTOMATED) 2022-01-22 18:51:00 Pancho Jean Baptiste Uni versity of [facility] Branch POCT GLUCOSE (AUTOMATED) 2022-01-22 17:07:00 Pancho Jean Baptiste [facility] [place] [facility] POCT GLUCOSE (AUTOMATED) 2022-01-22 16:04:00 Pancho Jean Baptiste Uni versity of [facility] POCT GLUCOSE (AUTOMATED) 2022-01-22 15:03:00 Pancho Jean Baptiste Uni versity of [facility] POCT GLUCOSE (AUTOMATED) 2022-01-22 14:21:00 Pancho Jean Baptiste Uni versity of [facility] POCT GLUCOSE (AUTOMATED) 2022-01-22 13:33:00 Pancho Jean Baptiste Uni versity of [facility] POTASSIUM SERUM 2022-01-22 12:53:00 Laurie Soareshemant [facility] TRIGLYCERIDES 2022-01-22 12:53:00 Pernell Ross [facility] POCT GLUCOSE (AUTOMATED) 2022-01-22 12:53:00 Pancho Jean Baptiste Uni versity of [facility] POCT GLUCOSE (AUTOMATED) 2022-01-22 11:22:00 Pancho Jean Baptiste Uni versity of [facility] POCT GLUCOSE (AUTOMATED) 2022-01-22 10:24:00 Pancho Jean Baptiste Uni versity of [facility] POCT GLUCOSE (AUTOMATED) 2022-01-22 09:57:00 Pancho Jean Baptiste Uni versity of [facility] Branch POCT GLUCOSE (AUTOMATED) 2022-01-22 09:54:00 Pancho Jean Baptiste Uni versity of [facility] POCT GLUCOSE (AUTOMATED) 2022-01-22 08:55:00 Pancho Jean Baptiste Uni versity of [place] [facility] POCT GLUCOSE (AUTOMATED) 2022-01-22 07:54:00 Pancho Jean Baptiste Uni versity of [facility] Branch POCT GLUCOSE (AUTOMATED) 2022-01-22 06:49:00 Pancho Jean Baptiste Uni versity of [facility] Branch POCT GLUCOSE (AUTOMATED) 2022-01-22 05:49:00 Pancho Jean Baptiste Uni versity of [place] [facility] TRIGLYCERIDES 2022-01-22 04:37:00 Ariel Da Silva [facility] BASIC METABOLIC PANEL 2022-01-22 04:37:00 Pernell Ross [facility] (NA, K, CL, CO2, GLUCOSE, Medica l Branch BUN, CREATININE, CA) POCT GLUCOSE (AUTOMATED) 2022-01-22 04:35:00 Pancho Jean Baptiste Uni versity of [facility] POCT GLUCOSE (AUTOMATED) 2022-01-22 03:52:00 Pancho Jean Baptiste Uni versity of [facility] POCT GLUCOSE (AUTOMATED) 2022-01-22 02:55:00 Pancho Jean Baptiste Uni versity of [facility] POCT GLUCOSE (AUTOMATED) 2022-01-22 02:14:00 Pancho Jean Baptiste Uni versity of [facility] POCT GLUCOSE (AUTOMATED) 2022-01-22 01:54:00 Pancho Jean Baptiste Uni versity of [facility] POTASSIUM SERUM 2022-01-22 00:50:00 [facility] POCT GLUCOSE (AUTOMATED) 2022-01-22 00:49:00 Pancho Jean Baptiste Uni versity of [facility] POCT GLUCOSE (AUTOMATED) 2022-01-21 23:37:00 Pancho Jean Baptiste Uni versity of [facility] POCT GLUCOSE (AUTOMATED) 2022-01-21 22:53:00 Pancho Jean Baptiste Uni versity of [facility] POCT GLUCOSE (AUTOMATED) 2022-01-21 21:16:00 Pancho Jean Baptiste Uni versity of [facility] TRIGLYCERIDES 2022-01-21 20:15:00 [facility] POCT GLUCOSE (AUTOMATED) 2022-01-21 20:12:00 Pancho Jean Baptiste Uni versity of [facility] POCT GLUCOSE (AUTOMATED) 2022-01-21 18:52:00 Pancoh Jean Baptiste Uni versity of [facility] BASIC METABOLIC PANEL 2022-01-21 17:44:00 Gio [facility] (NA, K, CL, CO2, GLUCOSE, Medica l Branch BUN, CREATININE, CA) LIPID PANEL ([id number])(TOTAL 2022-01-21 17:44:00 Pernell Ross [facility] CHOLESTEROL, Medical Branch TRIGLYCERIDES, HDL) LOW-DENSITY LIPOPROTEIN, 2022-01-21 17:44:00 Pernell Ross Uni versity of [facility] POCT GLUCOSE (AUTOMATED) 2022-01-21 17:10:00 Pancho Jean Baptiste Uni versity of [facility] POCT GLUCOSE (AUTOMATED) 2022-01-21 14:57:00 Pancho Jean Baptiste Uni versity of [facility] POCT GLUCOSE (AUTOMATED) 2022-01-21 14:09:00 Pancho Jean Baptiste Uni versity of [facility] BASIC METABOLIC PANEL 2022-01-21 14:07:00 Andrea Powers [facility] (NA, K, CL, CO2, GLUCOSE, Medica l Branch BUN, CREATININE, CA) LIPID PANEL ([id number])(TOTAL 2022-01-21 14:07:00 [facility], [facility] Branch TRIGLYCERIDES, HDL) LOW-DENSITY LIPOPROTEIN, 2022-01-21 14:07:00 Pernell Ross Uni versity of [facility] POCT GLUCOSE (AUTOMATED) 2022-01-21 13:01:00 Pancho Jean Baptiste Uni versity of [facility] POCT GLUCOSE (AUTOMATED) 2022-01-21 12:17:00 Pancho Jean Baptiste Uni versity of [facility] POCT GLUCOSE (AUTOMATED) 2022-01-21 11:39:00 Pancho Jean Baptiste Uni versity of [facility] POCT GLUCOSE (AUTOMATED) 2022-01-21 10:34:00 Pancho Jean Baptiste Uni versity of [facility] POCT GLUCOSE (AUTOMATED) 2022-01-21 09:25:00 Pancho Jean Baptiste Uni versity of [facility] Branch MAGNESIUM 2022-01-21 07:51:00 Pernell Ross [facility] BASIC METABOLIC PANEL 2022-01-21 07:51:00 Pernell Ross [facility] (NA, K, CL, CO2, GLUCOSE, Medica l Branch BUN, CREATININE, CA) LIPID PANEL ([id number])(TOTAL 2022-01-21 07:51:00 Pernell Ross [facility] CHOLESTEROL, [facility] TRIGLYCERIDES, HDL) CBC WITH DIFF 2022-01-21 07:51:00 Pernell Ross [facility] GLYCOSYLATED HEMOGLOBIN 2022-01-21 07:51:00 Andrea Powers [facility] (A1C) [facility] LOW-DENSITY LIPOPROTEIN, 2022-01-21 07:51:00 Pernell Ross [facility] DIRECT [facility] POCT GLUCOSE (AUTOMATED) 2022-01-21 07:33:00 Pancho Jean Baptiste Uni versity [facility] POCT GLUCOSE (AUTOMATED) 2022-01-21 06:27:00 Pancho Jean Baptiste Uni versity [facility] POCT GLUCOSE (AUTOMATED) 2022-01-21 05:28:00 Pancho Jean Baptiste Uni versity [facility] POCT GLUCOSE (AUTOMATED) 2022-01-21 04:25:00 Pancho Jean Baptiste Uni versity [facility] POCT GLUCOSE (AUTOMATED) 2022-01-21 03:10:00 Pancho Jean Baptiste Uni versity [facility] MAGNESIUM 2022-01-21 02:13:00 [facility] BASIC METABOLIC PANEL 2022-01-21 02:13:00 [facility] (NA, K, CL, CO2, GLUCOSE, Medica l Branch BUN, CREATININE, CA) POCT GLUCOSE (AUTOMATED) 2022-01-21 02:09:00 Pancho Jean Baptiste Uni versity [facility] MRSA / MSSA SCREEN BY 2022-01-21 01:07:00 Pernell Ross [facility] PCR, NARES [facility] POCT GLUCOSE (AUTOMATED) 2022-01-21 01:02:00 Pancho Jean Baptiste Uni versity of [facility] POCT GLUCOSE (AUTOMATED) 2022-01-20 23:46:00 Pancho Jean Baptiste Uni versity [facility] POCT GLUCOSE (AUTOMATED) 2022-01-20 22:31:00 Pancho Jean Baptiste Uni versity [facility] LIPASE 2022-01-20 21:08:00 Samuel, Antonio-Ritesh [facility] Medical Branch BASIC METABOLIC PANEL 2022-01-20 21:08:00 Aysah Baker [facility] (NA, K, CL, CO2, GLUCOSE, Medica l Branch BUN, CREATININE, CA) LIPID PANEL ([id number])(TOTAL 2022-01-20 21:08:00 Aysha Baker Un [facility] CHOLESTEROL, [facility] TRIGLYCERIDES, HDL) LOW-DENSITY LIPOPROTEIN, 2022-01-20 21:08:00 Aysha Baker [facility] POCT GLUCOSE (AUTOMATED) 2022-01-20 15:53:00 Pancho Jean Baptiste [facility] POCT GLUCOSE (AUTOMATED) 2022-01-20 14:42:00 Pancho Jean Baptiste [facility] POCT GLUCOSE (AUTOMATED) 2022-01-20 13:27:00 Pancho Jean Baptiste [facility] POCT GLUCOSE (AUTOMATED) 2022-01-20 11:01:00 Cristofer Hinson [facility] CT ABDOMEN PELVIS W 2022-01-20 07:07:13 Tiffanie Call [facility] CONTRAST [facility] URINALYSIS 2022-01-20 06:47:00 Tiffanie Call [facility] LIPASE 2022-01-20 06:37:00 Tiffanie Call [facility] COMP. METABOLIC PANEL 2022-01-20 06:37:00 Tiffanie Call [facility] ([id number]) Medical Branch LIPID PANEL ([id number])(TOTAL 2022-01-20 06:37:00 [facility] CHOLE[facility], [facility] TRIGLYCERIDES, HDL) CBC WITH DIFF 2022-01-20 06:37:00 Tiffanie Call [facility] LOW-DENSITY LIPOPROTEIN, 2022-01-20 06:37:00 Tiffanie Call [facility] CONSENT/REFUSAL FOR 2022-01-20 05:51:34 Doctor Unassigned, No Un [facility] DIAGNOSIS AND TREATMENT Name [facility] AR RESUP NPTERF WND BODY 2021-08-09 11:31:17 Escobar Macahdo [facility] 2.6-7.5 CM [facility] XR FOOT 3+ VW LEFT 2021-08-09 10:59:33 Escobar Machado [facility] CONSENT/REFUSAL FOR 2021-08-09 10:40:33 Doctor Unassigned, No Un [facility] DIAGNOSIS AND TREATMENT Name [facility] POCT GLUCOSE (AUTOMATED) 2021-07-13 22:01:00 Cody Dent Uni versity of [facility] POCT GLUCOSE (AUTOMATED) 2021-07-13 17:04:00 Cody Dent Uni versity of [facility] POCT GLUCOSE (AUTOMATED) 2021-07-13 13:27:00 Cody Dent Uni versity [facility] PHOSPHORUS 2021-07-13 09:27:00 [facility] LIPASE 2021-07-13 09:27:00 [facility] MAGNESIUM 2021-07-13 09:27:00 [facility] COMP. METABOLIC PANEL 2021-07-13 09:27:00 Gissell Dodson [facility] ([id number]) [facility] LIPID PANEL ([id number])(TOTAL 2021-07-13 09:27:00 Gissell Dodson [facility] CHOLESTEROL, [facility] TRIGLYCERIDES, HDL) CBC WITH DIFF 2021-07-13 09:27:00 [facility] LOW-DENSITY LIPOPROTEIN, 2021-07-13 09:27:00 Gissell Dodson [facility] DIRECT [facility] POCT GLUCOSE (AUTOMATED) 2021-07-13 09:20:00 Cody Dent Uni versity of [facility] POCT GLUCOSE (AUTOMATED) 2021-07-13 05:43:00 Cody Dent Uni versity of [facility] POCT GLUCOSE (AUTOMATED) 2021-07-13 01:40:00 Cody Dent Uni versity of [facility] POCT GLUCOSE (AUTOMATED) 2021-07-12 22:30:00 Cody Dent Uni versity of [facility] POCT GLUCOSE (AUTOMATED) 2021-07-12 17:50:00 Yudi Keenan iversity of [facility] Medical Branch POCT GLUCOSE (AUTOMATED) 2021-07-12 15:13:00 Yudi Keenan iversity of [facility] [place] LIPID PANEL ([id number])(TOTAL 2021-07-12 13:37:00 Ainsley Parkinson iversity of [place] CHOLESTEROL, Medical Branch TRIGLYCERIDES, HDL) LOW-DENSITY LIPOPROTEIN, 2021-07-12 13:37:00 Ainsley Parkinson Uni versity of [place] DIRECT Medical Branch POCT GLUCOSE (AUTOMATED) 2021-07-12 13:29:00 Yudi Keenan iversity of [facility] Medical Branch POCT GLUCOSE (AUTOMATED) 2021-07-12 09:25:00 Yudi Keenan iversity of [facility] Medical Branch POCT GLUCOSE (AUTOMATED) 2021-07-12 05:09:00 Yudi Keenan iversity of [facility] Medical Branch POCT GLUCOSE (AUTOMATED) 2021-07-12 00:42:00 Yudi Keenan iversity of [facility] Medical Branch POCT GLUCOSE (AUTOMATED) 2021-07-11 23:06:00 Yudi Keenan iversity of [facility] Medical Branch POCT GLUCOSE (AUTOMATED) 2021-07-11 22:13:00 Yudi Keenan iversity of [facility] Medical Branch POCT GLUCOSE (AUTOMATED) 2021-07-11 21:03:00 Yudi Keenan iversity of [facility] Medical Branch POCT GLUCOSE (AUTOMATED) 2021-07-11 20:06:00 Yudi Keenan iversity of [facility] Medical Branch LIPID PANEL ([id number])(TOTAL 2021-07-11 19:26:00 Luis A Jordan U niverslucila of [place] CHOLESTEROL, Medical Branch TRIGLYCERIDES, HDL) LOW-DENSITY LIPOPROTEIN, 2021-07-11 19:26:00 Luis A Jordan iversity of [place] DIRECT [facility] Branch POCT GLUCOSE (AUTOMATED) 2021-07-11 19:00:00 Yudi Keenan iversity of [facility] POCT GLUCOSE (AUTOMATED) 2021-07-11 17:56:00 Yudi Keenan Un iversity of [facility] POCT GLUCOSE (AUTOMATED) 2021-07-11 17:01:00 Yudi Keenan Un iversity of [facility] POCT GLUCOSE (AUTOMATED) 2021-07-11 16:03:00 Yudi Keenan Un iversity of [facility] POCT GLUCOSE (AUTOMATED) 2021-07-11 15:01:00 Yudi Keenan Un iversity of [facility] POCT GLUCOSE (AUTOMATED) 2021-07-11 14:11:00 Yudi Keenan Un iversity of [facility] POCT GLUCOSE (AUTOMATED) 2021-07-11 13:23:00 Yudi Keenan Un iversity of [facility] LACTIC ACID WHOLE BLOOD 2021-07-11 13:23:00 Al Rodriges [facility] POCT GLUCOSE (AUTOMATED) 2021-07-11 13:20:00 Yudi Keenan Un iversity of [facility] POCT GLUCOSE (AUTOMATED) 2021-07-11 12:03:00 Yudi Keenan Un iversity of [facility] POCT GLUCOSE (AUTOMATED) 2021-07-11 11:00:00 Yudi Keenan Un iversity of [facility] MAGNESIUM 2021-07-11 10:18:00 [facility] 2021-07-11 10:18:00 [facility] ([id number] (ALB,T.PRO,BILI Medical Branch T,BU/BC,ALT,AST,ALK PHOS) BASIC METABOLIC PANEL 2021-07-11 10:18:00 Ainsley Parkinson [facility] (NA, K, CL, CO2, GLUCOSE, Medica l Branch BUN, CREATININE, CA) LIPID PANEL ([id number])(TOTAL 2021-07-11 10:18:00 [facility] CHOLESTEROL, Medical Branch TRIGLYCERIDES, HDL) CBC WITH DIFF 2021-07-11 10:18:00 [facility] LOW-DENSITY LIPOPROTEIN, 2021-07-11 10:18:00 Ainsley Parkinson [facility] POCT GLUCOSE (AUTOMATED) 2021-07-11 10:07:00 [facility]OMATED) 2021-07-11 09:10:00 [facility]) 2021-07-11 07:19:00 [facility] PO[facility] (AUTOMATED) 2021-07-11 06:26:00 [facility] PO[facility]SE (AUTOMATED) 2021-07-11 05:21:00 [facility] BLOOD [facility] SCREEN 2021-07-11 04:15:00 Ainsley Parkinson [facility] POCT GLUCOSE (AUTOMATED) 2021-07-11 03:59:00 [facility] PO[facility]SE (AUTOMATED) 2021-07-11 02:56:00 [facility] MAGNESIUM 2021-07-11 02:48:00 Ainsley Parkinson [facility] HEPATIC FUNCTION PANEL 2021-07-11 02:48:00 Ainsley Parkinson [facility] ([id number]) (ALB,T.PRO,BILI Medical Branch T,BU/BC,ALT,AST,ALK PHOS) BASIC METABOLIC PANEL 2021-07-11 02:48:00 Ainsley Parkinson [facility] (NA, K, CL, CO2, GLUCOSE, Medica l Branch BUN, CREATININE, CA) LIPID PANEL ([id number])(TOTAL 2021-07-11 02:48:00 Ainsley Parkinson [facility] CHOLESTEROL, Medical Branch TRIGLYCERIDES, HDL) CBC WITH DIFF 2021-07-11 02:48:00 Iggy [facility] LOW-DENSITY LIPOPROTEIN, 2021-07-11 02:48:00 Ainsley Parkinson [facility] DIRECT [facility] POCT GLUCOSE (AUTOMATED) 2021-07-10 21:33:00 Evie Beaulieu [facility] POCT GLUCOSE (AUTOMATED) 2021-07-10 16:51:00 Evie Beaulieu [facility] CT ABDOMEN PELVIS W 2021-07-10 15:39:14 [facility] Branch TRIGLYCERIDES 2021-07-10 09:28:00 Esteban [facility] MAGNESIUM 2021-07-10 09:28:[facility] 2021-07-10 09:28:00 [facility] ([id number]) (ALB,T.PRO,BILI [facility] T,BU/BC,ALT,AST,ALK PHOS) BASIC METABOLIC PANEL 2021-07-10 09:28:00 [facility] (NA, K, CL, CO2, GLUCOSE, Medica l Branch BUN, CREATININE, CA) CBC WITH DIFF 2021-07-10 09:28:00 [facility] PO[facility] (AUTOMATED) 2021-07-10 01:23:00 Evie Beaulieu [facility] POCT GLUCOSE (AUTOMATED) 2021-07-09 22:43:00 Evie Beaulieu [facility] COVID-19 (ID NOW RAPID 2021-07-09 16:57:00 Wai Ibrahim [facility] TESTING) Medical Branch LAB ONLY COVID 2021-07-09 16:57:00 Wai Ibrahim [facility] INTERPRETATION [facility] US GALL BLADDER 2021-07-09 16:17:00 Wai Ibrahim [facility] POCT GLUCOSE (AUTOMATED) 2021-07-09 15:19:00 Wai Ibrahim [facility] URINALYSIS 2021-07-09 15:14:00 Wai Ibrahim [facility] CT ABDOMEN PELVIS WO 2021-07-09 13:58:00 [place] [facility] Branch PHOSPHORUS 2021-07-09 13:20:00 [facility] 2021-07-09 13:20:[address] [facility] MAGNESIUM 2021-07-09 13:20:00 Anamaria Hayes [facility] COMP. METABOLIC PANEL 2021-07-09 13:20:00 [place] [facility] ([id number]) [facility] [place] LIPID PANEL ([id number])(TOTAL 2021-07-09 13:20:00 Anamaria Hayes [facility] CHOLESTEROL, [facility] Branch TRIGLYCERIDES, HDL) CBC WITH DIFF 2021-07-09 13:20:[address] [facility] GLYCOSYLATED HEMOGLOBIN 2021-07-09 13:20:00 Freddy [facility] (A1C) [facility] LOW-DENSITY LIPOPROTEIN, 2021-07-09 13:20:00 Anamaria Hayes [facility] DIRECT [facility] CBC WITH DIFFERENTIAL 2019-07-25 20:12:00 Heidi Diaz [facility] POCT FLU A AND B 2019-05-27 00:00:00 Carline Esquivel [facility] (MOLECULAR) [facility] ASSIGNMENT OF BENEFITS 2018-11-22 01:00:08 Doctor Unassigned, No [facility] Name [facility] Branch Encounters Start End Encounter Admission Attending Care Care Encounter Source Date/Time Date/Time Type Type Clinicians Facility Department ID 2022-04-13 2022-04-13 [id number] Univers 00:00:00 00:00:00 Secure [facility] GetMaid [facility] 350.1.13.10 [facility] 4.2.7.2.686 [facility] [id number] [facility] PRIMARY & 370 Branch SPECIALTY CARE 2022-04-09 2022-04-09 Outpatient R MARGO [facility] [id number] Univers 10:00:00 11:06:[address] [facility] 2022-04-09 2022-04-09 Urgent Nhan Evans [facility] [[email or web address]] 1.2.840.1 [id number] Univers 10:00:00 11:06:37 Care Unknown, Attending HEALTH 350.1.13.10 ity of [place] 4.2.7.2.686 [facility] [id number] [facility] PRIMARY & 370 Branch SPECIALTY CARE 2022-04-09 2022-04-09 Orders Doctor MESSI 1.2.840.114 [id number] Univers 00:00:00 00:00:00 Only Unassigned, MICHAEL 350.1.13.10 ity of [facility] 4.2.7.2.686 Kameron [phone] [facility] 009 Branch 2022-04-07 2022-04-07 Outpatient Piazza_D VFP VFP [id number] 6-20 Village 00:00:00 00:00:00 [id number] Family Practic e 2022-04-07 2022-04-07 Outpatient Piazza_D VFP VFP [id number] 6-20 Village 00:00:00 00:00:00 [id number] Family Practic e 2022-04-07 2022-04-07 Outpatient Piazza_D VFP VFP [id number] 6-20 Village 00:00:00 00:00:00 [id number] Family Practic e 2022-04-02 2022-04-02 Outpatient R KIA [facility] [id number] Univers 16:20:00 16:20:00 GUERLINE ity of [facility] 2022-01-26 2022-01-26 Transition JASPAL Damico 1.2.840.114 [id number] Univers 00:00:00 00:00:00 of Care [place] FERNANDEZ 350.1.13.10 i ty of [place] 4.2.7.2.686 [facility] [id number] [facility] 403 Branch 2022-01-20 2022-01-24 Inpatient X ETHAN PETTY [facility] [id number] Univers 00:54:00 15:15:00 ETHAN PETTY i ty of [facility] 2022-01-20 2022-01-24 [facility] Tiffanie Call 1.2.840. 114 [id number] Univers 00:54:00 15:15:00 Encounter Cristofer Hinson MICHAEL 350.1.13. 10 [facility] 4.2.7.2.686 [place] Ethan Petty [id number] Renato Jimenez Uvaldo Roula 096 Br anch 2021-10-27 2021-10-27 Outpatient Piazza_D VFP VFP [id number] 6-20 Village 00:00:00 00:00:00 [id number] Family Practic e 2021-10-09 2021-10-09 Outpatient Piazza_D VFP VFP [id number] 6-20 Village 02:19:00 02:19:00 [id number] Family Practic e 2021-10-09 2021-10-09 Jose VFP [place] - [id number] V illage 00:00:00 00:00:00 Roneywitaina [facility] DO: 7111 Medical - Pract Medical VM_HOU_Beel e Stigler [address], [place] [address] , Ph. 2021-09-19 2021-09-19 Outpatient Piazza_D VFP VFP [id number] 6-20 [facility] 08:07:00 08:07:00 [id number] Family Practic e 2021-09-11 2021-09-11 Outpatient Piazza_D VFP VFP [id number] -20 [facility] 05:46:00 05:46:00 [id number] Family Practic e 2021-09-11 2021-09-11 Jose VFP [place] - [id number] V illage 00:00:00 00:00:00 [facility] DO: 7111 Medical - Pract Medical VM_HOU_Beel e Stigler [address], [place] [address] , Ph. 2021-09-04 2021-09-04 Outpatient Piazza_D VFP VFP [id number] 6-20 Village 09:38:00 09:38:00 [id number] Family Practic e 2021-08-29 2021-08-29 Outpatient Piazza_D VFP VFP [id number] 6-20 [facility] 11:00:00 11:00:00 [id number] Family Practic e 2021-08-11 2021-08-11 Outpatient Piazza_D VFP VFP [id number] [facility] 03:06:00 03:06:00 [id number] Family Practic e 2021-08-11 2021-08-11 Outpatient Piazza_D VFP VFP [id number] 20 [facility] 03:06:00 03:06:00 [id number] Family Practic e 2021-08-11 2021-08-11 Jose VFP [place] - [id number] V illage 00:00:00 00:00:00 Ivis Pabon Family DO: 7111 Medical - Pract ic Medical _HOU_Beel e [facility] Cristofer [address], [address], [place] [address] , Ph. 2021-08-10 2021-08-10 Outpatient Piazza_D VFP VFP [id number] [facility] 11:28:00 11:28:00 [id number] Family Practic e 2021-08-09 2021-08-09 Emergency X [facility], [facility] [[email or web address]] ERT [id number] Univers 05:43:00 06:45:00 ESCOBAR gaytan [facility] 2021-08-09 2021-08-09 Emergency [facility] [id number] [id number] Univers 05:43:00 06:45:00 [facility]13.[address] [facility] 4.2.7.2.686 [facility] [id number] [address] ([facility]) 2021-08-06 2021-08-06 Outpatient Piazza_D VFP VFP [id number] 20 [facility] 06:33:00 06:33:00 [id number] Family Practic e 2021-07-16 2021-07-16 Outpatient Piazza_D VFP VFP [id number] 20 [facility] 01:30:00 01:30:00 [id number] Family Practic e 2021-07-15 2021-07-15 Transition JASPAL Damico 1.2.840.114 [id number] Univers 00:00:00 00:00:00 of Care Mackenzie Moore REBECCA 350.1.13.10 i ty of [place] 4.2.7.2.[place] [id number] [facility] 403 Branch 2021-07-09 2021-07-13 Inpatient X CODY DENT [facility] [[email or web address]] MPU [id number] Univers 07:40:00 17:30:00 ity of [facility] 2021-07-09 2021-07-13 Hospital Wai Ibrahim 1.2.840 .114 [id number] Univers 07:40:00 17:30:00 Encounter Faviola Beaulieujuliette Kim MICHAEL 350.1.13. 10 ity [facility] 4.2.7.2. 686 [place] Cody Dent [id number] Medical 095 Branch 2021-07-13 2021-07-13 Nurse MESSI Puente 1.2.840.114 [id number] Univers 00:00:00 00:00:00 Triage Niesha MICHAEL 350.1.13.10 it y of [facility] 4.2.7.2.686 Kameron as [id number] [facility] 019 Branch 2021-04-15 2021-04-15 [facility] [id number] [facility] 16:05:00 16:05:[address] [place] [address] 2021-03-28 2021-03-28 Emergency CHUCKIE Baumann [facility] SAKSHI [id number] [facility] 01:20:00 01:29:00 Daniela 18 [facility] 2020-07-01 2020-07-01 Outpatient R [facility] [id number] [facility] 08:45:00 08:45:00 MINOR gaytan of [facility] 2020-06-26 2020-06-26 Office [facility] 1.2.840.114 [id number] [facility] 10:07:01 10:50:49 Visit Minor BAUM 350.1.13.10 ity [facility] [place]2.7.2.[place] [facility] [phone] [facility] Primary & 136 Branch Specialty Care 2020-06-26 2020-06-26 Outpatient R ANTONIO, [facility] [id number] Univers 10:30:00 10:30:[address] [facility] 2020-06-13 2020-06-13 Urgent Val Victor [facility] [[email or web address]] 1.2. 840.114 [id number] Univers 13:52:37 15:02:25 Care Unknown, Attending HEALTH 350.1.13.10 [facility] 4.2.7.2.686 [facility] [id number] [facility] Primary & [facility] Branch Specialty Care 2020-06-13 2020-06-13 Outpatient R ERIKA, [facility] [id number] Univers 14:00:00 14:00:[address] [facility] 2020-05-30 2020-05-30 Outpatient R ELISEO, [facility] [id number] Univers 08:45:00 08:45:[address] [facility] 2020-05-01 2020-05-01 Outpatient Roula DARDEN, [facility] [id number] Univers 08:20:00 08:20:[address] [facility] 2020-05-01 2020-05-01 Outpatient GCCOVIDV GCCOVIDV [id number] [facility]OVID 00:00:00 00:00:00 V 2020-04-09 2020-04-09 Outpatient Roula DARDEN, [facility] [id number] Univers 08:30:00 08:30:[address] [facility] 2020-04-09 2020-04-09 Outpatient GCCOVIDV GCCOVIDV [id number] [facility] 00:00:00 00:00:00 V 2019-11-21 2019-11-21 Ancillary Scrn, [employer] Employee [facility] [[email or web address]] 1.2.840.114 [id number] Univers 08:05:55 08:20:55 Visit Marla Lee 350.1.13.1 0 [facility] 4.2.7.2.686 [place] [id number] [facility] 141 Branch 2019-11-21 2019-11-21 Outpatient Roula LEE [facility] [id number] Univers 08:15:00 08:15:00 MARLA ity of [facility] 2019-07-27 2019-07-27 Telephone MESSI iDaz ..840.114 [id number] Univers 00:00:00 00:00:00 Heidi RODRIGUEZ 350.1.13.10 it y of HOSPITAL 4.2.7.2.686 [place] as [id number] [facility] [address] [place] 2019-07-25 2019-07-25 Urgent Heidi Diaz [facility] [[email or web address]] 1.2.840.11 [id number] Univers 14:01:53 16:26:30 Care [place] PRIMARY 350.1.13.10 ity of [place].7.2.[place] [id number] Mi dical [address]42 [place] 2019-07-25 2019-07-25 Chemical Plant Operator Pcp-Lab [facility] [[email or web address]] 1..840.114 [id number] Univers 15:11:26 15:13:11 Visit Tito Stewart PRIMARY 350.1.13.10 ity of [place].2.[place] [id number] Mi dical [address] [place] 2019-07-25 2019-07-25 Outpatient R [facility] [id number] Univers 14:00:00 14:00:00 ity of [facility] 2019-07-24 2019-07-24 Outpatient R [facility] [id number] Univers 15:40:00 15:40:00 ity [facility] 2019-07-24 2019-07-24 Telemedici Rachell Jasso [facility] [[email or web address]] ..840.11 4 [id number] Univers 10:53:09 11:13:09 ne Visit Ye Kirkpatrick E PRIMARY 350.1.13.10 ity of [place] [id number] Mi dical [address] [place] 2019-07-23 2019-07-23 Telephone Terry [facility] [[email or web address]] ..840.114 [id number] Univers 00:00:00 00:00:00 Tito PRIMARY 350.1.13.10 it y of [place].2.[place] [id number] [facility] 044 Branch 2019-06-29 2019-06-29 Telephone BEATRIZ Yao 1.2.840.114 [id number] Univers 00:00:00 00:00:00 Darwin Simon HEALTH 350.1.13.10 it y of [place] 4.2.7.2.686 [facility] [id number] [facility] Primary & 365 Branch Specialty Care 2019-06-29 2019-06-29 Telephone Doctor SWENSON 1.2.680.[id number] [place] [address] 00:00:00 00:00:00 Unassigned, MICHAEL 350.1.13.10 ity of [place] [facility] 4.2.7.2.686 [facility] [id number] [facility] 019 Branch 2019-05-27 2019-05-27 Urgent Luisacarlhemant Darwin Simon [facility] [[email or web address]] 1.2.840.1 14 [id number] [facility] 12:11:53 12:26:53 Care Unknown, Attending HEALTH 350.1.13.10 ity of [place] 4.2.7.2.[address] [place] [address] [phone] [facility] Primary & 370 Branch Specialty Care 2018-11-25 2018-11-25 Telephone Valente [facility] [[email or web address]] 1.2.840.114 [id number] 00:00:00 00:00:00 Val Arnold HEALTH 350.1.13.10 [place] 4.2.7.2.68[facility] [phone] Primary & 370 Specialty Care 2018-11-25 2018-11-25 Telephone Valente COVIDYA 1.2.840.114 [id number] Univers 00:00:00 00:00:00 Val Arnold HEALTH 350.1.13.10 ity of [place] 4.2.7.2.[address] [place] [address] [phone] [facility] Primary & 370 Branch Specialty Care 2018-11-21 2018-11-21 BEATRIZ Allen 1.2.930.858 [id number] 19:59:23 22:05:25 Care Val Arnold HEALTH 350.1.13.10 [place] 4.2.7.2.686 [facility] [phone] Primary & 370 Specialty Care 2018-11-21 2018-11-21 Urgent Val Victor [facility] [[email or web address]] 1.2. 840.114 [id number] Univers 19:59:23 22:05:25 Care Unknown, Attending HEALTH 350.1.13.10 ity of [place] 4.2.7.2.686 [facility] [phone] [facility] Primary & 370 Branch Specialty Care 2018-11-21 2018-11-21 Orders Doctor MESSI 1.2.840.114 [id number] 00:00:00 00:00:00 Only Unassigned, MICHAEL 350.1.13.10 [place] [facility] 4.2.7.2.686 [id number] 2018-11-21 2018-11-21 Orders Doctor MESSI 1.2.840.114 [id number] Univers 00:00:00 00:00:00 Only Unassigned, MICHAEL 350.1.13.10 ity of [place] [facility] 4.2.7.2.686 [facility] [id number] [facility] 009 Branch Results Test Description Test Time Test Comments Results Result Comments Source POCT SARS-COV-2 ANTIGEN (BINAX NOW) 2022-04-09 16:56:00 Test Item Value Reference Range Interpretation Comme nts POCT SARS-COV-2 ANTIGEN (test code = 32635-6) Positive Not Dete cted A On board controls acceptable with C Line (test code = 3574) Yes Lab Interpretation (test code = 38315-8) [facility]2022-[facility]-24 19:00:06 Test Item Value Reference Range Interpretation Comments POCT GLU (test code = 9990315251) 290 mg/dL 70-110 H Lab Interpretation (test code = Abnormal 58207-8) [facility]2022-[facility]-24 13:02:28 Test Item Value Reference Range Interpretation Comments POCT GLU (test code = 3634672548) 152 mg/dL 70-110 H Lab Interpretation (test code = Abnormal 48233-4) [facility] GLUCOSE (AUTOMATED)2022-01-24 01:56:36 Test Item Value Reference Range Interpretation Comments POCT GLU (test code = 0374203900) 172 mg/dL 70-110 H Lab Interpretation (test code = Abnormal 31168-2) [facility], [id number] 01:31:00 Test Item Value Reference Range Interpretation Comments dLDL Chol (test code = 77 mg/dL See_Comment [Aut omated message] 94866-7) The system [employer] generated this result transmitted ref erence range: <=130. T he reference range was not used to int erpret this result as normal/abnormal . Lab Interpretation (test Normal code = 89488-9) [facility] (68994)(TOTAL CHOLESTEROL, TRIGLYCERIDES, HDL)2022-01-24 00:10:00 Test Item Value Reference Range Interpretation Comments CHOL (test code = 212 mg/dL 120-200 H 6357782149) HDL (test code = 17 mg/dL See_Comment L [Automated message] 2273046128) The system [employer] generated this result transmitted ref erence range: >=40. Th e reference range was not used to int erpret this result as normal/abnormal . HDLC RATIO (test code = See_Comment H [Au tomated message] 8229718335) The system [employer] generated this result transmitted ref erence range: <=5.0. T he reference range was not used to int erpret this result as normal/abnormal . TRIG (test code = 624 mg/dL 30-170 H 6246757848) LDL CHOL (test code = Unable to calculate 61603-9) LDL due to elev ated triglyceride le [place] greater than 40 0 mg/dL. VLDL (test code = 125 mg/dL 5-60 H 8088669686) Lab Interpretation Abnormal (test code = 64840-1) [facility] GLUCOSE (AUTOMATED)2022-01-23 23:12:37 Test Item Value Reference Range Interpretation Comments POCT GLU (test code = 7780022903) 309 mg/dL 70-110 H Lab Interpretation (test code = Abnormal 08053-5) [facility] 23:08:32 Test Item Value Reference Range Interpretation Comments LIPASE (test code = 5929902087) 123 U/L 0-220 Lab Interpretation (test code = Normal 40718-6) [facility] GLUCOSE (AUTOMATED)2022-01-23 14:27:41 Test Item Value Reference Range Interpretation Comments POCT GLU (test code = 9233691878) 227 mg/dL 70-110 H Lab Interpretation (test code = Abnormal 34412-3) [facility]2022-01-23 11:42:02 Test Item Value Reference Range Interpretation Comments POCT GLU (test code = 5587158717) 147 mg/dL 70-110 H Lab Interpretation (test code = Abnormal 45862-0) [facility]2022-01-23 10:50:16 Test Item Value Reference Range Interpretation Comments POCT GLU (test code = 3826150494) 140 mg/dL 70-110 H Lab Interpretation (test code = Abnormal 42411-9) [facility]2022-01-23 09:49:50 Test Item Value Reference Range Interpretation Comments POCT GLU (test code = 9077849111) 114 mg/dL 70-110 H Lab Interpretation (test code = Abnormal 60355-3) [facility]2022-01-23 09:05:50 Test Item Value Reference Range Interpretation Comments POCT GLU (test code = 7858380579) 65 mg/dL 70-110 L Lab Interpretation (test code = Abnormal 92655-3) [facility]2022-01-23 07:49:25 Test Item Value Reference Range Interpretation Comments POCT GLU (test code = 6503238424) 122 mg/dL 70-110 H Lab Interpretation (test code = Abnormal 44336-4) [facility]2022-01-23 05:55:08 Test Item Value Reference Range Interpretation Comments POCT GLU (test code = 9533286814) 92 mg/dL 70-110 Lab Interpretation (test code = Normal 24845-9) [facility]2022-01-23 05:08:27 Test Item Value Reference Range Interpretation Comments POCT GLU (test code = 1523020561) 86 mg/dL 70-110 Lab Interpretation (test code = Normal 41851-0) [facility]2022-01-23 03:56:07 Test Item Value Reference Range Interpretation Comments POCT GLU (test code = 6298988226) 123 mg/dL 70-110 H Lab Interpretation (test code = Abnormal 65302-6) [facility]2022-[facility]23 02:54:33 Test Item Value Reference Range Interpretation Comments POCT GLU (test code = 1407422640) 74 mg/dL 70-110 Lab Interpretation (test code = Normal 05518-7) [facility]2022-01-23 01:56:25 Test Item Value Reference Range Interpretation Comments POCT GLU (test code = 9963982320) 91 mg/dL 70-110 Lab Interpretation (test code = Normal 96096-1) [facility] GLUCOSE (AUTOMATED)2022-01-23 00:38:18 Test Item Value Reference Range Interpretation Comments POCT GLU (test code = 9840557265) 98 mg/dL 70-110 Lab Interpretation (test code = Normal 25138-9) [facility] GLUCOSE (AUTOMATED)2022-01-22 22:59:47 Test Item Value Reference Range Interpretation Comments POCT GLU (test code = 4269013638) 117 mg/dL 70-110 H Lab Interpretation (test code = Abnormal 63876-9) [facility] GLUCOSE (AUTOMATED)2022-01-22 22:17:55 Test Item Value Reference Range Interpretation Comments POCT GLU (test code = 121 mg/dL 70-110 H Notifi ed Provider [id number]) Lab Interpretation (test Abnormal code = 96548-7) [facility] GLUCOSE (AUTOMATED)2022-01-22 20:44:50 Test Item Value Reference Range Interpretation Comments POCT GLU (test code = 8453653295) 103 mg/dL 70-110 Lab Interpretation (test code = Normal 39599-5) [facility] GLUCOSE (AUTOMATED)2022-01-22 20:03:32 Test Item Value Reference Range Interpretation Comments POCT GLU (test code = 143 mg/dL 70-110 H Notifi ed Provider [id number]) Lab Interpretation (test Abnormal code = 51863-0) [facility] GLUCOSE (AUTOMATED)2022-01-22 18:52:05 Test Item Value Reference Range Interpretation Comments POCT GLU (test code = 148 mg/dL 70-110 H Notifi ed Provider [id number]) Lab Interpretation (test Abnormal code = 02812-1) [facility] GLUCOSE (AUTOMATED)2022-01-22 17:08:42 Test Item Value Reference Range Interpretation Comments POCT GLU (test code = 8031925845) 217 mg/dL 70-110 H Lab Interpretation (test code = Abnormal 71102-8) [facility]2022-01-22 16:05:35 Test Item Value Reference Range Interpretation Comments POCT GLU (test code = 2798961541) 68 mg/dL 70-110 L Lab Interpretation (test code = Abnormal 69787-0) [facility]2022-01-22 15:04:24 Test Item Value Reference Range Interpretation Comments POCT GLU (test code = 2068700090) 77 mg/dL 70-110 Lab Interpretation (test code = Normal 61780-2) [facility]2022-01-22 14:22:56 Test Item Value Reference Range Interpretation Comments POCT GLU (test code = 78 mg/dL 70-110 Notifi ed Provider [id number]) Lab Interpretation (test Normal code = 76199-4) [facility]2022-01-22 13:34:22 Test Item Value Reference Range Interpretation Comments POCT GLU (test code = 8027105336) 89 mg/dL 70-110 Lab Interpretation (test code = Normal 97923-7) [facility]2022-01-22 12:55:10 Test Item Value Reference Range Interpretation Comments POCT GLU (test code = 2025962940) 88 mg/dL 70-110 Lab Interpretation (test code = Normal 63631-7) [facility]2022-01-22 11:23:49 Test Item Value Reference Range Interpretation Comments POCT GLU (test code = 6966269847) 143 mg/dL 70-110 H Lab Interpretation (test code = Abnormal 83745-7) [facility]2022-01-22 10:25:07 Test Item Value Reference Range Interpretation Comments POCT GLU (test code = 2726409430) 97 mg/dL 70-110 Lab Interpretation (test code = Normal 54643-8) [facility]2022-01-22 09:58:30 Test Item Value Reference Range Interpretation Comments POCT GLU (test code = 6841390277) 70 mg/dL 70-110 Lab Interpretation (test code = Normal 79020-9) [facility]2022-01-22 09:55:54 Test Item Value Reference Range Interpretation Comments POCT GLU (test code = 4778928130) 70 mg/dL 70-110 Lab Interpretation (test code = Normal 77629-0) [facility]2022-01-22 08:56:03 Test Item Value Reference Range Interpretation Comments POCT GLU (test code = 8466010648) 90 mg/dL 70-110 Lab Interpretation (test code = Normal 26101-8) [facility]2022-01-22 07:55:26 Test Item Value Reference Range Interpretation Comments POCT GLU (test code = 7811046848) 91 mg/dL 70-110 Lab Interpretation (test code = Normal 99097-5) [facility] GLUCOSE (AUTOMATED)2022-01-22 06:50:32 Test Item Value Reference Range Interpretation Comments POCT GLU (test code = 6080548314) 97 mg/dL 70-110 Lab Interpretation (test code = Normal 66860-1) [facility] GLUCOSE (AUTOMATED)2022-01-22 05:50:48 Test Item Value Reference Range Interpretation Comments POCT GLU (test code = 0850444978) 117 mg/dL 70-110 H Lab Interpretation (test code = Abnormal 70437-7) [facility] GLUCOSE (AUTOMATED)2022-01-22 04:37:57 Test Item Value Reference Range Interpretation Comments POCT GLU (test code = 157 mg/dL 70-110 H Notifi ed Provider [id number]) Lab Interpretation (test Abnormal code = 19530-1) [facility]2022-[facility]22 04:36:00 Test Item Value Reference Range Interpretation Comments POCT GLU (test code = 2392658011) 82 mg/dL 70-110 Lab Interpretation (test code = Normal 26811-2) [facility]2022-01-22 03:53:47 Test Item Value Reference Range Interpretation Comments POCT GLU (test code = 2145636871) 67 mg/dL 70-110 L Lab Interpretation (test code = Abnormal 13590-8) [facility] GLUCOSE (AUTOMATED)2022-01-22 02:56:31 Test Item Value Reference Range Interpretation Comments POCT GLU (test code = 7680544237) 106 mg/dL 70-110 Lab Interpretation (test code = Normal 40779-8) [facility] [facility] GLU[facility]SE (AUTOMATED)2022-01-22 02:18:11 Test Item Value Reference Range Interpretation Comments POCT GLU (test code = 0277476911) 92 mg/dL 70-110 Lab Interpretation (test code = Normal 32668-9) [facility] GLUCOSE (AUTOMATED)2022-01-22 01:55:45 Test Item Value Reference Range Interpretation Comments POCT GLU (test code = 0206957311) 71 mg/dL 70-110 Lab Interpretation (test code = Normal 16317-4) [facility] GLUCOSE (AUTOMATED)2022-01-22 00:50:27 Test Item Value Reference Range Interpretation Comments POCT GLU (test code = 5827607915) 116 mg/dL 70-110 H Lab Interpretation (test code = Abnormal 73350-3) [facility] GLUCOSE (AUTOMATED)2022-01-21 23:38:19 Test Item Value Reference Range Interpretation Comments POCT GLU (test code = 85 mg/dL 70-110 Notifi ed Provider [id number]) Lab Interpretation (test Normal code = 50680-8) [facility] GLUCOSE (AUTOMATED)2022-01-21 22:54:09 Test Item Value Reference Range Interpretation Comments POCT GLU (test code = 94 mg/dL 70-110 Notifi ed Provider [id number]) Lab Interpretation (test Normal code = 30241-9) [facility]-21 21:35:05 Test Item Value Reference Range Interpretation Comments HGB A1C (test code = 7.6 % 4-5.7 H 4548-4) VAHID (test code = VAHID) Reference RangesNormal: <5.7%Prediabetes: 5.7 - 6.4%Diabetes: > 6.5% Lab Interpretation (test Abnormal code = 62066-5) [facility] GLUCOSE (AUTOMATED)2022-01-21 21:17:58 Test Item Value Reference Range Interpretation Comments POCT GLU (test code = 4899750198) 116 mg/dL 70-110 H Lab Interpretation (test code = Abnormal 53695-7) [facility]OTE[facility], [id number] 20:12:15 Test Item Value Reference Range Interpretation Comments dLDL Chol (test code = See_Comment [Aut omated message] 46849-8) The system [employer] generated this result transmitted ref erence range: <=130. T he reference range was not used to int erpret this result as normal/abnormal . Lab Interpretation (test Normal code = 80479-6) [facility] (65572)(TOTAL CHOLESTEROL, TRIGLYCERIDES, HDL)2022-01-21 20:07:52 Test Item Value Reference Range Interpretation Comments CHOL (test code = 239 mg/dL 120-200 H 4723802261) HDL (test code = 26 mg/dL See_Comment L [Automated message] 3954866001) The system [employer] generated this result transmitted ref erence range: >=40. Th e reference range was not used to int erpret this result as normal/abnormal . HDLC RATIO (test code = See_Comment H [Au tomated message] 3951085082) The system [employer] generated this result transmitted ref erence range: <=5.0. T he reference range was not used to int erpret this result as normal/abnormal . TRIG (test code = 956 mg/dL 30-170 H 5776346265) LDL CHOL (test code = Unable to calculate 70308-7) LDL due to elev ated triglyceride [place] greater than 40 0 mg/dL. VLDL (test code = Unable to calculate 5578548000) VLDL due to era vated triglyceride [place] greater than 71 0 mg/dL. Lab Interpretation Abnormal (test code = 75737-6) [facility] 18:53:27 Test Item Value Reference Range Interpretation Comments POCT GLU (test code = 110 mg/dL 70-110 Notifi ed Provider [id number]) Lab Interpretation (test Normal code = 60746-8) [facility] (NA, K, CL, CO2, GLUCOSE, BUN, CREATININE, CA)2022-01-21 18:28:35 Test Item Value Reference Range Interpretation Comments NA (test code = 135 mmol/L 135-145 5426789851) K (test code = 3.9 mmol/L 3.5-5 4000619943) CL (test code = 102 mmol/L 98-108 3922856338) CO2 TOTAL (test code = 24 mmol/L 23-31 4981635971) AGAP (test code = 2-16 8540366581) BUN (test code = 12 mg/dL 7-23 0902738882) GLUCOSE (test code = 163 mg/dL 70-110 H 1465673184) CREATININE (test code = 0.65 mg/dL 0.6-1.25 3266763725) CALCIUM (test code = 8.7 mg/dL 8.6-10.6 3150029234) eGFR (test code = mL/min/1.73m2 7831786623) VAHID (test code = VAHID) Association of Glomerular Filtration Rate (GFR) and Staging of Kidney Disease* + --+ --+ ------+| GFR (mL/min/1.73 m2) ?| With Kidney Damage ?| ?Without Kidney Damage+ --------+ --------+ +| ?>90 ?| ?Stage one ?| ? Normal ?+ ---+ ---+ -------+| ?60-89 ?| ?Stage two ?| ? Decreased GFR ? + --+ --+ ------+| ?30-59 ?| ?Stage three ?| ? Stage three ? + --+ --+ ------+| ?15-29 ?| ?Stage four ? | ? Stage four ?+ ---+ ---+ -------+| ?<15 (or dialysis) ? ?| ?Stage five ? | ? Stage five ?+ ---+ ---+ -------+ *Each stage assumes the associated GFR level has been in effect for at least three months. ?Stages 1 to 5, with or without kidney disease, indicate chronic kidney disease. Notes: Determination of stages one and two (with eGFR >59mL/min/1.73 m2) requires estimation of kidney damage for at least three months as defined by structural or functional abnormalities of the kidney, manifested by either:Pathological abnormalities or Markers of kidney damage (including abnormalities in the composition of the blood or urine or abnormalities in imaging tests). Lab Interpretation Abnormal (test code = 39484-8) [facility] GLUCOSE (AUTOMATED)2022-01-21 17:12:55 Test Item Value Reference Range Interpretation Comments POCT GLU (test code = 5772709213) 196 mg/dL 70-110 H Lab Interpretation (test code = Abnormal 64546-2) [facility] GLUCOSE (AUTOMATED)2022-01-21 15:09:06 Test Item Value Reference Range Interpretation Comments POCT GLU (test code = 3028369866) 197 mg/dL 70-110 H Lab Interpretation (test code = Abnormal 58001-5) [facility] GLUCOSE (AUTOMATED)2022-01-21 14:10:26 Test Item Value Reference Range Interpretation Comments POCT GLU (test code = 173 mg/dL 70-110 H Notifi ed Provider [id number]) Lab Interpretation (test Abnormal code = 42907-4) [facility] L[facility]ROTEIN, [id number] 13:35:48 Test Item Value Reference Range Interpretation Comments dLDL Chol (test code = See_Comment [Au tomated message] 43690-4) The system [employer] generated this result transmitted ref erence range: <=130. T he reference range was not used to int erpret this result as normal/abnormal . Lab Interpretation (test Normal code = 67161-9) [facility] GLUCOSE (AUTOMATED)2022-01-21 13:14:32 Test Item Value Reference Range Interpretation Comments POCT GLU (test code = 6622846020) 195 mg/dL 70-110 H Lab Interpretation (test code = Abnormal 42086-2) [facility] GLUCOSE (AUTOMATED)2022-01-21 12:54:31 Test Item Value Reference Range Interpretation Comments POCT GLU (test code = 1460957854) 156 mg/dL 70-110 H Lab Interpretation (test code = Abnormal 00688-1) [facility] GLUCOSE (AUTOMATED)2022-01-21 12:54:31 Test Item Value Reference Range Interpretation Comments POCT GLU (test code = 1450182731) 158 mg/dL 70-110 H Lab Interpretation (test code = Abnormal 61998-6) [facility] GLUCOSE (AUTOMATED)2022-01-21 12:18:08 Test Item Value Reference Range Interpretation Comments POCT GLU (test code = 175 mg/dL 70-110 H Notifi ed Provider [id number]) Lab Interpretation (test Abnormal code = 16772-7) [facility] GLUCOSE (AUTOMATED)2022-01-21 11:42:50 Test Item Value Reference Range Interpretation Comments POCT GLU (test code = 9989812523) 194 mg/dL 70-110 H Lab Interpretation (test code = Abnormal 08928-5) [facility] GLUCOSE (AUTOMATED)2022-01-21 10:36:06 Test Item Value Reference Range Interpretation Comments POCT GLU (test code = 6453499410) 182 mg/dL 70-110 H Lab Interpretation (test code = Abnormal 28579-7) [facility]17124)(TOTAL CHOLESTEROL, TRIGLYCERIDES, HDL)2022-01-21 10:28:11 Test Item Value Reference Range Interpretation Comments CHOL (test code = 251 mg/dL 120-200 H 6748396814) HDL (test code = 26 mg/dL See_Comment L [Automated message] 1635518396) The system [employer] generated this result transmit heriberto reference range : >=40. The refer ence range was not u sed to interpret th is result as normal/abnormal . HDLC RATIO (test code = See_Comment H [Au tomated message] 9908229191) The system [employer] generated this result transmit heriberto reference range : <=5.0. The refe rence range was not u sed to interpret th is result as normal/abnormal . TRIG (test code = 1111 mg/dL 30-170 H 0429165305) LDL CHOL (test code = Unable to calculate 14720-4) LDL due to elev ated triglyceride [place] greater than 40 0 mg/dL. VLDL (test code = Unable to calculate 0081132850) VLDL due to era vated triglyceride [place] greater than 71 0 mg/dL. Lab Interpretation Abnormal (test code = 49276-2) [facility] GLUCOSE (AUTOMATED)2022-01-21 09:26:26 Test Item Value Reference Range Interpretation Comments POCT GLU (test code = 8384012325) 136 mg/dL 70-110 H Lab Interpretation (test code = Abnormal 85347-1) [facility] 08:32:50 Test Item Value Reference Range Interpretation Comments MAGNESIUM (test code = 9772646327) 2.2 mg/dL 1.7-2.4 Lab Interpretation (test code = Normal 67357-4) [facility] METABOLIC PANEL (NA, K, CL, CO2, GLUCOSE, BUN, CREATININE, CA)2022-01-21 08:32:49 Test Item Value Reference Range Interpretation Comments NA (test code = 136 mmol/L 135-145 0062731791) K (test code = 4.1 mmol/L 3.5-5 3188742505) CL (test code = 101 mmol/L 98-108 2797277755) CO2 TOTAL (test code = 25 mmol/L 23-31 4233717856) AGAP (test code = 2-16 5938600691) BUN (test code = 13 mg/dL 7-23 9795085616) GLUCOSE (test code = 145 mg/dL 70-110 H 9950651899) CREATININE (test code = 0.66 mg/dL 0.6-1.25 2074367137) CALCIUM (test code = 8.7 mg/dL 8.6-10.6 1409106708) eGFR (test code = mL/min/1.73m2 3871632255) VAHID (test code = VAHID) Association of Glomerular Filtration Rate (GFR) and Staging of Kidney Disease* + --+ --+ ------+| GFR (mL/min/1.73 m2) ?| With Kidney Damage ?| ?Without Kidney Damage+ --------+ --------+ +| ?>90 ?| ?Stage one ?| ? Normal ?+ ---+ ---+ -------+| ?60-89 ?| ?Stage two ?| ? Decreased GFR ? + --+ --+ ------+| ?30-59 ?| ?Stage three ?| ? Stage three ? + --+ --+ ------+| ?15-29 ?| ?Stage four ? | ? Stage four ?+ ---+ ---+ -------+| ?<15 (or dialysis) ? ?| ?Stage five ? | ? Stage five ?+ ---+ ---+ -------+ *Each stage assumes the associated GFR level has been in effect for at least three months. ?Stages 1 to 5, with or without kidney disease, indicate chronic kidney disease. Notes: Determination of stages one and two (with eGFR >59mL/min/1.73 m2) requires estimation of kidney damage for at least three months as defined by structural or functional abnormalities of the kidney, manifested by either:Pathological abnormalities or Markers of kidney damage (including abnormalities in the composition of the blood or urine or abnormalities in imaging tests). Lab Interpretation Abnormal (test code = 07337-8) [facility] WITH [id number] 08:16:07 Test Item Value Reference Range Interpretation Comments WBC (test code = See_Comment H [Automated 5690-2) message] The system which generated this result transmit heriberto reference range : 4.20 - 10.70 10*3/?L. The reference range was not used to interpret this result as normal/abnormal . RBC (test code = See_Comment [Automated 789-8) message] The system which generated this result transmit heriberto reference range : 4.26 - 5.52 10*6/?L. The reference range was not used to interpret this result as normal/abnormal . HGB (test code = 14.6 g/dL 12.2-16.4 718-7) HCT (test code = 40.8 % 38.4-49.3 4544-3) MCV (test code = 84.5 fL 81.7-95.6 787-2) MCH (test code = 30.2 pg 26.1-32.7 785-6) MCHC (test code = 35.8 g/dL 31.2-35 H 786-4) RDW-SD (test code = 38.9 fL 38.5-51.6 68300-1) RDW-CV (test code = 12.7 % 12.1-15.4 788-0) PLT (test code = See_Comment L [Automated 777-3) message] The system which generated this result transmit heriberto reference range : 150 - 328 10*3/ ?L. The reference range was not u sed to interpret th is result as normal/abnormal . MPV (test code = 11.8 fL 9.8-13 16118-1) NRBC/100 WBC (test See_Comment [Automat ed code = 4497517778) message] The system which generated this result transmit heriberto reference range : 0.0 - 10.0 /100 WBCs. The reference range was not used to interpret this result as normal/abnormal . NRBC x10^3 (test code See_Comment [Auto mated = 4546858871) message] The system which generated this result transmit heriberto reference range : 10*3/?L. The reference range was not used to interpret this result as normal/abnormal . GRAN MAT (NEUT) % 78.9 % (test code = 770-8) IMM GRAN % (test code 0.70 % = 7214117535) LYMPH % (test code = 11.3 % 736-9) MONO % (test code = 7.8 % 5905-5) EOS % (test code = 0.9 % 713-8) BASO % (test code = 0.4 % 706-2) GRAN MAT x10^3(ANC) 10.69 10*3/uL 1.99-6.95 H (test code = 0590182299) IMM GRAN x10^3 (test 0.10 10*3/uL 0-0.06 H code = 5863714401) LYMPH x10^3 (test code 1.53 10*3/uL 1.09-3.23 = 731-0) MONO x10^3 (test code 1.06 10*3/uL 0.36-1.02 H = 742-7) EOS x10^3 (test code = 0.12 10*3/uL 0.06-0.53 711-2) BASO x10^3 (test code 0.05 10*3/uL 0.01-0.09 = 704-7) Lab Interpretation Abnormal (test code = 10843-8) [facility] GLUCOSE (AUTOMATED)2022-01-21 07:33:39 Test Item Value Reference Range Interpretation Comments POCT GLU (test code = 0264064176) 146 mg/dL 70-110 H Lab Interpretation (test code = Abnormal 72469-7) [facility] GLUCOSE (AUTOMATED)2022-01-21 05:30:00 Test Item Value Reference Range Interpretation Comments POCT GLU (test code = 8943967141) 163 mg/dL 70-110 H Lab Interpretation (test code = Abnormal 64317-1) [facility] METABOLIC PANEL (NA, K, CL, CO2, GLUCOSE, BUN, CREATININE, CA)2022-01-21 03:50:43 Test Item Value Reference Range Interpretation Comments NA (test code = 135 mmol/L 135-145 3295478209) K (test code = 3.5 mmol/L 3.5-5 3995593072) CL (test code = 102 mmol/L 98-108 2861303227) CO2 TOTAL (test code = 24 mmol/L 23-31 8300548431) AGAP (test code = 2-16 0695179032) BUN (test code = 13 mg/dL 7-23 5270067365) GLUCOSE (test code = 134 mg/dL 70-110 H 7724055608) CREATININE (test code = 0.62 mg/dL 0.6-1.25 3988529363) CALCIUM (test code = 8.7 mg/dL 8.6-10.6 8793865790) eGFR (test code = mL/min/1.73m2 7654236659) VAHID (test code = VAHID) Association of Glomerular Filtration Rate (GFR) and Staging of Kidney Disease* + --+ --+ ------+| GFR (mL/min/1.73 m2) ?| With Kidney Damage ?| ?Without Kidney Damage+ --------+ --------+ +| ?>90 ?| ?Stage one ?| ? Normal ?+ ---+ ---+ -------+| ?60-89 ?| ?Stage two ?| ? Decreased GFR ? + --+ --+ ------+| ?30-59 ?| ?Stage three ?| ? Stage three ? + --+ --+ ------+| ?15-29 ?| ?Stage four ? | ? Stage four ?+ ---+ ---+ -------+| ?<15 (or dialysis) ? ?| ?Stage five ? | ? Stage five ?+ ---+ ---+ -------+ *Each stage assumes the associated GFR level has been in effect for at least three months. ?Stages 1 to 5, with or without kidney disease, indicate chronic kidney disease. Notes: Determination of stages one and two (with eGFR >59mL/min/1.73 m2) requires estimation of kidney damage for at least three months as defined by structural or functional abnormalities of the kidney, manifested by either:Pathological abnormalities or Markers of kidney damage (including abnormalities in the composition of the blood or urine or abnormalities in imaging tests). Lab Interpretation Abnormal (test code = 76044-0) [facility] Test Item Value Reference Range Interpretation Comments MAGNESIUM (test code = 6479913817) 1.6 mg/dL 1.7-2.4 L Lab Interpretation (test code = Abnormal 02460-6) [facility] GLUCOSE (AUTOMATED)2022-01-21 03:11:51 Test Item Value Reference Range Interpretation Comments POCT GLU (test code = 4413587675) 135 mg/dL 70-110 H Lab Interpretation (test code = Abnormal 50691-7) [facility] GLUCOSE (AUTOMATED)2022-01-21 02:13:55 Test Item Value Reference Range Interpretation Comments POCT GLU (test code = 6531133763) 135 mg/dL 70-110 H Lab Interpretation (test code = Abnormal 32799-7) [facility] GLUCOSE (AUTOMATED)2022-01-21 01:04:53 Test Item Value Reference Range Interpretation Comments POCT GLU (test code = 5604479459) 176 mg/dL 70-110 H Lab Interpretation (test code = Abnormal 96635-0) [facility] GLUCOSE (AUTOMATED)2022-01-20 23:48:22 Test Item Value Reference Range Interpretation Comments POCT GLU (test code = 9445807921) 196 mg/dL 70-110 H Lab Interpretation (test code = Abnormal 81491-0) [facility] GLUCOSE (AUTOMATED)2022-01-20 22:31:52 Test Item Value Reference Range Interpretation Comments POCT GLU (test code = 5457023645) 159 mg/dL 70-110 H Lab Interpretation (test code = Abnormal 03724-2) [facility] GLUCOSE (AUTOMATED)2022-01-20 20:54:40 Test Item Value Reference Range Interpretation Comments POCT GLU (test code = 2841222882) 212 mg/dL 70-110 H Lab Interpretation (test code = Abnormal 12552-1) [facility] GLUCOSE (AUTOMATED)2022-01-20 20:54:35 Test Item Value Reference Range Interpretation Comments POCT GLU (test code = 7262530352) 184 mg/dL 70-110 H Lab Interpretation (test code = Abnormal 76894-4) [facility] GLUCOSE (AUTOMATED)2022-01-20 20:54:10 Test Item Value Reference Range Interpretation Comments POCT GLU (test code = 7353264596) 192 mg/dL 70-110 H Lab Interpretation (test code = Abnormal 59748-7) [facility] GLUCOSE (AUTOMATED)2022-01-20 11:02:26 Test Item Value Reference Range Interpretation Comments POCT GLU (test code = 4037959933) 199 mg/dL 70-110 H Lab Interpretation (test code = Abnormal 35871-9) [facility] LIP[facility]OTEIN, [id number] 08:10:24 Test Item Value Reference Range Interpretation Comments dLDL Chol (test code = See_Comment [Aut omated message] 29735-4) The system [employer] generated this result transmitted ref erence range: <=130. T he reference range was not used to int erpret this result as normal/abnormal . Lab Interpretation (test Normal code = 79494-9) [facility]IP[facility] (95789)(TOTAL CHOLESTEROL, TRIGLYCERIDES, HDL)2022-01-20 07:45:14 Test Item Value Reference Range Interpretation Comments CHOL (test code = 262 mg/dL 120-200 H 5325737836) HDL (test code = 25 mg/dL See_Comment L [Automated message] 2919109751) The system [employer] generated this result transmitted ref erence range: >=40. Th e reference range was not used to int erpret this result as normal/abnormal . HDLC RATIO (test code = See_Comment H [Au tomated message] 3705820328) The system [employer] generated this result transmitted ref erence range: <=5.0. T he reference range was not used to int erpret this result as normal/abnormal . TRIG (test code = 30-170 H 8601045880) LDL CHOL (test code = Unable to calculate 58615-8) LDL due to elev ated triglyceride [place] greater than 40 0 mg/dL. VLDL (test code = Unable to calculate 2959195056) VLDL due to era vated triglyceride [place] greater than 71 0 mg/dL. Lab Interpretation Abnormal (test code = 87469-4) [facility] (87467)2022-01-20 07:13:14 Test Item Value Reference Range Interpretation Comments NA (test code = 138 mmol/L 135-145 7768866229) K (test code = 4.3 mmol/L 3.5-5 6924707709) CL (test code = 103 mmol/L 98-108 2509605790) CO2 TOTAL (test code = 23 mmol/L 23-31 2108676153) AGAP (test code = 2-16 0103509818) BUN (test code = 14 mg/dL 7-23 2934115805) GLUCOSE (test code = 241 mg/dL 70-110 H 6128751977) CREATININE (test code = 0.71 mg/dL 0.6-1.25 4421134404) TOTAL BILI (test code = 0.9 mg/dL 0.1-1.4 0617859961) CALCIUM (test code = 9.2 mg/dL 8.6-10.6 1090536462) T PROTEIN (test code = 7.8 g/dL 6.3-8.2 8102604517) ALBUMIN (test code = 4.6 g/dL 3.5-5 4914373666) ALK PHOS (test code = 84 U/L 34-122 3982446359) ALTv (test code = 60 U/L 5-50 H 1742-6) AST(SGOT) (test code = 48 U/L 13-40 H 2317765880) eGFR (test code = mL/min/1.73m2 4283026350) VAHID (test code = VAHID) Association of Glomerular Filtration Rate (GFR) and Staging of Kidney Disease* + --+ --+ ------+| GFR (mL/min/1.73 m2) ?| With Kidney Damage ?| ?Without Kidney Damage+ --------+ --------+ +| ?>90 ?| ?Stage one ?| ? Normal ?+ ---+ ---+ -------+| ?60-89 ?| ?Stage two ?| ? Decreased GFR ? + --+ --+ ------+| ?30-59 ?| ?Stage three ?| ? Stage three ? + --+ --+ ------+| ?15-29 ?| ?Stage four ? | ? Stage four ?+ ---+ ---+ -------+| ?<15 (or dialysis) ? ?| ?Stage five ? | ? Stage five ?+ ---+ ---+ -------+ *Each stage assumes the associated GFR level has been in effect for at least three months. ?Stages 1 to 5, with or without kidney disease, indicate chronic kidney disease. Notes: Determination of stages one and two (with eGFR >59mL/min/1.73 m2) requires estimation of kidney damage for at least three months as defined by structural or functional abnormalities of the kidney, manifested by either:Pathological abnormalities or Markers of kidney damage (including abnormalities in the composition of the blood or urine or abnormalities in imaging tests). Lab Interpretation Abnormal (test code = 33005-6) [facility] 07:13:14 Test Item Value Reference Range Interpretation Comments LIPASE (test code = 5780376532) 1602 U/L 0-220 H Lab Interpretation (test code = Abnormal 23434-8) [facility] WITH [id number] 07:03:10 Test Item Value Reference Range Interpretation Comments WBC (test code = See_Comment H [Automated 9222-2) message] The system which generated this result transmit heriberto reference range : 4.20 - 10.70 10*3/?L. The reference range was not used to interpret this result as normal/abnormal . RBC (test code = See_Comment [Automated 759-8) message] The system which generated this result transmit heriberto reference range : 4.26 - 5.52 10*6/?L. The reference range was not used to interpret this result as normal/abnormal . HGB (test code = 16.0 g/dL 12.2-16.4 718-7) HCT (test code = 44.9 % 38.4-49.3 4544-3) MCV (test code = 85.0 fL 81.7-95.6 787-2) MCH (test code = 30.3 pg 26.1-32.7 785-6) MCHC (test code = 35.6 g/dL 31.2-35 H 786-4) RDW-SD (test code = 38.1 fL 38.5-51.6 L 93118-6) RDW-CV (test code = 12.4 % 12.1-15.4 788-0) PLT (test code = See_Comment [Automated 777-3) message] The system which generated this result transmit heriberto reference range : 150 - 328 10*3/ ?L. The reference range was not u sed to interpret th is result as normal/abnormal . MPV (test code = 11.8 fL 9.8-13 57274-9) NRBC/100 WBC (test See_Comment [Automat ed code = 7120672687) message] The system which generated this result transmit heriberto reference range : 0.0 - 10.0 /100 WBCs. The reference range was not used to interpret this result as normal/abnormal . NRBC x10^3 (test code See_Comment [Auto mated = 1230957822) message] The system which generated this result transmit heriberto reference range : 10*3/?L. The reference range was not used to interpret this result as normal/abnormal . GRAN MAT (NEUT) % 82.8 % (test code = 770-8) IMM GRAN % (test code 0.80 % = 3913666995) LYMPH % (test code = 9.8 % 736-9) MONO % (test code = 5.9 % 5905-5) EOS % (test code = 0.4 % 713-8) BASO % (test code = 0.3 % 706-2) GRAN MAT x10^3(ANC) 12.13 10*3/uL 1.99-6.95 H (test code = 8867238294) IMM GRAN x10^3 (test 0.12 10*3/uL 0-0.06 H code = 6496737823) LYMPH x10^3 (test code 1.44 10*3/uL 1.09-3.23 = 731-0) MONO x10^3 (test code 0.86 10*3/uL 0.36-1.02 = 742-7) EOS x10^3 (test code = 0.06 10*3/uL 0.06-0.53 711-2) BASO x10^3 (test code 0.04 10*3/uL 0.01-0.09 = 704-7) Lab Interpretation Abnormal (test code = 56711-1) [facility] [[facility] activity/volume] in Serum or [id number] 00:00:00 Test Item Value Reference Range Interpretation Comments lipase (test code = lipase) 47 U[facility]L 7-[address] [facility] activity/volume] in Serum or Plasma 2021-08-13 00:00:00 Test Item Value Reference Range Interpretation Comments amylase (test code = amylase) 27 U/L 21-[address] [facility] HospitalHemoglobin A1c/Hemoglobin.total in [id number] 00:00:00 Test Item Value Reference Range Interpretation Comments Hemoglobin 8.3 % of total HGB <5.7 H A1c/Hemoglobin.total in Blood (test code = 4548-4) EAG (mg/dL) (test code = 192 mg/dL EAG (mg/dL)) EAG (mmol/L) (test code = 10.6 mmol/L EAG (mmol/L)) [facility] - Serum or [id number] 00:00:00 Test Item Value Reference Range Interpretation Comments glucose (test code 152 mg/dL 65-99 H = glucose) urea nitrogen 16 mg/dL 7-25 (BUN) (test code = urea nitrogen (BUN)) creatinine (test 0.89 mg/dL 0.60-1.35 code = creatinine) eGFR non-afr. 111 mL/min/1.73m2 See_Comment [Automat ed tuvaluan (test message] The code = eGFR system which non-afr. tuvaluan) generated this result transmit heriberto reference range : > or = 60. The reference range was not used to interpret this result as normal/abnormal . eGFR 128 mL/min/1.73m2 See_Comment [Automate d tuvaluan (test message] The code = eGFR system which ) generated this result transmit heriberto reference range : > or = 60. The reference range was not used to interpret this result as normal/abnormal . BUN/creatinine not applicable 6-22 ratio (test code = BUN/creatinine ratio) sodium (test code 138 mmol/L 135-146 = sodium) potassium (test 4.5 mmol/L 3.5-5.3 code = potassium) chloride (test 104 mmol/L 98-110 code = chloride) carbon dioxide 29 mmol/L 20-32 (test code = carbon dioxide) calcium (test code 9.6 mg/dL 8.6-10.3 = calcium) [facility] Ratio] in [id number] 00:00:00 Test Item Value Reference Range Interpretation Comments creatinine, random urine (test 177 mg/dL 20-320 code = creatinine, random urine) albumin, urine (test code = 1.2 mg/dL see note: albumin, urine) albumin/creatinine ratio, 7 mcg/mg creat <30 random urine (test code = albumin/creatinine ratio, random urine) [facility] GLUCOSE (AUTOMATED)2021-07-13 22:02:23 Test Item Value Reference Range Interpretation Comments POCT GLU (test code = 9182802518) 177 mg/dL 70-110 H Lab Interpretation (test code = Abnormal 24533-8) [facility] GLUCOSE (AUTOMATED)2021-07-13 17:06:19 Test Item Value Reference Range Interpretation Comments POCT GLU (test code = 8849831156) 174 mg/dL 70-110 H Lab Interpretation (test code = Abnormal 02777-2) [facility] GLUCOSE (AUTOMATED)2021-07-13 13:49:02 Test Item Value Reference Range Interpretation Comments POCT GLU (test code = 7003950758) 184 mg/dL 70-110 H Lab Interpretation (test code = Abnormal 18952-4) [facility], [id number] 10:48:08 Test Item Value Reference Range Interpretation Comments dLDL Chol (test code = 13273-6) 81 mg/dL <130 Lab Interpretation (test code = Normal 94795-6) [facility] (68705)(TOTAL CHOLESTEROL, TRIGLYCERIDES, HDL)2021-07-13 10:28:53 Test Item Value Reference Range Interpretation Comments CHOL (test code = 251 mg/dL 120-200 H 7929078896) HDL (test code = 23 mg/dL >40 L 9992944384) HDLC RATIO (test code = See_Comment H [Au tomated message] 8281792652) The system [employer] generated this result transmitted ref erence range: <=5.0. T he reference range was not used to int erpret this result as normal/abnormal . TRIG (test code = 799 mg/dL 30-170 H 7816139197) LDL CHOL (test code = Unable to calculate 31619-7) LDL due to elev ated triglyceride [place] greater than 40 0 mg/dL. VLDL (test code = Unable to calculate 5214966720) VLDL due to era vated triglyceride [place] greater than 71 0 mg/dL. Lab Interpretation Abnormal (test code = 93119-2) [facility]. METABOLIC PANEL (26665)2021-07-13 10:19:25 Test Item Value Reference Range Interpretation Comments NA (test code = 136 mmol/L 135-145 7721450211) K (test code = 4.1 mmol/L 3.5-5.0 9750687870) CL (test code = 104 mmol/L 98-108 0906866519) CO2 TOTAL (test code = 24 mmol/L 23-31 0334765584) AGAP (test code = 2-16 8115613720) BUN (test code = 10 mg/dL 7-23 0370051295) GLUCOSE (test code = 167 mg/dL 70-110 H 5216577846) CREATININE (test code = 0.49 mg/dL 0.60-1.25 L 2071917900) TOTAL BILI (test code = 0.7 mg/dL 0.1-1.9 7910847168) CALCIUM (test code = 9.0 mg/dL 8.6-10.6 6228733367) T PROTEIN (test code = 6.8 g/dL 6.3-8.2 5745540599) ALBUMIN (test code = 4.0 g/dL 3.5-5.0 9755205359) ALK PHOS (test code = 73 U/L 34-122 2726783311) ALTv (test code = 26 U/L 5-50 1742-6) AST(SGOT) (test code = 30 U/L 13-40 8962339907) eGFR (test code = mL/min/1.73m2 4837389215) VAHID (test code = VAHID) Association of Glomerular Filtration Rate (GFR) and Staging of Kidney Disease* + --+ --+ ------+| GFR (mL/min/1.73 m2) ?| With Kidney Damage ?| ?Without Kidney Damage+ --------+ --------+ +| ?>90 ?| ?Stage one ?| ? Normal ?+ ---+ ---+ -------+| ?60-89 ?| ?Stage two ?| ? Decreased GFR ? + --+ --+ ------+| ?30-59 ?| ?Stage three ?| ? Stage three ? + --+ --+ ------+| ?15-29 ?| ?Stage four ? | ? Stage four ?+ ---+ ---+ -------+| ?<15 (or dialysis) ? ?| ?Stage five ? | ? Stage five ?+ ---+ ---+ -------+ *Each stage assumes the associated GFR level has been in effect for at least three months. ?Stages 1 to 5, with or without kidney disease, indicate chronic kidney disease. Notes: Determination of stages one and two (with eGFR >59mL/min/1.73 m2) requires estimation of kidney damage for at least three months as defined by structural or functional abnormalities of the kidney, manifested by either:Pathological abnormalities or Markers of kidney damage (including abnormalities in the composition of the blood or urine or abnormalities in imaging tests). Lab Interpretation Abnormal (test code = 09555-8) [facility] 10:19:25 Test Item Value Reference Range Interpretation Comments MAGNESIUM (test code = 2770209918) 1.4 mg/dL 1.7-2.4 L Lab Interpretation (test code = Abnormal 34106-3) [facility] 10:19:25 Test Item Value Reference Range Interpretation Comments PHOSPHORUS (test code = 1879660140) 4.4 mg/dL 2.5-5.0 Lab Interpretation (test code = Normal 90492-8) [facility] 10:19:25 Test Item Value Reference Range Interpretation Comments LIPASE (test code = 0631151336) 272 U/L 0-220 H Lab Interpretation (test code = Abnormal 78724-4) [facility] [id number] 09:41:41 Test Item Value Reference Range Interpretation Comments WBC (test code = See_Comment [Automated message] 6690-2) The system whic h generated this result transmitted ref erence range: 4.20 - 1 0.70 10*3/?L. The re ference range was not u sed to interpret this result as normal/abnor mal. RBC (test code = See_Comment [Automated message] 789-8) The system [employer] generated this result transmitted ref erence range: 4.26 - 5 .52 10*6/?L. The re ference range was not u sed to interpret this result as normal/abnor mal. HGB (test code = 13.9 g/dL 12.2-16.4 718-7) HCT (test code = 41.2 % 38.4-49.3 4544-3) MCV (test code = 86.4 fL 81.7-95.6 787-2) MCH (test code = 29.1 pg 26.1-32.7 785-6) MCHC (test code = 33.7 g/dL 31.2-35.0 786-4) RDW-SD (test code 38.9 fL 38.5-51.6 = 57497-1) RDW-CV (test code 12.4 % 12.1-15.4 = 788-0) PLT (test code = See_Comment [Automated message] 777-3) The system [employer] generated this result transmitted ref erence range: 150 - 32 8 10*3/?L. The re ference range was not u sed to interpret this result as normal/abnor mal. MPV (test code = 11.3 fL 9.8-13.0 07040-6) NRBC/100 WBC (test See_Comment [Automat ed message] code = 3218414643) The syste m which generated this result transmitted ref erence range: 0.0 - 10 .0 /100 WBCs. The refer ence range was not u sed to interpret this result as normal/abnor mal. NRBC x10^3 (test <0.01 See_Comment [Automated message] code = 2648858865) The syste m which generated this result transmitted ref erence range: 10*3/?L. The reference range was not used to interpr et this result as normal/abnormal . GRAN MAT (NEUT) % 56.6 % (test code = 770-8) IMM GRAN % (test 0.90 % code = 5624133843) LYMPH % (test code 31.8 % = 736-9) MONO % (test code 6.8 % = 5905-5) EOS % (test code = 3.0 % 713-8) BASO % (test code 0.9 % = 706-2) GRAN MAT 3.00 10*3/uL 1.99-6.95 x10^3(ANC) (test code = 5094827500) IMM GRAN x10^3 0.05 10*3/uL 0.00-0.06 (test code = 7270189913) LYMPH x10^3 (test 1.69 10*3/uL 1.09-3.23 code = 731-0) MONO x10^3 (test 0.36 10*3/uL 0.36-1.02 code = 742-7) EOS x10^3 (test 0.16 10*3/uL 0.06-0.53 code = 711-2) BASO x10^3 (test 0.05 10*3/uL 0.01-0.09 code = 704-7) [facility] GLUCOSE (AUTOMATED)2021-07-13 09:21:07 Test Item Value Reference Range Interpretation Comments POCT GLU (test code = 7674014946) 152 mg/dL 70-110 H Lab Interpretation (test code = Abnormal 67245-5) [facility] GLUCOSE (AUTOMATED)2021-07-13 05:44:04 Test Item Value Reference Range Interpretation Comments POCT GLU (test code = 0873872527) 139 mg/dL 70-110 H Lab Interpretation (test code = Abnormal 88427-1) [facility] GLUCOSE (AUTOMATED)2021-07-13 01:42:04 Test Item Value Reference Range Interpretation Comments POCT GLU (test code = 3965773548) 183 mg/dL 70-110 H Lab Interpretation (test code = Abnormal 29405-6) [facility] GLUCOSE (AUTOMATED)2021-07-12 22:32:00 Test Item Value Reference Range Interpretation Comments POCT GLU (test code = 3187838552) 174 mg/dL 70-110 H Lab Interpretation (test code = Abnormal 30672-3) [facility] GLUCOSE (AUTOMATED)2021-07-12 19:53:49 Test Item Value Reference Range Interpretation Comments POCT GLU (test code = 8754330965) 250 mg/dL 70-110 H Lab Interpretation (test code = Abnormal 68974-8) [facility] LIPOPROTEIN, [id number] 15:29:42 Test Item Value Reference Range Interpretation Comments dLDL Chol (test code = 59028-0) 52 mg/dL <130 Lab Interpretation (test code = Normal 99790-2) [facility] GLUCOSE (AUTOMATED)2021-07-12 15:17:39 Test Item Value Reference Range Interpretation Comments POCT GLU (test code = 1036489008) 290 mg/dL 70-110 H Lab Interpretation (test code = Abnormal 40468-5) [facility] (05197)(TOTAL CHOLESTEROL, TRIGLYCERIDES, HDL)2021-07-12 14:49:37 Test Item Value Reference Range Interpretation Comments CHOL (test code = 188 mg/dL 120-200 1951237335) HDL (test code = 19 mg/dL >40 L 4237521162) HDLC RATIO (test code = See_Comment H [Au tomated message] 3630859381) The system [employer] generated this result transmitted ref erence range: <=5.0. T he reference range was not used to int erpret this result as normal/abnormal . TRIG (test code = 631 mg/dL 30-170 H 6835463786) LDL CHOL (test code = Unable to calculate 30359-1) LDL due to elev ated triglyceride [place] greater than 40 0 mg/dL. VLDL (test code = 126 mg/dL 5-60 H 2903309177) Lab Interpretation Abnormal (test code = 60858-3) [facility] GLUCOSE (AUTOMATED)2021-07-12 13:32:39 Test Item Value Reference Range Interpretation Comments POCT GLU (test code = 2715127877) 135 mg/dL 70-110 H Lab Interpretation (test code = Abnormal 23959-9) [facility] GLUCOSE (AUTOMATED)2021-07-12 09:26:30 Test Item Value Reference Range Interpretation Comments POCT GLU (test code = 5392563923) 229 mg/dL 70-110 H Lab Interpretation (test code = Abnormal 56823-9) [facility] GLUCOSE (AUTOMATED)2021-07-12 05:10:15 Test Item Value Reference Range Interpretation Comments POCT GLU (test code = 4377540993) 209 mg/dL 70-110 H Lab Interpretation (test code = Abnormal 75744-4) [facility] GLUCOSE (AUTOMATED)2021-07-12 00:43:18 Test Item Value Reference Range Interpretation Comments POCT GLU (test code = 6175887517) 213 mg/dL 70-110 H Lab Interpretation (test code = Abnormal 21492-6) [facility] GLUCOSE (AUTOMATED)2021-07-11 23:07:11 Test Item Value Reference Range Interpretation Comments POCT GLU (test code = 6419646386) 208 mg/dL 70-110 H Lab Interpretation (test code = Abnormal 49044-6) [facility] GLUCOSE (AUTOMATED)2021-07-11 22:14:45 Test Item Value Reference Range Interpretation Comments POCT GLU (test code = 9119622079) 224 mg/dL 70-110 H Lab Interpretation (test code = Abnormal 44431-9) [facility] LIPOP[facility]OTEIN, [id number] 21:29:28 Test Item Value Reference Range Interpretation Comments dLDL Chol (test code = 27557-7) 33 mg/dL <130 Lab Interpretation (test code = Normal 46779-5) [facility] GLUCOSE (AUTOMATED)2021-07-11 21:04:12 Test Item Value Reference Range Interpretation Comments POCT GLU (test code = 7652291345) 242 mg/dL 70-110 H Lab Interpretation (test code = Abnormal 71058-4) [facility] (62238)(TOTAL CHOLESTEROL, TRIGLYCERIDES, HDL)2021-07-11 20:30:21 Test Item Value Reference Range Interpretation Comments CHOL (test code = 252 mg/dL 120-200 H 2442074845) HDL (test code = 26 mg/dL >40 L 0333018833) HDLC RATIO (test code = See_Comment H [Au tomated message] 6079738943) The system [employer] generated this result transmitted ref erence range: <=5.0. T he reference range was not used to int erpret this result as normal/abnormal . TRIG (test code = 895 mg/dL 30-170 H 3718741834) LDL CHOL (test code = Unable to calculate 05781-1) LDL due to elev ated triglyceride [place] greater than 40 0 mg/dL. VLDL (test code = Unable to calculate 3229157329) VLDL due to era vated triglyceride [place] greater than 71 0 mg/dL. Lab Interpretation Abnormal (test code = 28474-9) [facility] GLUCOSE (AUTOMATED)2021-07-11 20:07:28 Test Item Value Reference Range Interpretation Comments POCT GLU (test code = 0840972443) 215 mg/dL 70-110 H Lab Interpretation (test code = Abnormal 74563-8) [facility] GLUCOSE (AUTOMATED)2021-07-11 19:02:07 Test Item Value Reference Range Interpretation Comments POCT GLU (test code = 3112803066) 203 mg/dL 70-110 H Lab Interpretation (test code = Abnormal 61913-9) [facility] GLUCOSE (AUTOMATED)2021-07-11 17:57:20 Test Item Value Reference Range Interpretation Comments POCT GLU (test code = 0608831900) 248 mg/dL 70-110 H Lab Interpretation (test code = Abnormal 08195-8) [facility] GLUCOSE (AUTOMATED)2021-07-11 17:02:55 Test Item Value Reference Range Interpretation Comments POCT GLU (test code = 0775578387) 270 mg/dL 70-110 H Lab Interpretation (test code = Abnormal 33520-7) [facility] GLUCOSE (AUTOMATED)2021-07-11 16:04:26 Test Item Value Reference Range Interpretation Comments POCT GLU (test code = 0942624856) 245 mg/dL 70-110 H Lab Interpretation (test code = Abnormal 63809-2) [facility] GLUCOSE (AUTOMATED)2021-07-11 15:02:42 Test Item Value Reference Range Interpretation Comments POCT GLU (test code = 0205190803) 244 mg/dL 70-110 H Lab Interpretation (test code = Abnormal 35478-6) [facility] GLUCOSE (AUTOMATED)2021-07-11 14:13:22 Test Item Value Reference Range Interpretation Comments POCT GLU (test code = 0724623327) 210 mg/dL 70-110 H Lab Interpretation (test code = Abnormal 96549-8) [facility] (17122)(TOTAL CHOLESTEROL, TRIGLYCERIDES, HDL)2021-07-11 13:40:22 Test Item Value Reference Range Interpretation Comments CHOL (test code = 269 mg/dL 120-200 H 5687600082) HDL (test code = 27 mg/dL >40 L 2694960137) HDLC RATIO (test code = See_Comment H [Au tomated message] 2615097820) The system [employer] generated this result transmit heriberto reference range : <=5.0. The refe rence range was not u sed to interpret th is result as normal/abnormal . TRIG (test code = 1000 mg/dL 30-170 H 8654899749) LDL CHOL (test code = Unable to calculate 99059-5) LDL due to elev ated triglyceride [place] greater than 40 0 mg/dL. VLDL (test code = Unable to calculate 3895180599) VLDL due to era vated triglyceride [place] greater than 71 0 mg/dL. Lab Interpretation Abnormal (test code = 19062-9) [facility] NortheastLactic Acid Whole [id number] 13:27:53 Test Item Value Reference Range Interpretation Comments LACTIC ACID (test code = 0.79 mmol/L 0.50-2.20 1936760344) Lab Interpretation (test code = Normal 22651-2) [facility] GLUCOSE (AUTOMATED)2021-07-11 13:24:12 Test Item Value Reference Range Interpretation Comments POCT GLU (test code = 6396122213) 216 mg/dL 70-110 H Lab Interpretation (test code = Abnormal 41737-8) [facility] GLUCOSE (AUTOMATED)2021-07-11 13:22:07 Test Item Value Reference Range Interpretation Comments POCT GLU (test code = 6457079981) 595 mg/dL 70-110 HH Lab Interpretation (test code = Abnormal 60880-8) [facility] LIPOPROTEIN, [id number] 12:08:44 Test Item Value Reference Range Interpretation Comments dLDL Chol (test code = <30 See_Comment [Aut omated message] 07874-1) The system [employer] generated this result transmitted ref erence range: <130 mg/ dL. The reference range was not used to int erpret this result as normal/abnormal . Lab Interpretation (test Normal code = 70505-6) [facility]2021-07-11 12:05:18 Test Item Value Reference Range Interpretation Comments POCT GLU (test code = 4913089997) 179 mg/dL 70-110 H Lab Interpretation (test code = Abnormal 80211-1) [facility] METABOLIC PANEL (NA, K, CL, CO2, GLUCOSE, BUN, CREATININE, CA)2021-07-11 11:13:21 Test Item Value Reference Range Interpretation Comments NA (test code = 136 mmol/L 135-145 1052730853) K (test code = 3.7 mmol/L 3.5-5.0 1619328045) CL (test code = 107 mmol/L 98-108 7266471634) CO2 TOTAL (test code = 23 mmol/L 23-31 4378067577) AGAP (test code = 2-16 2945223108) BUN (test code = 5 mg/dL 7-23 L 4376378487) GLUCOSE (test code = 134 mg/dL 70-110 H 9314063421) CREATININE (test code = 0.56 mg/dL 0.60-1.25 L 7517757110) CALCIUM (test code = 8.2 mg/dL 8.6-10.6 L 2628048599) eGFR (test code = mL/min/1.73m2 3393208309) VAHID (test code = VAHID) Association of Glomerular Filtration Rate (GFR) and Staging of Kidney Disease* + --+ --+ ------+| GFR (mL/min/1.73 m2) ?| With Kidney Damage ?| ?Without Kidney Damage+ --------+ --------+ +| ?>90 ?| ?Stage one ?| ? Normal ?+ ---+ ---+ -------+| ?60-89 ?| ?Stage two ?| ? Decreased GFR ? + --+ --+ ------+| ?30-59 ?| ?Stage three ?| ? Stage three ? + --+ --+ ------+| ?15-29 ?| ?Stage four ? | ? Stage four ?+ ---+ ---+ -------+| ?<15 (or dialysis) ? ?| ?Stage five ? | ? Stage five ?+ ---+ ---+ -------+ *Each stage assumes the associated GFR level has been in effect for at least three months. ?Stages 1 to 5, with or without kidney disease, indicate chronic kidney disease. Notes: Determination of stages one and two (with eGFR >59mL/min/1.73 m2) requires estimation of kidney damage for at least three months as defined by structural or functional abnormalities of the kidney, manifested by either:Pathological abnormalities or Markers of kidney damage (including abnormalities in the composition of the blood or urine or abnormalities in imaging tests). Lab Interpretation Abnormal (test code = 26540-2) [facility] 11:13:21 Test Item Value Reference Range Interpretation Comments MAGNESIUM (test code = 6841284230) 1.7 mg/dL 1.7-2.4 Lab Interpretation (test code = Normal 80191-3) [facility] NortheastHEPAT[facility] FUN[facility] (97620[facility] (ALB,T.PRO,BILI T,BU/BC,ALT,AST,ALK PHOS)2021-07-11 11:13:21 Test Item Value Reference Range Interpretation Comments TOTAL BILI (test code = 9683271106) 0.8 mg/dL 0.1-1.1 BILI UNCON (test code = 9935644236) 0.5 mg/dL 0.1-1.1 BILI CONJ (test code = 3199983526) 0.0 mg/dL 0.0-0.3 T PROTEIN (test code = 4708237871) 5.8 g/dL 6.3-8.2 L ALBUMIN (test code = 7889087269) 3.3 g/dL 3.5-5.0 L ALK PHOS (test code = 3810885347) 65 U/L 34-122 ALTv (test code = 1742-6) 17 U/L 5-50 AST(SGOT) (test code = 9712891494) 19 U/L 13-40 Lab Interpretation (test code = Abnormal 37181-8) [facility]2021-[facility]11 11:01:11 Test Item Value Reference Range Interpretation Comments POCT GLU (test code = 6078453368) 158 mg/dL 70-110 H Lab Interpretation (test code = Abnormal 62309-1) [facility] WITH [id number] 10:28:11 Test Item Value Reference Range Interpretation Comments WBC (test code = See_Comment [Automated 6690-2) message] The sy stem which generated this result transmitted reference range : 4.20 - 10.70 10*3/?L. The reference range was not used to interpret this result as normal/abnormal . RBC (test code = See_Comment L [Automated 789-8) message] The sy stem which generated this result transmitted reference range : 4.26 - 5.52 10*6/?L. The reference range was not used to interpret this result as normal/abnormal . HGB (test code = 12.3 g/dL 12.2-16.4 718-7) HCT (test code = 36.0 % 38.4-49.3 L 4544-3) MCV (test code = 85.9 fL 81.7-95.6 787-2) MCH (test code = 29.4 pg 26.1-32.7 785-6) MCHC (test code = 34.2 g/dL 31.2-35.0 786-4) RDW-SD (test code = 39.4 fL 38.5-51.6 52705-2) RDW-CV (test code = 12.6 % 12.1-15.4 788-0) PLT (test code = See_Comment L [Automated 777-3) message] The sy stem which generated this result transmitted reference range : 150 - 328 10*3/ ?L. The reference r keanu was not used to interpret this result as normal/abnormal . MPV (test code = 11.7 fL 9.8-13.0 04688-8) NRBC/100 WBC (test See_Comment [Automat ed code = 5247986509) message] The system which generated this result transmitted reference range : 0.0 - 10.0 /100 WBCs. The refer ence range was not u sed to interpret th is result as normal/abnormal . NRBC x10^3 (test code <0.01 See_Comment [Auto mated = 6626077792) message] The s ystem which generated this result transmitted reference range : 10*3/?L. The reference range was not used to interpret this result as normal/abnormal . GRAN MAT (NEUT) % 66.3 % (test code = 770-8) IMM GRAN % (test code 0.60 % = 5740510265) LYMPH % (test code = 22.9 % 736-9) MONO % (test code = 7.7 % 5905-5) EOS % (test code = 2.0 % 713-8) BASO % (test code = 0.5 % 706-2) GRAN MAT x10^3(ANC) 4.23 10*3/uL 1.99-6.95 (test code = 7662143645) IMM GRAN x10^3 (test 0.04 10*3/uL 0.00-0.06 code = 7406439170) LYMPH x10^3 (test code 1.46 10*3/uL 1.09-3.23 = 731-0) MONO x10^3 (test code 0.49 10*3/uL 0.36-1.02 = 742-7) EOS x10^3 (test code = 0.13 10*3/uL 0.06-0.53 711-2) BASO x10^3 (test code 0.03 10*3/uL 0.01-0.09 = 704-7) Lab Interpretation Abnormal (test code = 34346-9) [facility] GLUCOSE (AUTOMATED)2021-07-11 10:08:52 Test Item Value Reference Range Interpretation Comments POCT GLU (test code = 4360599809) 149 mg/dL 70-110 H Lab Interpretation (test code = Abnormal 89156-5) [facility] GLUCOSE (AUTOMATED)2021-07-11 09:11:24 Test Item Value Reference Range Interpretation Comments POCT GLU (test code = 2031752462) 135 mg/dL 70-110 H Lab Interpretation (test code = Abnormal 03905-9) [facility] GLUCOSE (AUTOMATED)2021-07-11 07:20:53 Test Item Value Reference Range Interpretation Comments POCT GLU (test code = 6899380792) 110 mg/dL 70-110 Lab Interpretation (test code = Normal 81868-1) [facility] GLUCOSE (AUTOMATED)2021-07-11 06:27:21 Test Item Value Reference Range Interpretation Comments POCT GLU (test code = 4681379288) 90 mg/dL 70-110 Lab Interpretation (test code = Normal 80989-1) [facility] GLUCOSE (AUTOMATED)2021-07-11 05:22:34 Test Item Value Reference Range Interpretation Comments POCT GLU (test code = 0474074105) 122 mg/dL 70-110 H Lab Interpretation (test code = Abnormal 00663-0) [facility]IN, [id number] 05:20:19 Test Item Value Reference Range Interpretation Comments dLDL Chol (test code = <30 See_Comment [Aut omated message] 72728-2) The system [employer] generated this result transmitted ref erence range: <130 mg/ dL. The reference range was not used to int erpret this result as normal/abnormal . Lab Interpretation (test Normal code = 48606-5) [facility] NortheastLIPID [facility] (37006)(TOTAL CHOLESTEROL, TRIGLYCERIDES, HDL)2021-07-11 04:52:17 Test Item Value Reference Range Interpretation Comments CHOL (test code = 291 mg/dL 120-200 H 3391644867) HDL (test code = 28 mg/dL >40 L 0702318210) HDLC RATIO (test code = See_Comment H [Au tomated message] 4268416769) The system [employer] generated this result transmit heriberto reference range : <=5.0. The refe rence range was not u sed to interpret th is result as normal/abnormal . TRIG (test code = 1374 mg/dL 30-170 H 5663153186) LDL CHOL (test code = Unable to calculate 18643-6) LDL due to elev ated triglyceride [place] greater than 40 0 mg/dL. VLDL (test code = Unable to calculate 8236200411) VLDL due to era vated triglyceride [place] greater than 71 0 mg/dL. Lab Interpretation Abnormal (test code = 41393-9) [facility] GLUCOSE (AUTOMATED)2021-07-11 04:00:23 Test Item Value Reference Range Interpretation Comments POCT GLU (test code = 2054701623) 183 mg/dL 70-110 H Lab Interpretation (test code = Abnormal 98867-5) [facility] 03[facility]36 Test Item Value Reference Range Interpretation Comments MAGNESIUM (test code = 2130686918) 1.6 mg/dL 1.7-2.4 L Lab Interpretation (test code = Abnormal 15677-7) [facility] METABOLIC PANEL (NA, K, CL, CO2, GLUCOSE, BUN, CREATININE, CA)2021-07-11 03:49:35 Test Item Value Reference Range Interpretation Comments NA (test code = 131 mmol/L 135-145 L 4356759603) K (test code = 4.4 mmol/L 3.5-5.0 Slight 6658290319) hemolysis CL (test code = 101 mmol/L 98-108 9713241446) CO2 TOTAL (test code 22 mmol/L 23-31 L = 3660351281) AGAP (test code = 2-16 9025305859) BUN (test code = 6 mg/dL 7-23 L Slight 5891760075) hemolysis GLUCOSE (test code = 163 mg/dL 70-110 H 7125864115) CREATININE (test code 0.54 mg/dL 0.60-1.25 L = 1100225289) CALCIUM (test code = 8.4 mg/dL 8.6-10.6 L 2199306663) eGFR (test code = mL/min/1.73m2 5477979870) VAHID (test code = VAHID) Association of Glomerular Filtration Rate (GFR) and Staging of Kidney Disease* + -----+ --------+ +| GFR (mL/min/1.73 m2) ?| With Kidney Damage ?| ?Without Kidney Damage+ +------- +---- --+| ?>90 ?| ?Stage one ?| ? Normal ?+ ------+ ---------+--------- +| ?60-89 ?| ?Stage two ?| ? Decreased GFR ? + -----+ --------+ +| ?30-59 ?| ?Stage three ?| ? Stage three ? + -----+ --------+ +| ?15-29 ?| ?Stage four ? | ? Stage four ?+ ------+ ---------+--------- +| ?<15 (or dialysis) ? ?| ?Stage five ? | ? Stage five ?+ ------+ ---------+--------- + *Each stage assumes the associated GFR level has been in effect for at least three months. ?Stages 1 to 5, with or without kidney disease, indicate chronic kidney disease. Notes: Determination of stages one and two (with eGFR >59mL/min/1.73 m2) requires estimation of kidney damage for at least three months as defined by structural or functional abnormalities of the kidney, manifested by either:Pathological abnormalities or Markers of kidney damage (including abnormalities in the composition of the blood or urine or abnormalities in imaging tests). Lab Interpretation Abnormal (test code = 26709-4) [facility] (ALB,T.PRO,BILI T,BU/BC,ALT,AST,ALK PHOS)2021-07-11 03:49:35 Test Item Value Reference Range Interpretation Comments TOTAL BILI (test code = 2835096409) 1.3 mg/dL 0.1-1.1 H BILI UNCON (test code = 8804486875) 0.9 mg/dL 0.1-1.1 BILI CONJ (test code = 0129470682) 0.0 mg/dL 0.0-0.3 T PROTEIN (test code = 2412492735) 7.0 g/dL 6.3-8.2 ALBUMIN (test code = 0371853417) 4.0 g/dL 3.5-5.0 ALK PHOS (test code = 0804707844) 77 U/L 34-122 ALTv (test code = 1742-6) 20 U/L 5-50 AST(SGOT) (test code = 6560826471) 34 U/L 13-40 Lab Interpretation (test code = Abnormal 68089-1) [facility] WITH [id number] 03:08:52 Test Item Value Reference Range Interpretation Comments WBC (test code = See_Comment [Automated 7294-2) message] The sy stem which generated this result transmitted reference range : 4.20 - 10.70 10*3/?L. The reference range was not used to interpret this result as normal/abnormal . RBC (test code = See_Comment [Automated 638-8) message] The sy stem which generated this result transmitted reference range : 4.26 - 5.52 10*6/?L. The reference range was not used to interpret this result as normal/abnormal . HGB (test code = 14.1 g/dL 12.2-16.4 718-7) HCT (test code = 41.7 % 38.4-49.3 4544-3) MCV (test code = 84.9 fL 81.7-95.6 787-2) MCH (test code = 28.7 pg 26.1-32.7 785-6) MCHC (test code = 33.8 g/dL 31.2-35.0 786-4) RDW-SD (test code = 39.0 fL 38.5-51.6 37749-6) RDW-CV (test code = 12.7 % 12.1-15.4 788-0) PLT (test code = See_Comment [Automated 777-3) message] The sy stem which generated this result transmitted reference range : 150 - 328 10*3/ ?L. The reference r keanu was not used to interpret this result as normal/abnormal . MPV (test code = 12.2 fL 9.8-13.0 91747-7) NRBC/100 WBC (test See_Comment [Automat ed code = 3097299380) message] The system which generated this result transmitted reference range : 0.0 - 10.0 /100 WBCs. The refer ence range was not u sed to interpret th is result as normal/abnormal . NRBC x10^3 (test code <0.01 See_Comment [Auto mated = 9644646095) message] The s ystem which generated this result transmitted reference range : 10*3/?L. The reference range was not used to interpret this result as normal/abnormal . GRAN MAT (NEUT) % 75.0 % (test code = 770-8) IMM GRAN % (test code 0.60 % = 0087168036) LYMPH % (test code = 15.4 % 736-9) MONO % (test code = 7.5 % 5905-5) EOS % (test code = 1.1 % 713-8) BASO % (test code = 0.4 % 706-2) GRAN MAT x10^3(ANC) 7.18 10*3/uL 1.99-6.95 H (test code = 1693575112) IMM GRAN x10^3 (test 0.06 10*3/uL 0.00-0.06 code = 3018039601) LYMPH x10^3 (test code 1.48 10*3/uL 1.09-3.23 = 731-0) MONO x10^3 (test code 0.72 10*3/uL 0.36-1.02 = 742-7) EOS x10^3 (test code = 0.11 10*3/uL 0.06-0.53 711-2) BASO x10^3 (test code 0.04 10*3/uL 0.01-0.09 = 704-7) Lab Interpretation Abnormal (test code = 68585-6) [facility] GLUCOSE (AUTOMATED)2021-07-11 02:57:40 Test Item Value Reference Range Interpretation Comments POCT GLU (test code = 5894325872) 162 mg/dL 70-110 H Lab Interpretation (test code = Abnormal 09149-0) [facility] GLUCOSE (AUTOMATED)2021-07-10 21:34:25 Test Item Value Reference Range Interpretation Comments POCT GLU (test code = 9979619307) 161 mg/dL 70-110 H Lab Interpretation (test code = Abnormal 02988-4) [facility] 21:18:26 Test Item Value Reference Range Interpretation Comments TRIG (test code = 4013401620) >1575 30-170 H Lab Interpretation (test code = Abnormal 80332-8) [facility] GLUCOSE (AUTOMATED)2021-07-10 16:53:15 Test Item Value Reference Range Interpretation Comments POCT GLU (test code = 4720258607) 221 mg/dL 70-110 H Lab Interpretation (test code = Abnormal 81145-2) [facility] (NA, K, CL, CO2, GLUCOSE, BUN, CREATININE, CA)2021-07-10 10:25:09 Test Item Value Reference Range Interpretation Comments NA (test code = 131 mmol/L 135-145 L 5763180752) K (test code = 3.8 mmol/L 3.5-5.0 8022296533) CL (test code = 103 mmol/L 98-108 8674944821) CO2 TOTAL (test code = 22 mmol/L 23-31 L 9333922343) AGAP (test code = 2-16 1039833998) BUN (test code = 5 mg/dL 7-23 L 1710604881) GLUCOSE (test code = 208 mg/dL 70-110 H 3222314280) CREATININE (test code = 0.39 mg/dL 0.60-1.25 L 8702071012) CALCIUM (test code = 8.2 mg/dL 8.6-10.6 L 1964691768) eGFR (test code = mL/min/1.73m2 1754335448) VAHID (test code = VAHID) Association of Glomerular Filtration Rate (GFR) and Staging of Kidney Disease* + --+ --+ ------+| GFR (mL/min/1.73 m2) ?| With Kidney Damage ?| ?Without Kidney Damage+ --------+ --------+ +| ?>90 ?| ?Stage one ?| ? Normal ?+ ---+ ---+ -------+| ?60-89 ?| ?Stage two ?| ? Decreased GFR ? + --+ --+ ------+| ?30-59 ?| ?Stage three ?| ? Stage three ? + --+ --+ ------+| ?15-29 ?| ?Stage four ? | ? Stage four ?+ ---+ ---+ -------+| ?<15 (or dialysis) ? ?| ?Stage five ? | ? Stage five ?+ ---+ ---+ -------+ *Each stage assumes the associated GFR level has been in effect for at least three months. ?Stages 1 to 5, with or without kidney disease, indicate chronic kidney disease. Notes: Determination of stages one and two (with eGFR >59mL/min/1.73 m2) requires estimation of kidney damage for at least three months as defined by structural or functional abnormalities of the kidney, manifested by either:Pathological abnormalities or Markers of kidney damage (including abnormalities in the composition of the blood or urine or abnormalities in imaging tests). Lab Interpretation Abnormal (test code = 43905-2) [facility] [id number] 10:25:09 Test Item Value Reference Range Interpretation Comments MAGNESIUM (test code = 8388113720) 1.7 mg/dL 1.7-2.4 Lab Interpretation (test code = Normal 56185-2) [facility]58480[facility] (ALB,T.PRO,BILI T,BU/BC,ALT,AST,ALK PHOS)2021-07-10 10:25:09 Test Item Value Reference Range Interpretation Comments TOTAL BILI (test code = 8308294744) 1.0 mg/dL 0.1-1.1 BILI UNCON (test code = 2360864524) 0.6 mg/dL 0.1-1.1 BILI CONJ (test code = 2327870545) 0.0 mg/dL 0.0-0.3 T PROTEIN (test code = 6052423328) 6.8 g/dL 6.3-8.2 ALBUMIN (test code = 6012504863) 3.6 g/dL 3.5-5.0 ALK PHOS (test code = 4951468126) 78 U/L 34-122 ALTv (test code = 1742-6) 22 U/L 5-50 AST(SGOT) (test code = 3995795971) 20 U/L 13-40 Lab Interpretation (test code = Normal 68642-6) [facility] [id number] 09:48:23 Test Item Value Reference Range Interpretation Comments WBC (test code = See_Comment H [Automated 4190-2) message] The sy stem which generated this result transmitted reference range : 4.20 - 10.70 10*3/?L. The reference range was not used to interpret this result as normal/abnormal . RBC (test code = See_Comment [Automated 279-8) message] The sy stem which generated this result transmitted reference range : 4.26 - 5.52 10*6/?L. The reference range was not used to interpret this result as normal/abnormal . HGB (test code = 14.6 g/dL 12.2-16.4 718-7) HCT (test code = 40.7 % 38.4-49.3 4544-3) MCV (test code = 81.7 fL 81.7-95.6 787-2) MCH (test code = 29.3 pg 26.1-32.7 785-6) MCHC (test code = 35.9 g/dL 31.2-35.0 H 786-4) RDW-SD (test code = 36.7 fL 38.5-51.6 L 75578-8) RDW-CV (test code = 12.3 % 12.1-15.4 788-0) PLT (test code = See_Comment L [Automated 777-3) message] The sy stem which generated this result transmitted reference range : 150 - 328 10*3/ ?L. The reference r keanu was not used to interpret this result as normal/abnormal . MPV (test code = 11.5 fL 9.8-13.0 42597-6) NRBC/100 WBC (test See_Comment [Automat ed code = 5289447273) message] The system which generated this result transmitted reference range : 0.0 - 10.0 /100 WBCs. The refer ence range was not u sed to interpret th is result as normal/abnormal . NRBC x10^3 (test code <0.01 See_Comment [Auto mated = 3533866149) message] The s ystem which generated this result transmitted reference range : 10*3/?L. The reference range was not used to interpret this result as normal/abnormal . GRAN MAT (NEUT) % 79.1 % (test code = 770-8) IMM GRAN % (test code 0.60 % = 5313164277) LYMPH % (test code = 11.9 % 736-9) MONO % (test code = 7.3 % 5905-5) EOS % (test code = 0.8 % 713-8) BASO % (test code = 0.3 % 706-2) GRAN MAT x10^3(ANC) 9.27 10*3/uL 1.99-6.95 H (test code = 0122606271) IMM GRAN x10^3 (test 0.07 10*3/uL 0.00-0.06 H code = 5699538657) LYMPH x10^3 (test code 1.40 10*3/uL 1.09-3.23 = 731-0) MONO x10^3 (test code 0.86 10*3/uL 0.36-1.02 = 742-7) EOS x10^3 (test code = 0.09 10*3/uL 0.06-0.53 711-2) BASO x10^3 (test code 0.03 10*3/uL 0.01-0.09 = 704-7) Lab Interpretation Abnormal (test code = 09453-9) [facility] GLUCOSE (AUTOMATED)2021-07-10 01:24:22 Test Item Value Reference Range Interpretation Comments POCT GLU (test code = 3664654273) 218 mg/dL 70-110 H Lab Interpretation (test code = Abnormal 89702-0) [facility] GLUCOSE (AUTOMATED)2021-07-09 22:54:50 Test Item Value Reference Range Interpretation Comments POCT GLU (test code = 2301061537) 228 mg/dL 70-110 H Lab Interpretation (test code = Abnormal 36043-0) [facility]LOW-DENSITY LIPOPROTEIN, [id number] 20:41:35 Test Item Value Reference Range Interpretation Comments dLDL Chol (test code = <30 See_Comment [Aut omated message] 14755-2) The system [employer] generated this result transmitted ref erence range: <130 mg/ dL. The reference range was not used to int erpret this result as normal/abnormal . Lab Interpretation (test Normal code = 46728-9) [facility] NortheastLIP[facility] (69086)(TOTAL CHOLESTEROL, TRIGLYCERIDES, HDL)2021-07-09 20:11:31 Test Item Value Reference Range Interpretation Comments CHOL (test code = 275 mg/dL 120-200 H 2103457678) HDL (test code = 19 mg/dL >40 L 9127261095) HDLC RATIO (test code = See_Comment H [Au tomated message] 0577840434) The system [employer] generated this result transmitted ref erence range: <=5.0. T he reference range was not used to int erpret this result as normal/abnormal . TRIG (test code = >1050 30-170 H 0152734316) LDL CHOL (test code = Unable to calculate 09897-4) LDL due to elev ated triglyceride [place] greater than 40 0 mg/dL. VLDL (test code = Unable to calculate 8925277572) VLDL due to era vated triglyceride [place] greater than 71 0 mg/dL. Lab Interpretation Abnormal (test code = 96515-2) [facility]YCOSYLATED HEMOGLOBIN (A1C)2021-07-09 19:26:13 Test Item Value Reference Range Interpretation Comments HGB A1C (test code = 11.3 % 4.0-5.7 H 4548-4) VAHID (test code = VAHID) Reference RangesNormal: <5.7%Prediabetes: 5.7 - 6.4%Diabetes: > 6.5% Lab Interpretation (test Abnormal code = 52161-0) [facility]2022-[facility]-30 19:17:47 Test Item Value Reference Range Interpretation Comments MAGNESIUM (test code = 7690027929) 1.4 mg/dL 1.7-2.4 L Lab Interpretation (test code = Abnormal 07177-6) [facility]OS[facility]US2022-03-30 19:17:47 Test Item Value Reference Range Interpretation Comments PHOSPHORUS (test code = 2346713322) 3.5 mg/dL 2.5-5.0 Lab Interpretation (test code = Normal 82140-7) [facility]2021-07-09 15:20:32 Test Item Value Reference Range Interpretation Comments POCT GLU (test code = 8673531636) 291 mg/dL 70-110 H Lab Interpretation (test code = Abnormal 51943-7) [facility]2022-[facility] 14:16:26 Test Item Value Reference Range Interpretation Comments LIPASE (test code = 6360403437) 2975 U/L 0-220 H Lab Interpretation (test code = Abnormal 25376-5) [facility] METABOLIC PANEL (66141)2021-07-09 14:01:38 Test Item Value Reference Range Interpretation Comments NA (test code = 134 mmol/L 135-145 L 0094039223) K (test code = 4.2 mmol/L 3.5-5.0 6150984135) CL (test code = 102 mmol/L 98-108 9409924006) CO2 TOTAL (test code = 21 mmol/L 23-31 L 9411385351) AGAP (test code = 2-16 4237003437) BUN (test code = 9 mg/dL 7-23 1920328653) GLUCOSE (test code = 324 mg/dL 70-110 H 3532948352) CREATININE (test code = 0.46 mg/dL 0.60-1.25 L 3406251128) TOTAL BILI (test code = 0.7 mg/dL 0.1-1.8 7399564272) CALCIUM (test code = 8.5 mg/dL 8.6-10.6 L 0924385848) T PROTEIN (test code = 7.3 g/dL 6.3-8.2 5997318685) ALBUMIN (test code = 4.2 g/dL 3.5-5.0 8838229574) ALK PHOS (test code = 90 U/L 34-122 1227398758) ALTv (test code = 29 U/L 5-50 1742-6) AST(SGOT) (test code = 27 U/L 13-40 8498874046) eGFR (test code = mL/min/1.73m2 0202668810) VAHID (test code = VAHID) Association of Glomerular Filtration Rate (GFR) and Staging of Kidney Disease* + --+ --+ ------+| GFR (mL/min/1.73 m2) ?| With Kidney Damage ?| ?Without Kidney Damage+ --------+ --------+ +| ?>90 ?| ?Stage one ?| ? Normal ?+ ---+ ---+ -------+| ?60-89 ?| ?Stage two ?| ? Decreased GFR ? + --+ --+ ------+| ?30-59 ?| ?Stage three ?| ? Stage three ? + --+ --+ ------+| ?15-29 ?| ?Stage four ? | ? Stage four ?+ ---+ ---+ -------+| ?<15 (or dialysis) ? ?| ?Stage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
[2022-06-11 12:07] LABS: Absolute Lymphocytes (CBC) 1.3 K/uL (0.7-4.9); Lymphocytes % 11.2 % (15.3-44.8); MCV 86.6 fL (80-100); RBC Red Blood Cell Count 5.32 M/uL (4.33-5.43)
--- NOTE | 2022-06-11 12:41 | RAD REPORT ---
EXAM DESCRIPTION: US - Abdomen Exam Limited - 06/11/2022 12:20 pm CLINICAL HISTORY: ABD PAIN COMPARISON: No comparisons FINDINGS: Negative for cholelithiasis. No gallbladder wall thickening. The common bile duct measures 4 millimeters. Hepatic steatosis is noted with fatty sparing along the gallbladder fossa. Negative s onographic Santos's sign. IMPRESSION: Negative for cholelithiasis or acute cholecystitis. Hepatic steatosis with fatty sparing at the gallbladder fossa.
[2022-06-11] MEDS ORDERED: ONDANSETRON 4 MG/2 ML VIAL ONE (12:57)
[2022-06-11] MEDS ORDERED: MORPHINE 4 MG/ML SYR ONE ×2 (12:57→15:28)
[2022-06-11] MEDS ORDERED: NA CHLORIDE 0.9% 1,000 ML ONE (12:57)
[2022-06-11] MEDS ORDERED: FAMOTIDINE 20 MG/2 ML VIAL IV ONE (12:57)
[2022-06-11 13:50] LABS: Albumin 3.8 g/dL (3.4-5.0); Bilirubin Total 0.5 mg/dL (0.2-1.0); Protein, Total 7.7 g/dL (6.4-8.2)
[2022-06-11 13:53] LABS: Potassium 4.5 mmol/L (3.5-5.1)
[2022-06-11] MEDS ORDERED: INSULIN -REGULAR HUMAN 50 UNIT/0.5 ML ML ONE (14:08)
--- NOTE | 2022-06-11 14:55 | RAD REPORT ---
EXAM DESCRIPTION: CT - Abdomen Pelvis W Contrast - 06/11/2022 2:32 pm CLINICAL HISTORY: ABD PAIN, right upper quadrant COMPARISON: Abdomen Exam Limited dated 06/11/2022 TECHNIQUE: Thin cut axial CT imaging of the abdomen and pelvis was performed following intravenous a dministration of 95 mL Isovue 300. Multiplanar reformats were generated and reviewed. All CT scans are performed using dose optimization technique as appropriate and may include automated exposure control or mA/KV adjustment according to patient size. FINDINGS: No suspicious findings in the lung bases. Diffuse hepatic parenchymal hypoattenuation suggesting steatosis. The liver, spleen, and gallbladder show no under suspicious findings. Intra and extrahepatic bile ducts R also without suspicious findin g. Pronounced inflammatory stranding along the pancreatic head, neck, and adjacent second and third part of the duodenum. Small regions of signal heterogeneity and relative internal hypoattenuation, the la rgest in the uncinate process, measuring 1.5 centimeter in greatest dimension. Symmetric renal function is seen with no hydronephrosis or suspicious renal mass. Subcentimeter right renal midpole parenchymal fluid density cyst. No dilated bowel loops or bowel wall thickening. No free air, free fluid or inflammatory stranding. N o hernia, mass or bulky lymphadenopathy. The urinary bladder is without significant finding. No suspicious bony findings. IMPRESSION: Acute pancreatitis involving the pancreatic head and neck. Adjacent duodenitis. Suggesti on of small early intrapancreatic cysts, the largest in the region of the uncinate process measuring 1.5 centimeter. The findings were communicated to Marcia Barrientos on 06/11/2022 at 14:50 hours.
--- NOTE | 2022-06-11 15:31 | EDPHYS ---
Physician Documentation [facility] Name: Levy Sanchez Age: 37 yrs Sex: Male : 1985 Arrival Date: 06/11/2022 Time: 11:41 Bed 6 Private MD: ED Physician Ming Israel HPI: 06/11 14:39 This 37 yrs old Male presents to ER via Ambulatory with complaints of Abdominal Pain. kb 14:39 The patient presents with abdominal pain. Onset: The symptoms/episode began/occurred kb this morning. The symptoms do not radiate. Associated signs and symptoms: Pertinent positives: nausea and vomiting, Pertinent negatives: fever. The symptoms are described as constant. Modifying factors: The symptoms are alleviated by nothing, the symptoms are aggravated by nothing. Severity of pain: At its worst the pain was mild in the emergency department the pain is unchanged. The patient has experienced similar episodes in the past, a few times. The patient has not recently seen a physician. Historical: - Allergies: 11:42 PENICILLINS; aa5 11:42 SHELLFISH; aa5 - PMHx: 11:42 Pancreatitis; Diabetes mellitus; high tryglycerides; Depressive disorder; Anxiety; aa5 asperger's syndrome; - PSHx: 11:42 ear tubes; aa5 - Immunization history:: Adult Immunizations unknown. - Social history:: Smoking status: Patient denies any tobacco usage or history of. ROS: 14:38 Constitutional: Negative for fever, chills, and weight loss. kb 14:38 Abdomen/GI: Positive for abdominal pain, nausea and vomiting, Negative for diarrhea, constipation. 14:38 All other systems are negative. Exam: 14:38 Constitutional: This is a well developed, well nourished patient who is awake, alert, kb and in no acute distress. Head/Face: Normocephalic, atraumatic. ENT: Moist Mucous membranes Cardiovascular: Regular rate and rhythm with a normal S1 and S2. No gallops, murmurs, or rubs. No pulse deficits. Respiratory: Respirations even and unlabored. No increased work of breathing. Talking in full sentences Skin: Warm, dry with normal turgor. Normal color. MS/ Extremity: Pulses equal, no cyanosis. Neurovascular intact. Full, normal range of motion. Neuro: Awake and alert, GCS 15, oriented to person, place, time, and situation. Moves all extremities. Normal gait. 14:38 Abdomen/GI: Inspection: abdomen appears normal, Bowel sounds: normal, Palpation: soft, in all quadrants, mild abdominal tenderness, in the right upper quadrant. Vital Signs: 11:42 BP 138 / 90; Pulse 108; Resp 20 S; Temp 97.6(O); Pulse Ox 100% on R/A; Weight 108.41 kg aa5 (R); Height 6 ft. 2 in. (187.96 cm) (R); 13:17 BP 132 / 78; Pulse 81; Resp 16; Pulse Ox 99% on R/A; hb 14:17 BP 133 / 80; Pulse 86; Resp 17; Pulse Ox 99% ; hb 15:21 BP 139 / 88; Pulse 85; Resp 17; Pulse Ox 99% on R/A; hb 16:30 BP 127 / 76; Pulse 87; Resp 18; Pulse Ox 98% on R/A; ph 18:00 BP 131 / 82; Pulse 86; Resp 18; Pulse Ox 99% on R/A; ph 11:42 Body Mass Index 30.69 (108.41 kg, 187.96 cm) aa5 MDM: 11:42 Patient medically screened. kb 14:37 ED course: Patient is a 37-year-old male with a history of pancreatitis due to Hydra kb glycerides that presents for upper abdominal pain, nausea and vomiting that started this morning. On exam patient has mild tenderness to right upper quadrant. Nontoxic in appearance. CT, ultrasound and serum labs ordered. No acute finding on ultrasound, slight elevation in white blood cell count and hyperglycemia on serum labs.. 14:39 Differential diagnosis: cholecystitis, Cholelithiasis, gastritis, gastroesophageal kb reflux disease, non-specific abd pain, pancreatitis. Data reviewed: vital signs, nurses notes. Historians other than the Patient: Spouse/Significant Other: Spouse. Care significantly affected by the following chronic conditions: Diabetes. 15:06 Management of patient was discussed with the following: Dr Lindy GIANG. Recommends kb consult to Annita. Annita called and voicemail left. Discussion of test interpretation with radiology: I had a discussion with radiology regarding a test interpretation. Discussed CT results with Dr Mars. 15:29 Consideration of Admission/Observation Patient was admitted/placed on observation. kb Management of patient was discussed with the following: Hospitalist: Discussed case with Dr. Mendoza again. Recommended insulin drip be started at 2 to 3 units/h.. Counseling: I had a detailed discussion with the patient and/or guardian regarding: the historical points, exam findings, and any diagnostic results supporting the discharge/admit diagnosis, lab results, radiology results, the need for further work-up and treatment in the hospital. 06/11 11:47 Order name: CBC with Diff; Complete Time: 12:09 kb 06/11 11:47 Order name: CMP; Complete Time: 13:53 kb 06/11 11:47 Order name: Lipase; Complete Time: 13:53 kb 06/11 11:47 Order name: Abdomen Limited US; Complete Time: 12:45 kb 06/11 11:47 Order name: IV Saline Lock; Complete Time: 13:16 kb 06/11 11:47 Order name: Labs collected and sent; Complete Time: 13:16 kb 06/11 12:26 Order name: Labs - recollect needed; Complete Time: 13:10 iw 06/11 13:53 Order name: Acetone, Serum; Complete Time: 14:14 kb 06/11 13:54 Order name: CT Abd/Pelvis - IV Contrast Only; Complete Time: 14:57 kb 06/11 15:22 Order name: SARS RAPID; Complete Time: 19:55 ph 06/11 15:26 Order name: Lipid Profile; Complete Time: 16:18 kb 06/11 15:49 Order name: NPO EDMS 06/11 16:03 Order name: LDL, Direct; Complete Time: 16:18 EDMS 06/11 17:52 Order name: Glucose, Ancillary Testing; Complete Time: 17:55 EDMS 06/11 21:11 Order name: Glucose, Ancillary Testing EDMS 06/11 21:59 Order name: Glucose, Ancillary Testing EDMS Administered Medications: 12:58 Drug: NS 0.9% 1000 ml Route: IV; Rate: 1 bolus; Site: right antecubital; hb 13:30 Follow up: Response: No adverse reaction; IV Status: Completed infusion; IV Intake: ph 1000ml 12:58 Drug: Pepcid (famotidine) 20 mg Route: IVP; Site: right antecubital; hb 19:26 Follow up: Response: No adverse reaction ph 12:58 Drug: Zofran (Ondansetron) 4 mg Route: IVP; Site: right antecubital; hb 19:26 Follow up: Response: No adverse reaction ph 12:58 Drug: morphine 4 mg Route: IVP; Infused Over: 4 mins; Site: right antecubital; hb 19:26 Follow up: Response: No adverse reaction; Pain is decreased ph 14:08 Drug: Insulin Regular Human 10 units {Co-Signature: nj1 (Jackeline Mata RN).} Route: IVP; ph Site: right antecubital; 19:25 Follow up: Response: No adverse reaction ph 15:25 Drug: morphine 4 mg Route: IVP; Infused Over: 4 mins; Site: right antecubital; hb 19:23 Follow up: Response: No adverse reaction; Pain is decreased ph 19:43 Drug: Insulin Drip - (Insulin Regular Human 100 units, NS 0.9% 100 ml) {Co-Signature: as6 kd3 (Paula Michaud RN).} Route: IV; Rate: 2 units/hr; Site: right antecubital; Disposition Summary: 06/11/22 15:30 Hospitalization Ordered Hospitalization Status: Inpatient Admission kb Provider: Marcello Israel Location: Intensive Care Unit kb Condition: Stable kb Problem: new kb Symptoms: are unchanged kb Bed/Room Type: Standard Room Assignment: 8-(06/11/22 21:41) cg Diagnosis - Acute pancreatitis without necrosis or infection, unspecified kb - Hyperglycemia, unspecified kb Forms: - Medication Reconciliation Form kb - SBAR form kb Signatures: Dispatcher [employer] Marcia Costello, PATROL OFFICER-C PATROL OFFICER-Ckb Inés Patel RN RN iw Calderon, Audri RN RN oJby Pacheco PATROL OFFICER-C PATROL OFFICER-Cla1 Nakia Petty RN RN ph Garcia, Cindy RN RN Sofia Barr RN RN hb Slawson, Ashby, RN RN as6 Jackeline Mata RN nj1 Paula Michaud RN kd3 Corrections: (The following items were deleted from the chart) 21:41 15:30 kb cg
--- NOTE | 2022-06-11 15:31 | ER ---
Nurse's Notes [facility] Name: Levy Sanchez Age: 37 yrs Sex: Male : 1985 Arrival Date: 06/11/2022 Time: 11:41 Bed 6 Private MD: Diagnosis: Acute pancreatitis without necrosis or infection, unspecified;Hyperglycemia, unspecified Presentation: 06/11 11:42 Chief complaint: Patient states: RUQ pain that began today, vomited twice. aa5 11:42 Coronavirus screen: vomiting. Ebola Screen: Patient denies travel to an Ebola-affected [facility] area in the 21 days before illness onset. Initial Sepsis Screen: Does the patient meet any 2 criteria? HR > 90 bpm. Does the patient have a suspected source of infection? No. Patient's initial sepsis screen is negative. Risk Assessment: Do you want to hurt yourself or someone else? Patient reports no desire to harm self or others. Onset of symptoms was June 11, 2022. 11:42 Acuity: ALINE 3 aa5 11:42 Method Of Arrival: Ambulatory aa5 Historical: - Allergies: 11:42 PENICILLINS; aa5 11:42 SHELLFISH; aa5 - PMHx: 11:42 Pancreatitis; Diabetes mellitus; high tryglycerides; Depressive disorder; Anxiety; aa5 asperger's syndrome; - PSHx: 11:42 ear tubes; aa5 - Immunization history:: Adult Immunizations unknown. - Social history:: Smoking status: Patient denies any tobacco usage or history of. Screenin:17 [facility] ED Fall Risk Assessment (Adult) Score/Fall Risk Level 0 - 2 = Low Risk. Abuse hb screen: Denies threats or abuse. Denies injuries from another. Nutritional screening: No deficits noted. Tuberculosis screening: No symptoms or risk factors identified. Assessment: 12:30 General: Appears in no apparent distress. Behavior is calm, cooperative, appropriate ph for age, Denies fever, feeling ill. Pain: Complains of pain in right upper quadrant. Neuro: Level of Consciousness is awake, alert, obeys commands, Oriented to person, place, time, situation. Cardiovascular: Capillary refill < 3 seconds in bilateral fingers Patient's skin is warm and dry. Respiratory: Airway is patent Respiratory effort is even, unlabored, Respiratory pattern is regular, symmetrical. GI: Abdomen is non-distended, Abd is soft X 4 quads Reports upper abdominal pain, nausea, vomiting. Derm: Skin is healthy with good turgor, Skin is pink, warm \T\ dry. 13:17 Reassessment: Patient appears in no apparent distress at this time. Patient and/or hb family updated on plan of care and expected duration. Pain level reassessed. Patient is alert, oriented x 3, equal unlabored respirations, skin warm/dry/pink. 14:17 Reassessment: Patient appears in no apparent distress at this time. Patient and/or hb family updated on plan of care and expected duration. Pain level reassessed. Patient is alert, oriented x 3, equal unlabored respirations, skin warm/dry/pink. 15:30 Reassessment: Patient appears in no apparent distress at this time. No changes from ph previously documented assessment. Patient and/or family updated on plan of care and expected duration. Pain level reassessed. Patient is alert, oriented x 3, equal unlabored respirations, skin warm/dry/pink. 17:00 Reassessment: Patient appears in no apparent distress at this time. Patient and/or ph family updated on plan of care and expected duration. Pain level reassessed. Patient is alert, oriented x 3, equal unlabored respirations, skin warm/dry/pink. Vital Signs: 11:42 BP 138 / 90; Pulse 108; Resp 20 S; Temp 97.6(O); Pulse Ox 100% on R/A; Weight 108.41 kg aa5 (R); Height 6 ft. 2 in. (187.96 cm) (R); 13:17 BP 132 / 78; Pulse 81; Resp 16; Pulse Ox 99% on R/A; hb 14:17 BP 133 / 80; Pulse 86; Resp 17; Pulse Ox 99% ; hb 15:21 BP 139 / 88; Pulse 85; Resp 17; Pulse Ox 99% on R/A; hb 16:30 BP 127 / 76; Pulse 87; Resp 18; Pulse Ox 98% on R/A; ph 18:00 BP 131 / 82; Pulse 86; Resp 18; Pulse Ox 99% on R/A; ph 11:42 Body Mass Index 30.69 (108.41 kg, 187.96 cm) aa5 ED Course: 11:41 Patient arrived in ED. am2 11:41 Marcia Barrientos FNP-C is [facility]. kb 11:41 Ming Israel MD is Attending Physician. kb 11:42 Arm band placed on Patient placed in an exam room, on a stretcher. aa5 11:43 Nakia Petty RN is Primary Nurse. ph 11:53 Triage completed. aa5 12:22 Abdomen Limited US In Process Unspecified. EDMS 13:00 Inserted saline lock: 20 gauge in right antecubital area, using aseptic technique. ph 14:34 CT Abd/Pelvis - IV Contrast Only In Process Unspecified. EDMS 15:29 Marcello Israel MD is Hospitalizing Provider. kb 19:22 Patient has correct armband on for positive identification. Placed in gown. Bed in low ph position. Call light in reach. Side rails up X 1. Side rails up X2. Pulse ox on. NIBP on. 19:23 No provider procedures requiring assistance completed. Patient admitted, IV remains in ph place. 19:45 Primary Nurse role handed off by Nakia Petty RN wm 21:45 Paula Michaud RN is Primary Nurse. kd3 Administered Medications: 12:58 Drug: NS 0.9% 1000 ml Route: IV; Rate: 1 bolus; Site: right antecubital; hb 13:30 Follow up: Response: No adverse reaction; IV Status: Completed infusion; IV Intake: ph 1000ml 12:58 Drug: Pepcid (famotidine) 20 mg Route: IVP; Site: right antecubital; hb 19:26 Follow up: Response: No adverse reaction ph 12:58 Drug: Zofran (Ondansetron) 4 mg Route: IVP; Site: right antecubital; hb 19:26 Follow up: Response: No adverse reaction ph 12:58 Drug: morphine 4 mg Route: IVP; Infused Over: 4 mins; Site: right antecubital; hb 19:26 Follow up: Response: No adverse reaction; Pain is decreased ph 14:08 Drug: Insulin Regular Human 10 units {Co-Signature: nj1 (Jackeline Mata RN).} Route: IVP; ph Site: right antecubital; 19:25 Follow up: Response: No adverse reaction ph 15:25 Drug: morphine 4 mg Route: IVP; Infused Over: 4 mins; Site: right antecubital; hb 19:23 Follow up: Response: No adverse reaction; Pain is decreased ph 19:43 Drug: Insulin Drip - (Insulin Regular Human 100 units, NS 0.9% 100 ml) {Co-Signature: as6 kd3 (Paula Michaud RN).} Route: IV; Rate: 2 units/hr; Site: right antecubital; Medication: 19:22 VIS not applicable for this client. ph Intake: 13:30 IV: 1000ml; Total: 1000ml. ph Outcome: 15:30 Decision to Hospitalize by Provider. kb 21:49 Condition: stable as6 21:49 Instructed on the need for admit. 22:01 Admitted to ICU accompanied by nurse, via wheelchair, room 8, with chart, Report called as6 to Rita MATIAS 22:02 Patient left the ED. as6 Signatures: Dispatcher [employer] EDMS Marcia Barrientos, WELLNESS COORDINATOR-C WELLNESS COORDINATOR-Korina Rubio, RN RN aa5 Nakia Petty RN RN Sofia Barr, RN RN Sudha Cabral am2 Lyla Eden Jude Swain RN RN as6 Paula Michaud RN RN kd3 Jackeline Mata RN nj1 Paula Michaud RN kd3
[2022-06-11] MEDS ORDERED: ONDANSETRON 4 MG/2 ML VIAL IV PRN (15:43)
[2022-06-11 15:54] LABS: HDL Cholesterol 22 mg/dL (40-60)
--- NOTE | 2022-06-11 15:56 | P.HP ---
Certification for Inpatient Patient admitted to: Inpatient With expected LOS: >2 Midnights Practitioner: I am a practitioner with admitting privileges, knowledge of patient current condition, hospital course, and medical plan of care. Services: Services provided to patient in accordance with Admission requirements found in Title 42 Section 412.3 of the Code of Federal Regulations Patient History Date of Service: 06/11/22 Reason for admission: Acute pancreatitis. History of Present Illness: 37-year-old male patient who has medical history significant for diabetes type 2, hypertension, history of hyperlipidemia and on medication of fenofibrate, atorvastatin who was evaluated for episode of abdominal pain. Abdominal pain was said to have started today rated 8 out of 10 in intensity located in the epigastric region and boring to the back. He had associated nausea/vomiting and frequency of micturition. He was worked up in the emergency room and found to have elevated lipase however CT was very concerning for pancreatitis and some surrounding duodenitis. He was admitted for inpatient care for management of acute pancreatitis. He also did have issues with elevated blood sugar of greater than 500. He was on metformin on outpatient for management of diabetes. He reports no overt episode of chest pain, fever, chills, rigor. Review of Systems General: Unremarkable Eyes: Unremarkable ENT: Unremarkable Respiratory: Unremarkable Cardiovascular: Unremarkable Gastrointestinal: Nausea, Vomiting, Abdominal Pain Genitourinary: Frequency Musculoskeletal: Unremarkable Integumentary: Unremarkable Neurological: Unremarkable Physical Examination - Physical Exam General: Alert, Oriented x3 HEENT: Atraumatic, Normocephalic Neck: Supple Respiratory: Normal air movement Cardiovascular: Regular rate/rhythm, Normal S1 S2 Gastrointestinal: Tenderness Musculoskeletal: No swelling Neurological: Normal speech, Normal strength at 5/5 x4 extr - Studies Laboratory Data (last 24 hrs) 06/11/22 12:38: Sodium 131 L, Potassium 4.5, BUN 10, Creatinine 1.01, Glucose 531 H*, Total Bilirubin 0.5, AST 20, ALT 39, Alkaline Phosphatase 95, Lipase 143 H 06/11/22 12:00: WBC 12.00 H, Hgb 16.1, Hct 46.0, Plt Count 192 Assessment and Plan - Plan Acute pancreatitis: Patient does have episode of acute pancreatitis depicted on imaging of CT abdomen/pelvis. We have started IV antibiotic therapy, IV lactated Ringer solution and morphine for pain control. We will review triglyceride level for additional management. He will be n.p.o. for now. History of hypertriglyceridemia: Patient has had issues with elevated triglyceride in the past. We will resume home statin therapy and put patient on insulin drip for management pending further review. Poorly controlled diabetesDKA: Patient has elevated glucose of greater than 500. Insulin drip started for management. Monitor blood sugar every 6. We will monitor for overt decompensation to DKA. We will start DKA protocol if there is any concerning issues. Prophylaxis: Lovenox for DVT prophylaxis CODE STATUS: Full code Disposition: We will treat his multiple endocrine issues and discharge him when he is clinically stable. - Advance Directives Does patient have a Living Will: No Does patient have a Durable POA for Healthcare: No
[2022-06-11] MEDS ORDERED: D50W 25 GM/50 ML SYRINGE IV PRN (15:57)
[2022-06-11] MEDS ORDERED: GLUCAGON 1 MG/VIAL IM PRN (15:57)
[2022-06-11] MEDS ORDERED: Ringers Lactate 1,000 ML IV SCH (16:00)
[2022-06-11 16:13] LABS: LDL, Direct 80 mg/dL (100-129)
[2022-06-11] MEDS ORDERED: D10W 125 ML IV PRN (16:34)
[2022-06-11] MEDS: INSULIN -REGULAR HUMAN 50 UNIT/0.5 ML ML SQ SCH (18:00)
[2022-06-11 19:34] LABS: SARS-CoV-2 Antigen Rapid Res Negative (Negative)
[2022-06-11] MEDS ORDERED: NA CHLORIDE 0.9% 100 ML ONE (19:34)
[2022-06-11] MEDS ORDERED: CEFEPIME 1 GM/VIAL ONE (19:34)
[2022-06-11] MEDS ORDERED: D5 0.45 NS 1,000 ML IV ONE (19:35)
[2022-06-11] MEDS: CEFEPIME 1 GM in NA CHLORIDE 0.9% 100 ML IV SCH (19:45)
[2022-06-11] MEDS: D5 0.45 NS 1,000 ML IV SCH (19:45)
[2022-06-11] MEDS: INSULIN -REGULAR HUMAN 100 UNIT in NA CHLORIDE 0.9% 100 ML IV SCH (19:46)
[2022-06-12] MEDS: MORPHINE 2 MG/ML SYR IV PRN ×2 (02:33→10:32)
[2022-06-12] MEDS: D5 0.45 NS 1,000 ML IV SCH (02:34)
[2022-06-12] MEDS: CEFEPIME 1 GM in NA CHLORIDE 0.9% 100 ML IV SCH (05:48)
[2022-06-12] MEDS: INSULIN -REGULAR HUMAN 50 UNIT/0.5 ML ML SQ SCH ×4 (06:00→16:52)
[2022-06-12] MEDS ORDERED: INFLUENZA VACCINE (for 6+ mo) 0.5 ML DOSE IMVAC ONE (08:00)
[2022-06-12 08:14] LABS: Absolute Lymphocytes (CBC) 1.5 K/uL (0.7-4.9); Hematocrit 43.5 % (39.6-49.0); Lymphocytes % 14.6 % (15.3-44.8); MCV 85.2 fL (80-100); MPV 9.2 fL (7.6-11.3); RBC Red Blood Cell Count 5.11 M/uL (4.33-5.43)
[2022-06-12 08:42] LABS: BUN Blood Urea Nitrogen 8 mg/dL (7-18); Bicarbonate 24 mmol/L (21-32); Glomerular Filtration Rate 130 ml/min (=/>90); Glucose Level 233 mg/dL (74-106); HDL Cholesterol 31 mg/dL (40-60); Potassium 3.8 mmol/L (3.5-5.1); Sodium Level 133 mmol/L (136-145)
[2022-06-12 08:54] LABS: LDL, Direct 49 mg/dL (100-129)
[2022-06-12] MEDS: D5LR 1,000 ML IV SCH ×2 (09:24→16:52)
[2022-06-12] MEDS: FENOFIBRATE 160 MG TAB PO SCH (09:24)
[2022-06-12] MEDS: ENOXAPARIN 40 MG/0.4 ML SQ SCH (16:52)
[2022-06-12] MEDS ORDERED: KETOROLAC 30 MG/ML INJ IV ONE (18:45)
[2022-06-12] MEDS: INSULIN -REGULAR HUMAN 100 UNIT in NA CHLORIDE 0.9% 100 ML IV SCH (19:13)
--- NOTE | 2022-06-12 19:55 | P.PN ---
Subjective Date of Service: 06/12/22 Chief Complaint: Acute pancreatitis. No acute events overnight. He reports that he continues to have abdominal pain; however, it is improved compared to admission. He denies any chest pain, shortness of breath, nausea, or vomiting. Review of Systems 10-point ROS is otherwise unremarkable Gastrointestinal: Abdominal Pain (mid-epigastric) Physical Examination - Vital Signs Temperature: 98.3 F Blood Pressure: 121/78 Pulse: 83 Respirations: 15 Pulse Ox (%): 98 - Physical Exam General: Alert, In no apparent distress, Oriented x3 HEENT: Atraumatic, Mucous membr. moist/pink, EOMI, Sclerae nonicteric Neck: JVD not distended Respiratory: Clear to auscultation bilaterally, Normal air movement Cardiovascular: No edema, Regular rate/rhythm, Normal S1 S2, No gallops, No rubs, No murmurs Gastrointestinal: Normal bowel sounds, Soft and benign, Non-distended, No rebound, No guarding, Tenderness (mid-epigastric) Musculoskeletal: No clubbing Integumentary: No rashes Neurological: Normal speech, Normal affect Assessment And Plan - Plan # Acute Hypertriglyceridemia-Induced Pancreatitis # Dyslipidemia with Hepatic Steatosis # Suspect Intrapancreatic Cysts (vs Pseudocysts?) - Evaluation thus far: - Lipase = 143 - Presenting lipid panel = TC 295, LDL 80, HDL 22, TG 2847 - RUQ ultrasound = "negative for cholelithiasis or acute cholecystitis. Hepatic steatosis with fatty sparing at the gallbladder fossa." - CT abdomen/pelvis = "acute pancreatitis involving the pancreatic head and neck. Adjacent duodenitis. Suggestion of small early intrapancreatic cysts, the largest in the region of the uncinate process measuring 1.5 centimeter." - Management plan: - Continue insulin drip and trend triglyceride level - D5-LR @ 125 mL/hr while on insulin drip - Started fenofibrate - Symptomatic management - NPO # Hyperglycemia in Type II Diabetes Mellitus Although he had hyperglycemia, he does not have diabetic ketoacidosis. His bica rbonate level is within normal limits, his ketone level is negative, and he does not have an anion gap. - Continue insulin drip as described above to address his hypertriglyceridemia - Obtain Hgb A1c Wai Allan M.D.
[2022-06-12] MEDS: CEFEPIME 2 GM in NA CHLORIDE 0.9% 100 ML IV SCH (20:13)
[2022-06-12 20:59] LABS: HDL Cholesterol 31 mg/dL (40-60)
[2022-06-12 21:11] LABS: LDL, Direct 58 mg/dL (100-129)
[2022-06-13] MEDS: D5LR 1,000 ML IV SCH ×3 (02:20→18:38)
[2022-06-13 05:49] LABS: ALT/SGPT 33 U/L (16-61); AST/SGOT 27 U/L (15-37); Alkaline Phosphatase 75 U/L (45-117); BUN Blood Urea Nitrogen 8 mg/dL (7-18); Bicarbonate 27 mmol/L (21-32); Bilirubin Total 0.5 mg/dL (0.2-1.0); Glomerular Filtration Rate 124 ml/min (=/>90); Glucose Level 130 mg/dL (74-106); HDL Cholesterol 30 mg/dL (40-60); Potassium 3.3 mmol/L (3.5-5.1); Protein, Total 6.6 g/dL (6.4-8.2); Sodium Level 136 mmol/L (136-145)
[2022-06-13] MEDS: INSULIN -REGULAR HUMAN 50 UNIT/0.5 ML ML SQ SCH ×4 (06:00→17:48)
[2022-06-13 06:03] LABS: LDL, Direct 71 mg/dL (100-129)
[2022-06-13 06:22] VITALS: BMI 29.8
[2022-06-13 07:46] VITALS: O2SAT 100
[2022-06-13] MEDS: CEFEPIME 2 GM in NA CHLORIDE 0.9% 100 ML IV SCH ×2 (08:35→20:08)
[2022-06-13] MEDS: FENOFIBRATE 160 MG TAB PO SCH (08:35)
[2022-06-13 12:51] LABS: LDL, Direct 80 mg/dL (100-129)
--- NOTE | 2022-06-13 13:06 | P.PN ---
Subjective Date of Service: 06/13/22 Chief Complaint: Acute pancreatitis. No acute events overnight. He reports that his abdominal pain completely resolved. His triglycerides remain elevated, but continue to improve on the insulin drip. He denies any chest pain, shortness of breath, nausea, or vomiting. He mentions that he has had several episodes of acute pancreatitis in the past for hypertriglyceridemia. Review of Systems 10-point ROS is otherwise unremarkable Physical Examination - Vital Signs Temperature: 97.7 F Blood Pressure: 121/76 Pulse: 76 Respirations: 16 Pulse Ox (%): 100 Assessment And Plan - Plan - Physical Exam General: Alert, In no apparent distress, Oriented x3 HEENT: Atraumatic,Sclerae nonicteric Neck: JVD not distended Respiratory: Clear to auscultation bilaterally, Normal air movement Cardiovascular: No edema, Regular rate/rhythm, No murmurs Gastrointestinal: Normal bowel sounds, Soft, Non-distended, No tenderness Musculoskeletal: No clubbing Integumentary: No rashes Neurological: Normal speech, Normal affect # Acute on Chronic Hypertriglyceridemia-Induced Pancreatitis # Dyslipidemia with Hepatic Steatosis # Suspect Intrapancreatic Cysts (vs Pseudocysts?) - Evaluation thus far: - Lipase = 143 - Presenting lipid panel = TC 295, LDL 80, HDL 22, TG 2847 - Triglyceride trend: 2847 -> 1428 -> 1010 -> 937 - RUQ ultrasound = "negative for cholelithiasis or acute cholecystitis. Hepatic steatosis with fatty sparing at the gallbladder fossa." - CT abdomen/pelvis = "acute pancreatitis involving the pancreatic head and neck. Adjacent duodenitis. Suggestion of small early intrapancreatic cysts, the largest in the region of the uncinate process measuring 1.5 centimeter." - Management plan: - Continue insulin drip and trend triglyceride level - D5-LR @ 125 mL/hr while on insulin drip - Plan to transition off of insulin drip once triglyceride levels < 500 - Continue fenofibrate - Symptomatic management - Start clear liquid diet - Would benefit from Gastroenterology follow-up as an outpatient # Hyperglycemia in Type II Diabetes Mellitus Although he had hyperglycemia, he does not have diabetic ketoacidosis. His bicarbonate level is within normal limits, his ketone level is negative, and he does not have an anion gap. - Continue insulin drip as described above to address his hypertriglyceridemia - Hgb A1c = 10.4 % Wai Allan M.D.
[2022-06-13] MEDS: ENOXAPARIN 40 MG/0.4 ML SQ SCH (16:59)
[2022-06-13 18:18] LABS: Potassium 3.3 mmol/L (3.5-5.1)
[2022-06-13 18:30] LABS: LDL, Direct 85 mg/dL (100-129)
[2022-06-13] MEDS: INSULIN -REGULAR HUMAN 100 UNIT in NA CHLORIDE 0.9% 100 ML IV SCH (22:44)
[2022-06-14 01:50] LABS: LDL, Direct 90 mg/dL (100-129)
[2022-06-14] MEDS: D5LR 1,000 ML IV SCH ×5 (03:57→22:32)
[2022-06-14 05:35] LABS: BUN Blood Urea Nitrogen 5 mg/dL (7-18); Bicarbonate 28 mmol/L (21-32); Glomerular Filtration Rate 124 ml/min (=/>90); Glucose Level 182 mg/dL (74-106); HDL Cholesterol 27 mg/dL (40-60); Potassium 3.8 mmol/L (3.5-5.1); Sodium Level 137 mmol/L (136-145)
[2022-06-14] MEDS: INSULIN -REGULAR HUMAN 50 UNIT/0.5 ML ML SQ SCH ×4 (05:47→18:00)
[2022-06-14 05:59] LABS: LDL, Direct 89 mg/dL (100-129)
[2022-06-14] MEDS: FENOFIBRATE 160 MG TAB PO SCH (08:30)
[2022-06-14] MEDS: CEFEPIME 2 GM in NA CHLORIDE 0.9% 100 ML IV SCH ×2 (08:31→20:02)
[2022-06-14 13:02] LABS: LDL, Direct 106 mg/dL (100-129)
--- NOTE | 2022-06-14 13:19 | P.PN ---
Subjective Date of Service: 06/14/22 Chief Complaint: Acute pancreatitis. No acute events overnight. He reports that his abdominal pain completely resolved. His triglycerides remain elevated, but are gradually down-trending. He denies any chest pain, shortness of breath, nausea, or vomiting. He states that he is hungry. Will advance to Full Liquid diet. Review of Systems 10-point ROS is otherwise unremarkable Gastrointestinal: Abdominal Pain (resolved) Physical Examination - Vital Signs Temperature: 97.2 F Blood Pressure: 122/83 Pulse: 71 Respirations: 14 Pulse Ox (%): 100 Assessment And Plan - Plan - Physical Exam General: Alert, In no apparent distress, Oriented x3 HEENT: Atraumatic,Sclerae nonicteric Neck: JVD not distended Respiratory: Clear to auscultation bilaterally, Normal air movement Cardiovascular: No edema, Regular rate/rhythm, No murmurs Gastrointestinal: Normal bowel sounds, Soft, Non-distended, No tenderness Musculoskeletal: No clubbing Integumentary: No rashes Neurological: Normal speech, Normal affect # Acute on Chronic Hypertriglyceridemia-Induced Pancreatitis # Dyslipidemia with Hepatic Steatosis # Suspect Intrapancreatic Cysts (vs Pseudocysts?) - Evaluation thus far: - Lipase = 143 - Presenting lipid panel = TC 295, LDL 80, HDL 22, TG 2847 - Triglyceride trend: 2847 -> 1428 -> 1010 -> 937 -> 816 -> 675 -> 621 -> 637 - RUQ ultrasound = "negative for cholelithiasis or acute cholecystitis. Hepatic steatosis with fatty sparing at the gallbladder fossa." - CT abdomen/pelvis = "acute pancreatitis involving the pancreatic head and neck. Adjacent duodenitis. Suggestion of small early intrapancreatic cysts, the largest in the region of the uncinate process measuring 1.5 centimeter." - Management plan: - Continue insulin drip and trend triglyceride level - D5-LR @ 125 mL/hr while on insulin drip - Plan to transition off of insulin drip once triglyceride levels < 500 - Continue fenofibrate - Symptomatic management - Start clear liquid diet - Would benefit from Gastroenterology follow-up as an outpatient # Hyperglycemia in Type II Diabetes Mellitus Although he had hyperglycemia, he does not have diabetic ketoacidosis. His bicarbonate level is within normal limits, his ketone level is negative, and he does not have an anion gap. - Continue insulin drip as described above to address his hypertriglyceridemia - Hgb A1c = 10.4 % Wai Allan M.D.
[2022-06-14 17:29] LABS: Potassium 3.8 mmol/L (3.5-5.1)
[2022-06-14] MEDS: ENOXAPARIN 40 MG/0.4 ML SQ SCH (17:40)
[2022-06-14 17:42] LABS: LDL, Direct 101 mg/dL (100-129)
[2022-06-15] MEDS: INSULIN -REGULAR HUMAN 50 UNIT/0.5 ML ML SQ SCH
[2022-06-15 01:28] LABS: LDL, Direct 104 mg/dL (100-129)
[2022-06-15] MEDS ORDERED: Ringers Lactate 1,000 ML IV SCH (02:00)
[2022-06-15] MEDS ORDERED: D50W 25 GM/50 ML SYRINGE IV PRN (02:11)
[2022-06-15 05:30] LABS: BUN Blood Urea Nitrogen 5 mg/dL (7-18); Bicarbonate 27 mmol/L (21-32); Glomerular Filtration Rate 130 ml/min (=/>90); Glucose Level 127 mg/dL (74-106); HDL Cholesterol 25 mg/dL (40-60); Potassium 3.5 mmol/L (3.5-5.1); Sodium Level 140 mmol/L (136-145)
[2022-06-15 05:43] LABS: LDL, Direct 109 mg/dL (100-129)
[2022-06-15] MEDS ORDERED: INSULIN -REGULAR HUMAN 50 UNIT/0.5 ML ML SQ SCH (07:30)
[2022-06-15] MEDS: FENOFIBRATE 160 MG TAB PO SCH (08:32)
[2022-06-15] MEDS: CEFEPIME 2 GM in NA CHLORIDE 0.9% 100 ML IV SCH (08:32)
--- NOTE | 2022-06-15 09:51 | P.DS ---
Discharge Date: 06/15/22 Disposition: ROUTINE DISCHARGE Discharge Condition: GOOD Reason for Admission: Acute pancreatitis. Brief History of Present Illness: 37-year-old male patient who has medical history significant for diabetes type 2, hypertension, history of hyperlipidemia and on medication of fenofibrate, atorvastatin who was evaluated for episode of abdominal pain. Abdominal pain was said to have started today rated 8 out of 10 in intensity located in the epigastric region and boring to the back. He had associated nausea/vomiting and frequency of micturition. He was worked up in the emergency room and found to have elevated lipase however CT was very concerning for pancreatitis and some surrounding duodenitis. He was admitted for inpatient care for management of acute pancreatitis. He also did have issues with elevated blood sugar of g reater than 500. He was on metformin on outpatient for management of diabetes. He reports no overt episode of chest pain, fever, chills, rigor. Hospital Course: Patient triglycerides are normalized. Patient tolerating diet without any pain. Patient states he is ready to go home. Did talk to him about making sure he is pentecostal with taking his medications or he will have more frequent flareups. Talked him about a low-fat diet along with his ADA diet. We will also add fish oil to his regimen. He does note that he could take this and reduce his triglyceride level by almost half. Hopefully, he will be compliant going forward. At this time, if he tolerates his lunch he is stable for discharge home. Vital Signs/Physical Exam: Temp Pulse Resp BP Pulse Ox 97.1 F 68 16 106/72 100 06/15/22 04:00 06/15/22 06:00 06/15/22 06:00 06/15/22 06:00 06/14/22 18:00 General: Alert, In no apparent distress, Oriented x3 Laboratory Data at Discharge: WBC 10.00 K/uL (4.3-10.9) 06/12/22 07:58 Hgb 14.8 g/dL (13.6-17.9) D 06/12/22 07:58 Hct 43.5 % (39.6-49.0) 06/12/22 07:58 Plt Count 148 K/uL (152-406) L 06/12/22 07:58 Sodium 140 mmol/L (136-145) 06/15/22 04:45 Potassium 3.5 mmol/L (3.5-5.1) 06/15/22 04:45 BUN 5 mg/dL (7-18) L 06/15/22 04:45 Creatinine 0.57 mg/dL (0.70-1.30) L 06/15/22 04:45 Glucose 127 mg/dL (74-106) H 06/15/22 04:45 Total Bilirubin 0.5 mg/dL (0.2-1.0) 06/13/22 05:01 AST 27 U/L (15-37) 06/13/22 05:01 ALT 33 U/L (16-61) 06/13/22 05:01 Alkaline Phosphatase 75 U/L (45-117) 06/13/22 05:01 Triglycerides 496 mg/dL (<150) H 06/15/22 04:45 Cholesterol 223 mg/dL (<200) H 06/15/22 04:45 LDL Cholesterol Direct 109 mg/dL (100-129) 06/15/22 04:45 HDL Cholesterol 25 mg/dL (40-60) L 06/15/22 04:45 Cholesterol/HDL Ratio 8.92 06/15/22 04:45 Lipase 143 U/L (13-75) H 06/11/22 12:38 Home Medications: Atorvastatin Calcium 40 mg PO DAILY 06/11/22 Fenofibrate 134 mg PO DAILY 06/11/22 Insulin Glargine,Hum.rec.anlog [Lantus] 25 units SQ DAILY 06/11/22 Insulin Lispro [Humalog] See Rx Instructions .ROUTE .COMPLEX 06/11/22 Metformin HCl [Glucophage*] 500 mg PO BID 06/11/22 Pioglitazone [Actos*] 15 mg PO DAILY 06/11/22 Cisco-3S/Dha/Epa/Fish Oil [Cisco-3 Fish Oil 1,000 mg Sfgl] 2 each PO BID #120 06/15/22 New Medications: Cisco-3S/Dha/Epa/Fish Oil [Cisco-3 Fish Oil 1,000 mg Sfgl] 2 each PO BID #120 Physician Discharge Instructions: -DC IV and DC home -Follow-up with PCP in 1 to 2 weeks -Follow-up with cassandra architect in 1 to 2 weeks -Please call Dr. Hayes at [phone] if any questions regarding hospital stay -Please call nursing station at [phone] if any nursing or medication questions -Return to the emergency room if symptoms worsen Diet: ADA (low fat) Activity: Fall precautions Followup: NONE,NONE [Primary Care Provider] - Time spent managing pt's care (in minutes): 35
[2022-06-15 11:39] VITALS: BP 122/85; TEMP 97.9
== END 2022-06-15 10:25 | disposition home or self-care (01) | DRG 440 ==
LOC: ER 11:40 → ERHOLD 15:43 → 3RD-ICU 21:50
PROVIDERS: ADMIT Internal Medicine; ATTEND Hospitalist
DX: K85.90 Acute pancreatitis without necrosis or infection, unspecified (principal); E78.5 Hyperlipidemia, unspecified; I10 Essential (primary) hypertension; E11.65 Type 2 diabetes mellitus with hyperglycemia; E78.1 Pure hyperglyceridemia; K76.0 Fatty (change of) liver, not elsewhere classified; K29.80 Duodenitis without bleeding; Z88.0 Allergy status to penicillin; Z79.4 Long term (current) use of insulin; Z79.84 Long term (current) use of oral hypoglycemic drugs; Z91.013 Allergy to seafood; Z79.899 Other long term (current) drug therapy; Z20.822 Contact with and (suspected) exposure to COVID-19
CPT/HCPCS: 36415; 74177; 76705; 80048; 80053; 80061; 82010; 82947; 83036; 83690; 84478; 85025; 87811; 96361; 96374; 96375; 99285; J0692; J1650; J1815; J2270; J2405; J7030; J7120; J7121; J7799; Q9967